=== PATIENT | female | born 1935 | race Caucasian/White ===

== ENCOUNTER 2017-02-25 15:03 | Inpatient (IN) | payer MEDICARE ==
[~2017-02-25] VITALS: Ht 152.4 cm; Wt 93.4 kg
--- NOTE | ~2017-02-25 | PR ---
[place], [place] PROGRESS NOTE NAME: [facility]BER [id number] UNIT #: [id number] ROOM: 404 DOCTOR: BENEDICT JACOBS MD BIRTHDATE: [birth year] DOS: 03/02/2017 SUBJECTIVE: The patient was seen by Dr. Wood yesterday, hemodynamically appears to be stable ____ in sinus rhythm. OBJECTIVE: VITAL SIGNS: Blood pressure is 150/60, heart rate is 75. HEENT: Unremarkable. The patient has 1300 mL in and positive fluid balance today. Yesterday, she was negative of 1330. NECK: Supple, no JVD. LUNGS: Diminished breath sounds. HEART: Sounds are regular. ABDOMEN: Obese, nontender. NEUROLOGIC: Stable. LABORATORY DATA: Hemoglobin 10.9, hematocrit 36.7, BUN and creatinine 35 and 1.25. INR is therapeutic to be 3.0. Cardiac status appears to be stable. IMPRESSION: History of congestive heart failure exacerbation, stable, shortness of breath, gastroesophageal reflux, hypertension, diabetes, and hyperlipidemia. RECOMMENDATIONS: Continue the present medications. Increase activity. Echo has been read by Dr. Wood. Echo revealed ejection fraction well preserved to be 70%, prosthetic aortic valve is functioning normally. Mean gradient is only 2. Left atrium is mildly dilated. Aortic valve cannot be very well visualized. There is bioprosthetic mitral valve. Trace of mitral regurgitation, mild mitral stenosis. Continue the present care. Monitor heart rate and blood pressure and we will follow up. BENEDICT JACOBS MD CM:PNTRANS [id number] BENEDICT JACOBS MD 03/03/17 0220 interface
--- NOTE | ~2017-02-25 | CON ---
[place], [place] REPORT OF CONSULTATION NAME[facility] [id number] UNIT #: [id number] ROOM: 404 DOCTOR: SIVA PALACIOS MD BIRTHDATE: [birth year] DOS: 03/01/2017 HISTORY OF PRESENT ILLNESS: This is an 81-year-old -[place] woman with a history of essential hypertension, hyperlipidemia, type 2 diabetes mellitus and czld-mp-jzfraqyo coronary artery disease. In April of last year, she had 50% stenosis in one of the vessels. LV ejection fraction was normal. At that time, she had a MAGDA performed which demonstrated critical aortic stenosis, LV ejection fraction of 75% and left ventricular hypertrophy. She had aortic valve replacement with a tissue prosthesis. She has never had a heart attack, stroke, cancer or any bleeding. She carries a diagnosis of peripheral vascular disease. She has had pacemaker implanted that I did a few months ago for heart block. She had aortic valve replacement with a tissue valve in March of last year and has had carotid endarterectomy, appendectomy and laparotomy. She does not smoke nor does she drink alcoholic beverages. She lives at home. This patient had noticed increasing shortness of breath over the last few weeks and also tiredness and weakness for a few months as well. She has had no orthopnea, but her swelling of the legs was quite significant, which prompted her to come to the Emergency Department. HOME MEDICATIONS: Include amiodarone 200 mg daily, atorvastatin 10 mg daily, bumetanide 0.5 mg daily, levothyroxine 125 mcg daily, metformin 500 mg b.i.d., potassium chloride 20 mEq daily, warfarin 5 mg alternating with 2.5 mg daily, and Cymbalta 60 mg daily. PHYSICAL EXAMINATION: GENERAL: The patient is moderately obese. She is alert and oriented. She is very pleasant. She is not in any distress. There is no anemia, thyromegaly, or finger clubbing. VITAL SIGNS: Pulse is regular at 64 beats per minute, blood pressure 112/72, previous blood pressure is 148/57. NECK: Normal JVP. AJR was negative. No carotid bruit was present. HEART: There is no cardiomegaly. Auscultation reveals normal aortic component of the second heart sound and a grade 2/6-3/6 early peaking systolic murmur over the aortic area. She has no edema at all in the lower extremities. RESPIRATORY: Auscultation reveals excellent breath sounds with occasional rhonchi and rare crackle. DIAGNOSTIC STUDIES: Chest x-ray on admission did not demonstrate any pulmonary edema. Cardiac size was normal. LABORATORY DATA: An ECG done on admission demonstrated atrial pacing at 63 beats per minute with nonspecific ST segment changes in anterior chest leads. Potassium is 4.2, sodium 141, BUN 29, creatinine 1.24. IMPRESSION: 1. Bioprosthetic aortic valve implanted about 10 months ago for critical aortic [place], [place] REPORT OF CONSULTATION NAME: [facility] GERBER [facility] [id number] UNIT #: [id number] ROOM: 404 DOCTOR: SIVA PALACIOS MD BIRTHDATE: [birth year] stenosis. 2. moderate coronary artery disease, asymptomatic. 3. Possible diastolic heart failure. She had quite a bit of edema of the lower extremities, which has now resolved with use of IV loop diuretic, but radiographic evidence of heart failure was not present on admission; therefore, diastolic heart failure is questionable. She is doing very well now, but has not ambulated at all out of the room since she has been admitted. I recommend ambulation and urinary catheter may be removed. I would like to see her in the office in the next couple of weeks. Thanks for this consult. SIVA PALACIOS MD CM:CONSTR:REPORT OF CONSULTATION 1208 03/02/17 0259 interface
--- NOTE | ~2017-02-25 | PR ---
[place], [place] PROGRESS NOTE NAME: ROMELIA GERBER [facility] #: [id number] UNIT #: [id number] ROOM: 404 DOCTOR: NICOLA RODRÍGUEZ MD BIRTHDATE: [birth year] DOS: 02/28/2017 SUBJECTIVE: The patient who has been admitted to the hospital with congestive heart failure and she is slowly getting better. There is no chest pain, no difficulty breathing, no nausea, no vomiting and she is also having GERD syndrome, hyperlipidemia, diabetes mellitus, hypertension, depression, osteoporosis, hypothyroidism and chronic pain. Her basic metabolic profile shows glucose 130, BUN 36, creatinine 1.33 showing some chronic renal failure and her CBC also showing hypochromic anemia with the hemoglobin 9.9, hematocrit 32.6. The patient is getting iron. OBJECTIVE: VITAL SIGNS: Her blood pressure is 125/71, pulse 74, respirations 20, temperature 97.6. HEART: Regular. CHEST: Having not much crepitations. EXTREMITIES: There is no swelling of legs. The patient is showing some improvement. NICOLA RODRÍGUEZ MD CM:PNTRANS 1246 1 NICOLA RODRÍGUEZ MD 03/01/17111 interface
[~2017-02-25 15:03] MED LIST: AMOXICILLIN500 MG PO; CEFTRIAXONE1 GM IM; CIPRO500 MG PO; CIPROFLOXACIN500 MG PO; CITALOPRAM20 MG PO; CITALOPRAM40 MG PO; COUMADIN0.5 M1 PO; COUMADIN10 M1 PO; COUMADIN2.5 M1 PO; COUMADIN5 M2 PO; CRESTOR5 MG PO; CYMBALTA30 MG PO; CYMBALTA60 MG PO; Coumadin2.5 MG PO; GLUCOPHAGE500 M1 PO; JANUMET 1000 MG1 TA1 PO; KEFLEX500 MG PO; KLORVESS EFFER20 ME1 PO; LASIX40 MG PO; LEVEMIR100 U/ML SC; LEXAPRO20 MG; LIPITOR40 MG PO; METOPROLOL TART50 M1 PO; METOPROLOL25 MG PO; OSCAL,OYSTER S500 MG PO; PREDNISONE10 MG PO; PRILOSEC20 MG PO; PT DOES NOT KNOW MED; SYNTHROID,LEVO25 MCG PO; SYNTHROID0.125 MG PO; SYNTHROID0.15 MG PO; TOVIAZ8 MG; TRAMADOL HCL50 MG PO; TRILEPTAL PO; TRILIPIX45 M1; TRILIPIX45 M1 PO; VICODIN 5/500 505 MG PO; WARFARIN SOD2 MG PO; ZOFRAN ODT4 MG SL
[2017-02-25 16:00] VITALS: BP 126/84
[2017-02-25 18:13] LABS: CKMB 2.5 ng/ml (0.5-3.6); CPK 67 U/L (26-192)
[2017-02-25 18:14] LABS: TROPONIN I < 0.015 ng/ml (<0.045)
[2017-02-25 20:00] VITALS: BP 130/80; BP 154/58
[2017-02-26] VITALS: BP 146/60
[2017-02-26 00:14] LABS: CKMB 2.3 ng/ml (0.5-3.6); CPK 55 U/L (26-192); TROPONIN I < 0.015 ng/ml (<0.045)
[2017-02-26 06:03] LABS: BASO # 0.1 10*3/uL (0.0-0.1); BASO % 0.9 % (0.0-1.0); EOS # 0.4 10*3/uL (0.0-0.4); HEMATOCRIT 31.4 % (37.0-47.0); HEMOGLOBIN 9.3 g/dl (12.0-16.0); LYMPH # 2.5 10*3/uL (1.3-4.4); MEAN CELL VOLUME 85.1 fl (81.0-99.0); MEAN CORPUSCULAR HGB 25.2 pg (27.0-31.0); MEAN CORPUSCULAR HGB CONC 29.6 g/dl (33.0-37.0); MEAN PLATELET VOLUME 11.3 fl (9.6-12.3); MONO # 0.9 10*3/uL (0.1-1.0); MONO % 11.4 % (3.0-9.0); NEUT # 3.6 10*3/uL (2.3-7.9); NEUT % 48.2 % (47.0-73.0); PLATELET COUNT AUTOMATED 189 10*3/uL (130-400); RED BLOOD COUNT 3.69 10*6/uL (4.10-5.10); RED CELL DISTRI WIDTH 16.2 % (0-14.5); WHITE BLOOD COUNT 7.4 10*3/uL (4.8-10.8)
[2017-02-26 06:10] LABS: CKMB 1.5 ng/ml (0.5-3.6); CPK 60 U/L (26-192)
[2017-02-26 06:17] LABS: TROPONIN I < 0.015 ng/ml (<0.045)
[2017-02-26 06:42] LABS: BILIRUBIN, TOTAL 0.4 mg/dl (0.2-1.0); MAGNESIUM 1.5 mg/dL (1.5-2.1); PHOSPHOROUS 3.2 mg/dL (2.5-4.9); POTASSIUM 4.5 mmol/L (3.5-5.1); TOTAL PROTEIN 7.1 gm/dL (6.4-8.2)
[2017-02-26 06:43] LABS: INTERNATIONAL NORM RATIO 2.2 (2.0-3.5); PROTHROMBIN TIME 24.2 SECONDS (9.0-12.4)
[2017-02-26 06:49] LABS: FREE T4 1.23 ng/dl (0.76-1.46); THYROID STIM HORMONE (HS) 3.16 uIU/ml (0.358-4.75)
[2017-02-26 08:00] VITALS: BP 156/82
[2017-02-26 09:24] LABS: FOLIC ACID 15.92 ng/mL (>5.38); VITAMIN D, 25-HYDROXY 31.8 ng/mL (30-100)
[2017-02-26] MEDS ORDERED: BUMETANIDE0.5 MG PO (11:13)
[2017-02-26] MEDS ORDERED: POTASSIUM CHLO20 ME3 PO (11:14)
[2017-02-26] MEDS ORDERED: AMIODARONE HCL200 MG PO (11:15)
[2017-02-26 12:00] VITALS: BP 160/76
[2017-02-26 16:00] VITALS: BP 164/60
[2017-02-26 20:00] VITALS: BP 120/55
[2017-02-27] VITALS: BP 153/61
[2017-02-27 06:58] LABS: BASO # 0.1 10*3/uL (0.0-0.1); BASO % 0.7 % (0.0-1.0); EOS # 0.3 10*3/uL (0.0-0.4); EOS % 4.4 % (1.0-4.0); HEMATOCRIT 32.6 % (37.0-47.0); HEMOGLOBIN 9.9 g/dl (12.0-16.0); IG # 0.1 10*3/uL (0.0-0.1); LYMPH # 2.2 10*3/uL (1.3-4.4); LYMPH % 29.8 % (27.0-41.0); MEAN CELL VOLUME 84.5 fl (81.0-99.0); MEAN CORPUSCULAR HGB 25.6 pg (27.0-31.0); MEAN CORPUSCULAR HGB CONC 30.4 g/dl (33.0-37.0); MEAN PLATELET VOLUME 10.6 fl (9.6-12.3); MONO # 0.8 10*3/uL (0.1-1.0); MONO % 10.9 % (3.0-9.0); NEUT # 3.9 10*3/uL (2.3-7.9); NEUT % 53.5 % (47.0-73.0); PLATELET COUNT AUTOMATED 212 10*3/uL (130-400); RED BLOOD COUNT 3.86 10*6/uL (4.10-5.10); WHITE BLOOD COUNT 7.3 10*3/uL (4.8-10.8)
[2017-02-27 07:19] LABS: ALBUMIN 3.1 gm/dl (3.1-4.5); BILIRUBIN, TOTAL 0.4 mg/dl (0.2-1.0); POTASSIUM 4.2 mmol/L (3.5-5.1); TOTAL PROTEIN 7.4 gm/dL (6.4-8.2)
[2017-02-27 08:00] VITALS: BP 103/62; BP 153/63
[2017-02-27 08:15] VITALS: BP 156/68
[2017-02-27 12:00] VITALS: BP 153/64
[2017-02-27 16:00] VITALS: BP 126/36
[2017-02-27 20:00] VITALS: BP 152/96
[2017-02-28] VITALS: BP 138/64
[2017-02-28 07:36] LABS: POTASSIUM 4.1 mmol/L (3.5-5.1)
[2017-02-28 08:00] VITALS: BP 154/64
[2017-02-28 11:48] VITALS: BP 125/71
[2017-02-28 16:00] VITALS: BP 126/57
[2017-02-28 20:00] VITALS: BP 135/51
[2017-03-01] VITALS: BP 148/57
[2017-03-01 07:24] LABS: INTERNATIONAL NORM RATIO 2.1 (2.0-3.5)
[2017-03-01 08:00] VITALS: BP 112/72
[2017-03-01 12:00] VITALS: BP 151/55
[2017-03-01 13:00] LABS: POTASSIUM 4.3 mmol/L (3.5-5.1)
[2017-03-01 16:00] VITALS: BP 149/60
[2017-03-01 20:00] VITALS: BP 145/50
[2017-03-02] VITALS: BP 153/66
[2017-03-02 06:40] LABS: BASO # 0.1 10*3/uL (0.0-0.1); BASO % 0.8 % (0.0-1.0); EOS # 0.4 10*3/uL (0.0-0.4); EOS % 3.9 % (1.0-4.0); HEMATOCRIT 36.7 % (37.0-47.0); HEMOGLOBIN 10.9 g/dl (12.0-16.0); IG # 0.1 10*3/uL (0.0-0.1); LYMPH # 2.5 10*3/uL (1.3-4.4); LYMPH % 27.1 % (27.0-41.0); MEAN CELL VOLUME 86.2 fl (81.0-99.0); MEAN CORPUSCULAR HGB 25.6 pg (27.0-31.0); MEAN CORPUSCULAR HGB CONC 29.7 g/dl (33.0-37.0); MEAN PLATELET VOLUME 9.9 fl (9.6-12.3); MONO # 1.4 10*3/uL (0.1-1.0); MONO % 14.9 % (3.0-9.0); NEUT # 4.9 10*3/uL (2.3-7.9); NEUT % 52.7 % (47.0-73.0); PLATELET COUNT AUTOMATED 234 10*3/uL (130-400); RED BLOOD COUNT 4.26 10*6/uL (4.10-5.10); RED CELL DISTRI WIDTH 16.4 % (0-14.5); WHITE BLOOD COUNT 9.3 10*3/uL (4.8-10.8)
[2017-03-02 06:59] LABS: PROTHROMBIN TIME 34.3 SECONDS (9.0-12.4)
[2017-03-02 07:07] LABS: ALBUMIN 3.1 gm/dl (3.1-4.5); BILIRUBIN, TOTAL 0.2 mg/dl (0.2-1.0); POTASSIUM 4.9 mmol/L (3.5-5.1); TOTAL PROTEIN 7.8 gm/dL (6.4-8.2)
[2017-03-02 08:00] VITALS: BP 148/63
[2017-03-02] MEDS ORDERED: VITAMIN B121000 MC1 PO (10:44)
== END 2017-03-02 12:48 | disposition home health service (06) | DRG 291 ==
LOC: 4E 15:03
PROVIDERS: Internal Medicine
DX: I13.0 Hypertensive heart and chronic kidney disease with heart failure and stage 1 through stage 4 chronic kidney disease, or unspecified chronic kidney disease (principal); I50.33 Acute on chronic diastolic (congestive) heart failure; N17.0 Acute kidney failure with tubular necrosis; E44.0 Moderate protein-calorie malnutrition; E11.22 Type 2 diabetes mellitus with diabetic chronic kidney disease; I05.2 Rheumatic mitral stenosis with insufficiency; Z68.41 Body mass index [BMI] 40.0-44.9, adult; K21.9 Gastro-esophageal reflux disease without esophagitis; E78.5 Hyperlipidemia, unspecified; F32.9 Major depressive disorder, single episode, unspecified; M81.0 Age-related osteoporosis without current pathological fracture; M19.90 Unspecified osteoarthritis, unspecified site; E03.9 Hypothyroidism, unspecified; E53.8 Deficiency of other specified B group vitamins; R91.1 Solitary pulmonary nodule; N18.3 Chronic kidney disease, stage 3 (moderate); D50.9 Iron deficiency anemia, unspecified; G89.29 Other chronic pain; E11.51 Type 2 diabetes mellitus with diabetic peripheral angiopathy without gangrene; Z53.29 Procedure and treatment not carried out because of patient's decision for other reasons; Z95.0 Presence of cardiac pacemaker; Z86.14 Personal history of Methicillin resistant Staphylococcus aureus infection; Z82.3 Family history of stroke; Z82.49 Family history of ischemic heart disease and other diseases of the circulatory system; Z88.1 Allergy status to other antibiotic agents; Z88.8 Allergy status to other drugs, medicaments and biological substances; Z79.899 Other long term (current) drug therapy; Z79.84 Long term (current) use of oral hypoglycemic drugs; Z79.01 Long term (current) use of anticoagulants; Z95.2 Presence of prosthetic heart valve

== ENCOUNTER → 2017-04-05 | Outpatient (CLI) | payer MEDICARE ==
[~2017-04-05] MED LIST changes: +AMIODARONE HCL200 MG PO; +BUMETANIDE0.5 MG PO; +POTASSIUM CHLO20 ME3 PO; +VITAMIN B121000 MC1 PO
== END | disposition home or self-care (01) ==
LOC: RAD 12:07
DX: I51.7 Cardiomegaly (principal); R05 Cough; R09.89 Other specified symptoms and signs involving the circulatory and respiratory systems; R06.02 Shortness of breath

== ENCOUNTER → 2017-06-03 | Outpatient (CLI) | payer MEDICARE | END | disposition home or self-care (01) | LOC: CT 06-02 10:00 → LAB 02:12 → CT 08:00 | PROVIDERS: Radiology Diagnostic Radiology | DX: R91.1 Solitary pulmonary nodule (principal); N28.1 Cyst of kidney, acquired; E11.9 Type 2 diabetes mellitus without complications; Z95.0 Presence of cardiac pacemaker; Z95.1 Presence of aortocoronary bypass graft ==

== ENCOUNTER 2017-06-25 16:36 | Inpatient (IN) | payer MEDICARE ==
[~2017-06-25] VITALS: Ht 152.4 cm; Wt 93.7 kg
--- NOTE | ~2017-06-25 | CON ---
[place], [place] REPORT OF CONSULTATION NAME: ROMELIA GERBER UNIT #: [id number] ROOM: 501 DOCTOR: VILMA SHAW,FEBRUARY BIRTHDATE: [birth year] DOS: 06/26/2017 HISTORY OF PRESENT ILLNESS: The patient is an 81-year-old female who is admitted from home with rash over her, which originally began under her abdominal pannus. She has issues with recurrent yeast in the area and usually uses Bag Riggins to clear it up. She saw Dr. Mccabe on Wednesday, who gave her Lamisil cream. He also gave her Flexeril for her sciatica. She developed increasing rash, was started on Diflucan yesterday. I reviewed the chart, discussed with the patient and contacted the patient's daughter as the patient is not a great historian for what meds were new and what she has had previously. The daughter states she is almost certain she has had the Diflucan previously and tolerated it without issue. The patient does have a history of cutaneous MRSA infections as well as other MRSA infections in the remote past. She was started on Zosyn and vancomycin for cellulitis of her mons pubis as well as nystatin powder earlier today. She has had no fevers or chills, does continue to have discomfort at the mons pubis area. Temperature of 100 since admission. PAST MEDICAL HISTORY: As above as well as chronic kidney disease, depression, diabetes, esophageal stricture, GERD, hyperlipidemia, hypertension, MRSA infection of her back as well as epidural abscess in 2003, MRSA of the urine in 2009, hypothyroidism, lung nodule, osteoarthritis, osteoporosis, peripheral vascular disease, severe aortic stenosis, bladder incontinence, vitamin B12 deficiency, carotid endarterectomy, CABG, pacemaker, appendectomy, exploratory laparotomy and esophageal dilatation. SOCIAL HISTORY: Nonsmoker, nondrinker, no illicit drug use. FAMILY MEDICAL HISTORY: Includes coronary artery disease in her father who in his 60s. Mother of a CVA at the age of 83. ALLERGIES: INCLUDE TAPE, DIAZEPAM, LEVOFLOXACIN AND NITROFURANTOIN. REVIEW OF SYSTEMS: As above in history of present illness as well as again denies any fevers or chills. No nausea, vomiting or diarrhea. No cough or shortness of breath. She does have rash under her arms, a little on her upper back area, on wrist, lower legs as well as significantly over her inguinal folds, mons pubis and under her breasts. Mild lower extremity edema. Further review of systems is unremarkable. CURRENT MEDICATIONS: Include vancomycin, insulin, K-Dur, nystatin powder, Lopressor, Cymbalta, Cordarone, Synthroid, Coumadin, Lipitor, Zosyn, Zofran, milk of magnesia, [place] and Tylenol. LABORATORY DATA: Show WBC is 10.0, platelets 208. BUN 27, creatinine 1.37, lactic acid of 3. UA noted. LFTs within normal limits. PHYSICAL EXAMINATION: GENERAL: An 81-year-old obese female, in no acute distress, nontoxic in appearance. HEAD, EYES, EARS, NOSE AND THROAT: Normocephalic. No thrush. Does have rash [place], [place] REPORT OF CONSULTATION NAME: ROMELIA GERBER UNIT #: [id number] ROOM: [facility] DOCTOR: VILMA SHAW,FEBRUARY BIRTHDATE: [birth year] up around her neck which is little bit of weeping, fungal verus adverse drug reaction. LUNGS: Clear to auscultation bilaterally. Respirations even and unlabored. HEART: Regular rhythm. No murmur appreciated. ABDOMEN: Soft, obese abdomen that is nontender, but she has under her abdominal pannus rash that extends from under the abdominal pannus, across the mons pubis, down over the entire groin and to the upper thighs. She does have satellite lesions consistent with what appears to be a mixture of fungal as well as cellulitis. She has induration and tenderness of the mons pubis, so no areas of fluctuance, no open wounds, but excoriation of the area along the seam underneath the panties. EXTREMITIES: +1 edema bilateral lower extremities, little petechial rash in bilateral lower anterior legs. She also has rash noted on her left wrist, under her axilla and under her breasts which is extensive as well as some on her upper back and posterior left shoulder. SKIN: Warm and dry. She also has ____ and mild erythematous look to her face as well. ASSESSMENT: Cellulitis of the mons pubis that resulted from extensive tinea corporis, which now appears to be complicated by an adverse drug reaction rash. This may be due to the Lamisil that she was using topically or possibly the Flexeril, which was a new medication for her. PLAN: At this point, we will continue the vancomycin and Zosyn, add fluconazole and check her MRSA screen, so we can possibly narrow down these antibiotics and follow up on the urine screen that has Gram-negative rods. The urine culture should also help guide antibiotics not for UTI, but due to the fact that she is incontinent and apparently contaminate the area with her urine quite frequently. Case was discussed with Dr. Myles Roman. MARIO ESPARZA CNP MYLES ROMAN MD CM:CONSTR:REPORT OF CONSULTATION 1810 06/28/17 0925 interface
--- NOTE | ~2017-06-25 | CON ---
[place], [place] REPORT OF CONSULTATION NAME: ROMELIA GERBER UNIT #: [id number] ROOM: 501 DOCTOR: JESSIE BELTRÁN,MYLES [place] BIRTHDATE: [birth year] DOS: 06/26/2017 ADDENDUM I agree with above plans as described after reviewing her chart and examining her labs and microbiology. We will follow the patient up clinically and make adjustments accordingly and follow along. Thanks for allowing us to the patient and participate in care. MYLES ROMAN MD CM:CONSTR:REPORT OF CONSULTATION 1202 06/28/17 2137 interface
--- NOTE | ~2017-06-25 | EKG ---
[place], [place] ELECTROCARDIOGRAM REPORT NAME: ROMELIA GERBER UNIT #: [id number] ROOM: [facility] DOCTOR: SIVA PALACIOS MD BIRTHDATE: [birth year] DOS: 06/25/2017 TIME: 1713 hour. Atrial pacing at 64 beats per minute. No evidence of ischemia or infraction. No previous tracing is available for comparison. SIVA PALACIOS MD CM:EKGRPT:ELECTROCARDIOGRAM REPORT [id number] SIVA PALACIOS MD
[2017-06-25 16:57] VITALS: BP 158/77
[2017-06-25 17:51] LABS: BASO # 0.1 10*3/uL (0.0-0.1); BASO % 0.7 % (0.0-1.0); EOS # 0.4 10*3/uL (0.0-0.4); EOS % 3.4 % (1.0-4.0); HEMATOCRIT 41.2 % (37.0-47.0); HEMOGLOBIN 12.7 g/dl (12.0-16.0); IG # 0.1 10*3/uL (0.0-0.1); LYMPH # 3.8 10*3/uL (1.3-4.4); LYMPH % 30.1 % (27.0-41.0); MEAN CELL VOLUME 92.2 fl (81.0-99.0); MEAN CORPUSCULAR HGB 28.4 pg (27.0-31.0); MEAN CORPUSCULAR HGB CONC 30.8 g/dl (33.0-37.0); MONO # 1.5 10*3/uL (0.1-1.0); MONO % 11.8 % (3.0-9.0); NEUT # 6.7 10*3/uL (2.3-7.9); NEUT % 53.1 % (47.0-73.0); PLATELET COUNT AUTOMATED 270 10*3/uL (130-400); RED BLOOD COUNT 4.47 10*6/uL (4.10-5.10); RED CELL DISTRI WIDTH 15.7 % (0-14.5); WHITE BLOOD COUNT 12.6 10*3/uL (4.8-10.8)
[2017-06-25 17:56] LABS: ALBUMIN 2.9 gm/dl (3.1-4.5); BILIRUBIN, TOTAL 0.3 mg/dl (0.2-1.0); TOTAL PROTEIN 7.3 gm/dL (6.4-8.2)
[2017-06-25 18:12] LABS: BILIRUBIN NEGATIVE (NEGATIVE); BLOOD NEGATIVE (NEGATIVE); CLARITY CLEAR (CLEAR); COLOR YELLOW (YELLOW); GLUCOSE NEGATIVE (NEGATIVE); KETONE NEGATIVE (NEGATIVE); LEUKO ESTERASE 1+ (NEGATIVE); NITRITE POSITIVE (NEGATIVE); PH 5.5 (5.0-9.0); PROTEIN NEGATIVE (NEGATIVE); SPECIFIC GRAVITY 1.015 (1.005-1.030); UROBILINOGEN 0.2 E.U./dl (0.2-1.0)
[2017-06-25 18:19] LABS: URINE REFLEX COMMENT YES (NO)
[2017-06-25 18:20] LABS: CALCIUM OXALATE CRYSTALS 1+
[2017-06-25 18:21] LABS: BACTERIA TRACE
[2017-06-25 18:22] LABS: RBC 16-20 rbc/hpf (0-2)
[2017-06-25 18:27] VITALS: BP 160/80
[2017-06-25] MEDS ORDERED: LEVOTHYROXIN0.125 MG PO (18:42)
[2017-06-25] MEDS ORDERED: LOPRESSOR50 M1 PO (18:43)
[2017-06-25] MEDS ORDERED: LIPITOR10 MG PO (18:43)
[2017-06-25] MEDS ORDERED: LOPRESSOR25 MG PO (18:44)
[2017-06-25 18:45] VITALS: BP 126/70
[2017-06-25] MEDS ORDERED: CYCLOBENZAPRINE10 MG PO (18:45)
[2017-06-25] MEDS ORDERED: CLARITIN10 MG PO (18:45)
[2017-06-25] MEDS ORDERED: FLUCONAZOLE100 MG PO (18:46)
[2017-06-25] MEDS ORDERED: LOSARTAN POTASS25 M1 PO (18:46)
[2017-06-25 19:36] LABS: LA>2 REFLEX 2 HR DRAW NOW
[2017-06-25 20:00] VITALS: BP 135/56
[2017-06-25 20:03] LABS: LA>2 RFLX FOLLOW UP AT 2 HRS 2.5 mmol/L (0.4-2.0)
[2017-06-25 21:53] LABS: LA>2 REFLEX 4 HR DRAW NOW
[2017-06-26] VITALS: BP 123/59
[2017-06-26 07:25] LABS: BASO % 0.2 % (0.0-1.0); HEMOGLOBIN 10.8 g/dl (12.0-16.0); IG # 0.1 10*3/uL (0.0-0.1); LYMPH # 1.9 10*3/uL (1.3-4.4); LYMPH % 18.8 % (27.0-41.0); MEAN CORPUSCULAR HGB 28.9 pg (27.0-31.0); MEAN CORPUSCULAR HGB CONC 31.4 g/dl (33.0-37.0); MEAN PLATELET VOLUME 11.3 fl (9.6-12.3); MONO # 0.2 10*3/uL (0.1-1.0); MONO % 1.8 % (3.0-9.0); NEUT # 7.9 10*3/uL (2.3-7.9); NEUT % 78.3 % (47.0-73.0); PLATELET COUNT AUTOMATED 208 10*3/uL (130-400); RED BLOOD COUNT 3.74 10*6/uL (4.10-5.10); RED CELL DISTRI WIDTH 15.9 % (0-14.5)
[2017-06-26 07:27] LABS: HEMATOCRIT 34.4 % (37.0-47.0)
[2017-06-26 07:36] LABS: HEMOGLOBIN A1c 7.7 % (4.8-5.6)
[2017-06-26 07:47] LABS: INTERNATIONAL NORM RATIO 2.8 (2.0-3.5); MAGNESIUM 1.4 mg/dL (1.5-2.1); PROTHROMBIN TIME 31.9 SECONDS (9.0-12.4)
[2017-06-26 07:58] LABS: FREE T4 1.46 ng/dl (0.76-1.46); PHOSPHOROUS 2.2 mg/dL (2.5-4.9); THYROID STIM HORMONE (HS) 0.465 uIU/ml (0.358-4.75)
[2017-06-26 08:00] VITALS: BP 100/48
[2017-06-26 08:03] LABS: VITAMIN D, 25-HYDROXY 24.9 ng/mL (30-100)
[2017-06-26 08:04] LABS: FOLIC ACID 21.02 ng/mL (>5.38)
[2017-06-26 12:00] VITALS: BP 124/54
[2017-06-26 16:00] VITALS: BP 88/70
[2017-06-26 20:59] VITALS: BP 147/67
[2017-06-27] VITALS: BP 145/51
[2017-06-27 06:46] LABS: HEMATOCRIT 37.7 % (37.0-47.0); HEMOGLOBIN 11.8 g/dl (12.0-16.0); MEAN CELL VOLUME 93.3 fl (81.0-99.0); MEAN CORPUSCULAR HGB 29.2 pg (27.0-31.0); MEAN CORPUSCULAR HGB CONC 31.3 g/dl (33.0-37.0); MEAN PLATELET VOLUME 10.4 fl (9.6-12.3); NUCLEATED RED BLOOD CELL 0.1 % (0.0-0.0); PLATELET COUNT AUTOMATED 206 10*3/uL (130-400); RED BLOOD COUNT 4.04 10*6/uL (4.10-5.10); RED CELL DISTRI WIDTH 16.1 % (0-14.5); WHITE BLOOD COUNT 15.9 10*3/uL (4.8-10.8)
[2017-06-27 07:12] LABS: LYMPHOCYTE # 2.1 10*3/uL (1.3-4.4); MONOCYTE # 1.7 10*3/uL (0.1-1.0); NEUTROPHIL # 12.1 10*3/uL (2.3-7.9); NEUTROPHILS 76 % (47-73); PLATELET SUFFICIENCY NORMAL (NORMAL); TOTAL CELLS COUNTED 100 #CELLS
[2017-06-27 07:22] LABS: PROTHROMBIN TIME 57.5 SECONDS (9.0-12.4)
[2017-06-27 07:24] LABS: INTERNATIONAL NORM RATIO 4.9 (2.0-3.5)
[2017-06-27 07:27] LABS: POTASSIUM 5.1 mmol/L (3.5-5.1)
[2017-06-27 08:00] VITALS: BP 126/74
[2017-06-27 16:00] VITALS: BP 147/67
[2017-06-28] VITALS: BP 157/78
[2017-06-28 06:00] LABS: HEMATOCRIT 38.3 % (37.0-47.0); HEMOGLOBIN 11.8 g/dl (12.0-16.0); MEAN CELL VOLUME 94.1 fl (81.0-99.0); MEAN CORPUSCULAR HGB CONC 30.8 g/dl (33.0-37.0); MEAN PLATELET VOLUME 10.7 fl (9.6-12.3); NUCLEATED RED BLOOD CELL 0.1 10*3/uL (0.0-0.0); NUCLEATED RED BLOOD CELL 0.4 % (0.0-0.0); PLATELET COUNT AUTOMATED 212 10*3/uL (130-400); RED BLOOD COUNT 4.07 10*6/uL (4.10-5.10); RED CELL DISTRI WIDTH 16.3 % (0-14.5); WHITE BLOOD COUNT 13.8 10*3/uL (4.8-10.8)
[2017-06-28 06:18] LABS: PROTHROMBIN TIME 64.9 SECONDS (9.0-12.4)
[2017-06-28 06:22] LABS: INTERNATIONAL NORM RATIO 5.5 (2.0-3.5)
[2017-06-28 06:53] LABS: BASOPHIL # 0.3 10*3/uL (0-0.1); BASOPHILS 2 % (0-1); EOSINOPHIL # 0.3 10*3/uL (0-0.4); EOSINOPHILS 2 % (1-4); LYMPHOCYTE # 3.6 10*3/uL (1.3-4.4); MONOCYTE # 1.2 10*3/uL (0.1-1.0); MYELOCYTES 3 % (0-0); NEUTROPHILS 58 % (47-73); PLATELET SUFFICIENCY NORMAL (NORMAL); TOTAL CELLS COUNTED 100 #CELLS
[2017-06-28 08:00] VITALS: BP 148/90
[2017-06-28 16:00] VITALS: BP 106/64
[2017-06-29] VITALS: BP 100/50; BP 92/78
[2017-06-29 05:48] LABS: ALBUMIN 2.4 gm/dl (3.1-4.5); ALKALINE PHOSPHATASE 103 U/L (45-117); BILIRUBIN, TOTAL 0.2 mg/dl (0.2-1.0); BUN 20 mg/dl (7-24); CARBON DIOXIDE 27 mmol/L (21-32); CHLORIDE 111 mmol/L (98-107); EST GLOM FILT AFRICAN AMERICAN > 60 ml/min; GLUCOSE 126 mg/dL (65-99); POTASSIUM 4.8 mmol/L (3.5-5.1); SGOT/AST 29 IU/L (3-35); SGPT/ALT 46 U/L (12-78); SODIUM 141 mmol/L (136-145); TOTAL PROTEIN 6.3 gm/dL (6.4-8.2); VANCOMYCIN TROUGH 11.9 ug/mL (10-20)
[2017-06-29 06:02] LABS: HEMATOCRIT 36.1 % (37.0-47.0); HEMOGLOBIN 10.9 g/dl (12.0-16.0); MEAN CELL VOLUME 93.5 fl (81.0-99.0); MEAN CORPUSCULAR HGB 28.2 pg (27.0-31.0); MEAN CORPUSCULAR HGB CONC 30.2 g/dl (33.0-37.0); NUCLEATED RED BLOOD CELL 0.1 10*3/uL (0.0-0.0); NUCLEATED RED BLOOD CELL 1.1 % (0.0-0.0); PLATELET COUNT AUTOMATED 180 10*3/uL (130-400); RED BLOOD COUNT 3.86 10*6/uL (4.10-5.10); RED CELL DISTRI WIDTH 16.2 % (0-14.5); WHITE BLOOD COUNT 10.1 10*3/uL (4.8-10.8)
[2017-06-29 06:26] LABS: PROTHROMBIN TIME 54.3 SECONDS (9.0-12.4)
[2017-06-29 06:30] LABS: INTERNATIONAL NORM RATIO 4.6 (2.0-3.5)
[2017-06-29 06:33] LABS: BASOPHIL # 0.1 10*3/uL (0-0.1); BASOPHILS 1 % (0-1); EOSINOPHIL # 0.3 10*3/uL (0-0.4); EOSINOPHILS 3 % (1-4); LYMPHOCYTE # 2.2 10*3/uL (1.3-4.4); METAMYELOCYTES 1 % (0-0); MONOCYTE # 0.4 10*3/uL (0.1-1.0); NEUTROPHILS 69 % (47-73); PLATELET SUFFICIENCY NORMAL (NORMAL); TOTAL CELLS COUNTED 100 #CELLS
[2017-06-29 08:00] VITALS: BP 159/53
[2017-06-29 16:00] VITALS: BP 142/64
[2017-06-30] VITALS: BP 153/91
[2017-06-30 05:52] LABS: BUN 19 mg/dl (7-24); CARBON DIOXIDE 25 mmol/L (21-32); CHLORIDE 111 mmol/L (98-107); EST GLOM FILT AFRICAN AMERICAN > 60 ml/min; GLUCOSE 122 mg/dL (65-99); POTASSIUM 4.8 mmol/L (3.5-5.1); SODIUM 140 mmol/L (136-145)
[2017-06-30 05:55] LABS: HEMATOCRIT 34.5 % (37.0-47.0); HEMOGLOBIN 10.5 g/dl (12.0-16.0); MEAN CELL VOLUME 92.5 fl (81.0-99.0); MEAN CORPUSCULAR HGB 28.2 pg (27.0-31.0); MEAN CORPUSCULAR HGB CONC 30.4 g/dl (33.0-37.0); MEAN PLATELET VOLUME 10.9 fl (9.6-12.3); NUCLEATED RED BLOOD CELL 0.1 10*3/uL (0.0-0.0); NUCLEATED RED BLOOD CELL 0.7 % (0.0-0.0); PLATELET COUNT AUTOMATED 184 10*3/uL (130-400); RED BLOOD COUNT 3.73 10*6/uL (4.10-5.10); RED CELL DISTRI WIDTH 16.1 % (0-14.5); WHITE BLOOD COUNT 10.4 10*3/uL (4.8-10.8)
[2017-06-30 06:16] LABS: INTERNATIONAL NORM RATIO 3.4 (2.0-3.5); PROTHROMBIN TIME 38.9 SECONDS (9.0-12.4)
[2017-06-30 06:57] LABS: BASOPHIL # 0.2 10*3/uL (0-0.1); BASOPHILS 2 % (0-1); EOSINOPHIL # 0.1 10*3/uL (0-0.4); EOSINOPHILS 1 % (1-4); LYMPHOCYTE # 1.9 10*3/uL (1.3-4.4); METAMYELOCYTES 1 % (0-0); MONOCYTE # 0.8 10*3/uL (0.1-1.0); MYELOCYTES 2 % (0-0); NEUTROPHIL # 7.1 10*3/uL (2.3-7.9); NEUTROPHILS 68 % (47-73); PLATELET SUFFICIENCY NORMAL (NORMAL); TOTAL CELLS COUNTED 100 #CELLS
[2017-06-30 08:00] VITALS: BP 150/66
[2017-06-30] MEDS ORDERED: FLUCONAZOLE100 MG PO ×2 (12:00→12:03)
[2017-06-30] MEDS ORDERED: ZEASORB-AF2% T (12:01)
[2017-06-30] MEDS ORDERED: NYSTOP100000 U/G T (12:01)
[2017-06-30 16:00] VITALS: BP 108/70
[2017-06-30 20:53] VITALS: BP 140/56
[2017-07-01] VITALS: BP 102/80
[2017-07-01 06:36] LABS: INTERNATIONAL NORM RATIO 2.1 (2.0-3.5); PROTHROMBIN TIME 23.7 SECONDS (9.0-12.4)
[2017-07-01] MEDS ORDERED: PRINIVIL10 MG PO (07:45)
[2017-07-01] MEDS ORDERED: ATARAX,VISTARIL50 MG PO (07:45)
[2017-07-01] MEDS ORDERED: COUMADIN2 M1 PO (07:45)
[2017-07-01 08:00] VITALS: BP 121/45
== END 2017-07-01 16:41 | disposition home health service (06) | DRG 871 ==
LOC: ED 16:36 → 5E 17:15 → EDHOLD 17:15 → 5E 17:35
PROVIDERS: Family Medicine; Internal Medicine; Internal Medicine Hospice and Palliative Medicine; Student in an Organized Health Care Education/Training Program
DX: A41.9 Sepsis, unspecified organism (principal); N17.0 Acute kidney failure with tubular necrosis; E87.2 Acidosis; L03.818 Cellulitis of other sites; E44.0 Moderate protein-calorie malnutrition; I13.0 Hypertensive heart and chronic kidney disease with heart failure and stage 1 through stage 4 chronic kidney disease, or unspecified chronic kidney disease; F32.9 Major depressive disorder, single episode, unspecified; E11.22 Type 2 diabetes mellitus with diabetic chronic kidney disease; K21.9 Gastro-esophageal reflux disease without esophagitis; E78.5 Hyperlipidemia, unspecified; E03.9 Hypothyroidism, unspecified; R91.1 Solitary pulmonary nodule; N18.3 Chronic kidney disease, stage 3 (moderate); I50.9 Heart failure, unspecified; D72.829 Elevated white blood cell count, unspecified; E11.65 Type 2 diabetes mellitus with hyperglycemia; M81.0 Age-related osteoporosis without current pathological fracture; I35.0 Nonrheumatic aortic (valve) stenosis; M15.9 Polyosteoarthritis, unspecified; L30.4 Erythema intertrigo; E11.51 Type 2 diabetes mellitus with diabetic peripheral angiopathy without gangrene; Z95.1 Presence of aortocoronary bypass graft; Z95.0 Presence of cardiac pacemaker; Z88.1 Allergy status to other antibiotic agents; Z91.09 Other allergy status, other than to drugs and biological substances; Z90.49 Acquired absence of other specified parts of digestive tract; Z82.49 Family history of ischemic heart disease and other diseases of the circulatory system; Z82.3 Family history of stroke; Z83.3 Family history of diabetes mellitus; Z79.52 Long term (current) use of systemic steroids; Z79.899 Other long term (current) drug therapy; Z68.39 Body mass index [BMI] 39.0-39.9, adult; Z79.84 Long term (current) use of oral hypoglycemic drugs

== ENCOUNTER → 2017-07-07 | Outpatient (CLI) | payer MEDICARE ==
[~2017-07-07] MED LIST changes: +ATARAX,VISTARIL50 MG PO; +CLARITIN10 MG PO; +COUMADIN2 M1 PO; +CYCLOBENZAPRINE10 MG PO; +FLUCONAZOLE100 MG PO; +LEVOTHYROXIN0.125 MG PO; +LIPITOR10 MG PO; +LOPRESSOR25 MG PO; +LOPRESSOR50 M1 PO; +LOSARTAN POTASS25 M1 PO; +NYSTOP100000 U/G T; +PRINIVIL10 MG PO; +ZEASORB-AF2% T
== END | disposition home or self-care (01) ==
LOC: US 07-06 16:00
DX: R60.0 Localized edema (principal); R55 Syncope and collapse; R42 Dizziness and giddiness

== ENCOUNTER → 2017-07-20 | Outpatient (CLI) | payer MEDICARE ==
[2017-07-20 11:52] LABS: ALBUMIN 3.3 gm/dl (3.1-4.5); CREATININE 1.15 mg/dL (0.55-1.02); POTASSIUM 5.5 mmol/L (3.5-5.1); TOTAL PROTEIN 8.2 gm/dL (6.4-8.2)
== END | disposition home or self-care (01) ==
LOC: LAB 11:22
PROVIDERS: Internal Medicine
DX: R06.02 Shortness of breath (principal)

== ENCOUNTER → 2017-08-25 | Outpatient (CLI) | payer MEDICARE | END | disposition home or self-care (01) | LOC: RAD 19:43 | DX: M16.0 Bilateral primary osteoarthritis of hip (principal); M47.896 Other spondylosis, lumbar region; M17.12 Unilateral primary osteoarthritis, left knee ==

== ENCOUNTER → 2018-01-07 | Outpatient (CLI) | payer MEDICARE | END | disposition home or self-care (01) | LOC: RAD 13:49 | DX: I51.7 Cardiomegaly (principal); I10 Essential (primary) hypertension; E11.9 Type 2 diabetes mellitus without complications; Z95.0 Presence of cardiac pacemaker ==

== ENCOUNTER → 2018-04-08 | Outpatient (CLI) | payer MEDICARE | END | disposition home or self-care (01) | LOC: US 02:40 | DX: I70.8 Atherosclerosis of other arteries (principal); E11.51 Type 2 diabetes mellitus with diabetic peripheral angiopathy without gangrene ==

== ENCOUNTER → 2018-06-03 | Outpatient (CLI) | payer MEDICARE | END | disposition home or self-care (01) | LOC: LAB 12:01 | DX: R05 Cough (principal) ==

== ENCOUNTER → 2018-08-30 | Outpatient (CLI) | payer MEDICARE | END | disposition home or self-care (01) | LOC: RAD 08:43 | DX: S33.140A Subluxation of L4/L5 lumbar vertebra, initial encounter (principal); M41.86 Other forms of scoliosis, lumbar region; M48.061 Spinal stenosis, lumbar region without neurogenic claudication; R07.81 Pleurodynia; X58.XXXA Exposure to other specified factors, initial encounter; Y93.89 Activity, other specified; Y92.89 Other specified places as the place of occurrence of the external cause; Y99.8 Other external cause status ==

== ENCOUNTER → 2018-10-17 | Outpatient (CLI) | payer MEDICARE | END | disposition home or self-care (01) | LOC: RAD 17:25 | DX: M19.012 Primary osteoarthritis, left shoulder (principal) ==

== ENCOUNTER → 2019-01-17 | Outpatient (CLI) | payer MEDICARE ==
[~2019-01-17] MED LIST changes: +AMINOPHYLLIN200 MG PO; +AMITRIPTYLINE50 MG PO; +BUMETANIDE2 MG PO; +DURAGESIC1 EACH TD; +Duragesic 25 M25 MCG TD; -LEVOTHYROXIN0.125 MG PO; +LEVOTHYROXINE150 MCG PO
== END | disposition home or self-care (01) ==
LOC: US 01-13 02:04 → LAB 01-16 01:03
PROVIDERS: Internal Medicine
DX: K76.0 Fatty (change of) liver, not elsewhere classified (principal); K80.20 Calculus of gallbladder without cholecystitis without obstruction; I11.9 Hypertensive heart disease without heart failure; I12.9 Hypertensive chronic kidney disease with stage 1 through stage 4 chronic kidney disease, or unspecified chronic kidney disease; N18.3 Chronic kidney disease, stage 3 (moderate); Z90.710 Acquired absence of both cervix and uterus

== ENCOUNTER 2019-02-25 00:03 | Inpatient (IN) | payer MEDICARE ==
[~2019-02-25] VITALS: Ht 165.1 cm; Wt 76.3 kg
[2019-02-25] VITALS (8 sets, daily range): BP systolic 121–168; BP diastolic 55–93
--- NOTE | ~2019-02-25 | EKG ---
[place], [place] ELECTROCARDIOGRAM REPORT NAME: ROMELIA GERBER UNIT #: [id number] ROOM: 425 DOCTOR: EPIPHANY DRAFT REPORT BIRTHDATE: [birth year] [facility] Test Date: 2019-03-01 Test Time: 07:48:48 Pat Name: ROMELIA GERBER Department: Room: 425 1 Gender: F Computer Publisher: Esthela Thomas : 1935 Requested By: CORY HENRY Order Number: [id number] Reading MD: Cory Henry MD Measurements Intervals [place] Rate: 115 P: -74 UT: 70 QRS: 265 QRSD: 156 T: 86 QT: 467 QTc: 646 Interpretive Statements Ventricular-paced rhythm No further analysis attempted due to paced rhythm Electronically Signed On 03-22-2019 7:26:13 PDT by Cory Henry MD CM:EKGRPT:ELECTROCARDIOGRAM REPORT 0748 0726 CORY HENRY MD EPIPHANY DRAFT REPORT CORY HENRY MD
--- NOTE | ~2019-02-25 | EKG ---
[place], [place] ELECTROCARDIOGRAM REPORT NAME: ROMELIA GERBER UNIT #: [id number] ROOM: 425 DOCTOR: NAZANIN DRAFT REPORT BIRTHDATE: [birth year] [facility] Test Date: 2019-02-25 Test Time: 00:34:03 Pat Name: ROMELIA GERBER Department: Room: 425 Gender: F Social Services Designee: Sri Fernandez : 1935 Requested By: LAN SALVADOR Order Number: [id number] Reading MD: Elias Mathis MD Measurements Intervals [place] Rate: 66 P: 38 ID: 104 QRS: 93 QRSD: 114 T: 49 QT: 501 QTc: 525 Interpretive Statements Sinus rhythm Short ID interval Incomplete right bundle branch block Abnormal R-wave progression, late transition Nonspecific T abnormalities, lateral leads Prolonged QT interval Electronically Signed On 02-25-2019 15:06:27 PDT by Elias Mathis MD CM:EKGRPT:ELECTROCARDIOGRAM REPORT 0034 1506 LAN SALVADOR MD EPIPHANY DRAFT REPORT LAN SALVADOR MD
[~2019-02-25 00:03] MED LIST changes: -AMINOPHYLLIN200 MG PO; -AMITRIPTYLINE50 MG PO; -BUMETANIDE2 MG PO; -DURAGESIC1 EACH TD; -Duragesic 25 M25 MCG TD
[2019-02-25] MEDS ORDERED: BUMETANIDE2 MG PO (00:14)
[2019-02-25 00:41] LABS: BASO # 0.1 10*3/uL (0.0-0.1); BASO % 0.8 % (0.0-1.0); EOS # 0.6 10*3/uL (0.0-0.4); EOS % 5.7 % (1.0-4.0); HEMATOCRIT 32.6 % (37.0-47.0); HEMOGLOBIN 9.7 g/dl (12.0-16.0); LYMPH # 2.2 10*3/uL (1.3-4.4); LYMPH % 22.9 % (27.0-41.0); MEAN CELL VOLUME 90.3 fl (81.0-99.0); MEAN CORPUSCULAR HGB 26.9 pg (27.0-31.0); MEAN CORPUSCULAR HGB CONC 29.8 g/dl (33.0-37.0); MEAN PLATELET VOLUME 11.1 fl (9.6-12.3); MONO # 1.1 10*3/uL (0.1-1.0); MONO % 11.5 % (3.0-9.0); NEUT # 5.7 10*3/uL (2.3-7.9); NEUT % 58.8 % (47.0-73.0); PLATELET COUNT AUTOMATED 222 10*3/uL (130-400); RED BLOOD COUNT 3.61 10*6/uL (4.10-5.10); RED CELL DISTRI WIDTH 14.5 % (0-14.5); WHITE BLOOD COUNT 9.7 10*3/uL (4.8-10.8)
[2019-02-25 00:50] LABS: INTERNATIONAL NORM RATIO 1.8 (2.0-3.5)
[2019-02-25 01:07] LABS: ALBUMIN 2.9 gm/dl (3.1-4.5); ALKALINE PHOSPHATASE 161 U/L (45-117); BUN 15 mg/dl (7-24); CHLORIDE 103 mmol/L (98-107); CREATININE 1.13 mg/dL (0.55-1.02); POTASSIUM 3.7 mmol/L (3.5-5.1); SGOT/AST 41 IU/L (3-35); SGPT/ALT 26 U/L (12-78); SODIUM 140 mmol/L (136-145); TOTAL PROTEIN 7.7 gm/dL (6.4-8.2); TROPONIN I < 0.015 ng/ml (<0.045)
--- NOTE | 2019-02-25 01:27 | NUR ---
PT REPORTS PAIN MEDICATION IS EFFECTIVE.
[2019-02-25 02:15] LABS: BILIRUBIN NEGATIVE (NEGATIVE); BLOOD NEGATIVE (NEGATIVE); CLARITY SL CLOUDY (CLEAR); COLOR YELLOW (YELLOW); GLUCOSE NEGATIVE (NEGATIVE); KETONE NEGATIVE (NEGATIVE); LEUKO ESTERASE NEGATIVE (NEGATIVE); NITRITE POSITIVE (NEGATIVE)
--- NOTE | 2019-02-25 02:23 | NUR ---
IT HELP DESK MANAGER CONTACTED FOR MEDICATION OF MAGNESIUM SULFATE.
[2019-02-25 02:40] LABS: BACTERIA 3+
--- NOTE | 2019-02-25 02:40 | NUR ---
PT ORDERED 2GM MAGNESIUM SULFATE.RN SUPERVISORE PROVIDED TWO 1GM BAGS MAGNESIUM SULFATE TO FILL ORDER.1ST BAG OF 1GM MAG SULFATE INITIATED AT THIS TIME.
--- NOTE | 2019-02-25 02:50 | NUR ---
A 83, admitted to 4E, under the services of PHI Bailey MD with a diagnosis of CELLULITIS B/L EXT, HYPOMAGNESEMIA. Chief complaint is INCREASE PAIN AND SWELLING LE. Patient arrived via bed from ER. Monitor applied. Initial assessment completed. Vital signs taken and recorded. PHI BAILEY MD notified of admission to the unit. Orders received. See assessment for past medical history, medications and allergies. Patient and/or family oriented to unit. [address] visitation policy reviewed. Clothing/patient valuable form completed. JACINTO GONZALEZ R
--- NOTE | 2019-02-25 03:51 | NUR ---
CALLED DR. BALES MADE AWARE PT ADMITTED TO FLOOR. ALSO MADE AWARE MEDICATIONS THAT ARE CONFIRMED SHE AGREED SHE IS ON THEM BUT NOT SURE OF DOSE OF OTHER MEDICATIONS. I LET HIM KNOW WE WILL VERIFY MEDICATION TOMORROW.
--- NOTE | 2019-02-25 05:45 | NUR ---
CALLED PLATER HELPER FOR IV ANTIBIOTIC. WAITING FOR MED.
--- NOTE | 2019-02-25 06:30 | NUR ---
TOLERATED ROUTINE MED WITH NO PROBLEM. BSG-110, SEE EMAR. IVF INFUSING WITH NO PROBLEM. TOLERATING IV ANTIBIOTIC. CALL LIGHT IN REACH.
--- NOTE | 2019-02-25 07:20 | NUR ---
REPORT OBTAINED FROM [facility]. PATIENT IS RESTING IN BED, EYES CLOSED. NO DISTRESS NOTED, RESP ARE ERND ON ROOM AIR. BED IS LOCKED IN LOWEST POSITION. CALL LIGHT LEFT WITHIN REACH.
[2019-02-25 07:23] LABS: ALBUMIN 2.8 gm/dl (3.1-4.5); POTASSIUM 3.8 mmol/L (3.5-5.1)
[2019-02-25 07:28] LABS: CREATININE 1.09 mg/dL (0.55-1.02); PHOSPHOROUS 2.8 mg/dL (2.5-4.9); TOTAL PROTEIN 7.7 gm/dL (6.4-8.2)
[2019-02-25] MEDS ORDERED: COUMADIN2.5 M1 PO (09:15)
[2019-02-25] MEDS ORDERED: COUMADIN5 M2 PO (09:16)
--- NOTE | 2019-02-25 09:17 | NUR ---
PATIENT'S PHARMACY CALLED. MEDICATIONS UPDATED TO MOST RECENT LIST.
--- NOTE | 2019-02-25 16:40 | NUR ---
PATIENT MEDICATED WITH NORCO FOR RIGHT KNEE PAIN 07/01. WILL MONITOR
--- NOTE | 2019-02-25 20:55 | NUR ---
ANSWERING SERVICE FOR INFECTIOUS DISEASE AWARE OF CONSULT
--- NOTE | 2019-02-25 21:33 | NUR ---
DR MILLAN AWARE OF CONSULT. STATES WILL SEE PATIENT TOMORROW.
--- NOTE | 2019-02-25 22:06 | NUR ---
NORCO REQUESTED AND GIVEN FOR C/O BLE KNEE PAIN. WILL MONITOR EFFECTIVENESS.
[2019-02-26] VITALS: BP 142/53
[2019-02-26 06:41] LABS: ALBUMIN 2.6 gm/dl (3.1-4.5); CREATININE 1.23 mg/dL (0.55-1.02); POTASSIUM 3.7 mmol/L (3.5-5.1); URIC ACID 4.5 mg/dL (2.6-6.0)
[2019-02-26 06:43] LABS: INTERNATIONAL NORM RATIO 1.3 (2.0-3.5); TOTAL PROTEIN 7.1 gm/dL (6.4-8.2)
[2019-02-26 07:52] LABS: FERRITIN 37.1 ng/mL (10.0-291.0); VITAMIN D, 25-HYDROXY 23.1 ng/mL (30-100)
[2019-02-26 08:00] VITALS: BP 138/72
[2019-02-26 12:00] VITALS: BP 115/68
[2019-02-26 16:00] VITALS: BP 137/58
--- NOTE | 2019-02-26 18:26 | NUR ---
PHARMACIST STATED TO DISREGARD 2.5MG OF COUMADIN AND TO ONLY GIVE 4MG. 2.5MG WILL BE D/C
--- NOTE | 2019-02-26 18:30 | NUR ---
PATIENT MEDICATED WITH IV DILAUDID, PUSHED SLOWLY. PATIENT TOLERATED WELL. WILL MONITOR
[2019-02-26 20:00] VITALS: BP 101/59
[2019-02-27] VITALS: BP 119/61
--- NOTE | 2019-02-27 03:11 | NUR ---
DILAUDID GIVEN FOR RT LEG PAIN. WILL MONITOR EFFECTIVENESS.
[2019-02-27 06:55] LABS: INTERNATIONAL NORM RATIO 1.4 (2.0-3.5)
[2019-02-27 07:12] LABS: CREATININE 1.36 mg/dL (0.55-1.02)
[2019-02-27 08:00] VITALS: BP 144/60
--- NOTE | 2019-02-27 08:01 | NUR ---
24 HR chart check completed.
[2019-02-27 12:00] VITALS: BP 145/47
[2019-02-27 16:00] VITALS: BP 157/54
[2019-02-27 20:00] VITALS: BP 129/86; BP 136/49
--- NOTE | 2019-02-27 20:02 | NUR ---
PT. GIVEN NORCO ORDERED FOR COMPLAINTS OF RIGHT LEG PAIN.
--- NOTE | 2019-02-27 20:38 | NUR ---
PT. STATED NORCO WAS EFFECTIVE. SANDRA DURANT RN
[2019-02-28] VITALS: BP 154/51
[2019-02-28 07:20] LABS: INTERNATIONAL NORM RATIO 1.5 (2.0-3.5)
--- NOTE | 2019-02-28 09:24 | NUR ---
PT GIVEN NORCO AT THIS TIME FOR C/O BLE PAIN. WILL MONITOR FOR EFFECTIVENESS.
--- NOTE | 2019-02-28 10:28 | NUR ---
NORCO EFFECTIVE AT THIS TIME.
--- NOTE | 2019-02-28 11:00 | NUR ---
Vice Chancellor in to see patient. No new needs or request at this time. She lives at home with her son and pdkyemfk-hy-ssa. She is independent in her ADLs and ambulates with a walker. Discussed home health care services and she denies any home needs at this time. When medically stable she will be discharged to home.
[2019-02-28 12:00] VITALS: BP 141/53
--- NOTE | 2019-02-28 13:00 | NUR ---
PT GIVEN 2 UNITS INSULIN FOR BLOOD SUGAR OF 179. PT ASSISTED BACK TO CHAIR FROM BATHROOM, GAIT UNSTEADY. ALL SAFETY MEASURES IN PLACE FOR PT AT THIS TIME. WILL CONTINUE TO MONITOR. CALL LIGHT IN REACH.
[2019-02-28 16:00] VITALS: BP 138/52
--- NOTE | 2019-02-28 16:50 | NUR ---
SITTING UP IN CHAIR. TOLERATED ROUTINE MED WITH NO PROBLEM. NO C/O AT THIS TIME. RESP-EASY AND REGULAR. CALL LIGHT IN REACH. SEE SHIFT ASSESSMENT.
[2019-02-28 20:00] VITALS: BP 138/52
--- NOTE | 2019-02-28 20:30 | NUR ---
24 HR chart check completed.
--- NOTE | 2019-02-28 21:00 | NUR ---
PATIENT VISITING WITH FAMILY. QUESTIONS ANSWERED.
--- NOTE | 2019-02-28 22:00 | NUR ---
RESTING IN BED WITH NO DISTRESS NOTED. RESPIRATIONS EASY. LUNGS DIMINISHED, CLEAR. PULSE OX 96% RA. TRACE BLE EDEMA. CALL LIGHT WITHIN REACH. NO VOICED COMPLAINTS
[2019-03-01] VITALS: BP 129/52
--- NOTE | 2019-03-01 | NUR ---
SLEEPING. NO DISTRESS NOTED. RESPIRATIONS EASY. VSS. CALL LIGHT WITHIN REACH
--- NOTE | 2019-03-01 06:00 | NUR ---
SLEPT THROUGHOUT NIGHT WITH NO DISTRESS NOTED. RESPIRATIONS EASY. CALL LIGHT WITHIN REACH. NO VOICED COMPLAINTS THIS SHIFT
[2019-03-01 06:31] LABS: INTERNATIONAL NORM RATIO 2.2 (2.0-3.5)
[2019-03-01 06:48] LABS: CREATININE 1.21 mg/dL (0.55-1.02); POTASSIUM 3.7 mmol/L (3.5-5.1)
[2019-03-01 10:00] VITALS: BP 140/82
--- NOTE | 2019-03-01 11:00 | NUR ---
Activity Manager in to see patient. No new needs or request at this time. She is sitting up in her bedside chair without distress notes. She denies any home needs and states she is able to get around by herself. When medically stable she will be discharged to home.
[2019-03-01 12:00] VITALS: BP 116/48
[2019-03-01 16:00] VITALS: BP 145/66
[2019-03-01 20:00] VITALS: BP 106/56
[2019-03-02] VITALS: BP 142/64
[2019-03-02 07:24] LABS: INTERNATIONAL NORM RATIO 2.7 (2.0-3.5)
[2019-03-02 07:41] LABS: POTASSIUM 3.8 mmol/L (3.5-5.1)
[2019-03-02 07:42] LABS: CREATININE 1.41 mg/dL (0.55-1.02)
[2019-03-02 07:58] VITALS: BP 134/82
[2019-03-02 08:00] VITALS: BP 154/88
--- NOTE | 2019-03-02 11:00 | NUR ---
Head Teller in to see patient. No new needs or request at this time. Discussed home health care services and she denies any home needs at this time. When medically stable she will be discharged to home.
[2019-03-02 12:00] VITALS: BP 126/54
[2019-03-02] MEDS ORDERED: AMITRIPTYLINE50 MG PO (13:12)
[2019-03-02] MEDS ORDERED: AMINOPHYLLIN200 MG PO (13:14)
--- NOTE | 2019-03-02 14:45 | NUR ---
Discharge in process. No Occupational Therapy evaluation completed at this time. Petty Taylor OTR/l
[2019-03-02 16:00] VITALS: BP 119/46
--- NOTE | 2019-03-02 16:58 | NUR ---
Discharge instructions reviewed with patient/family. Patient receptive and verbalizes understanding. Follow-up care arranged. Written instructions given to patient/family. JOSEPHINE HAMMER
== END 2019-03-02 16:58 | disposition home or self-care (01) | DRG 603 ==
LOC: ED 00:03 → 4E 01:50 → EDHOLD 01:50 → 4E 02:08
PROVIDERS: Emergency Medicine Emergency Medical Services; Internal Medicine Nephrology; Student in an Organized Health Care Education/Training Program; ADMIT Internal Medicine
DX: L03.116 Cellulitis of left lower limb (principal); N39.0 Urinary tract infection, site not specified; L03.115 Cellulitis of right lower limb; E83.51 Hypocalcemia; E83.42 Hypomagnesemia; F32.9 Major depressive disorder, single episode, unspecified; E11.22 Type 2 diabetes mellitus with diabetic chronic kidney disease; K21.9 Gastro-esophageal reflux disease without esophagitis; E78.5 Hyperlipidemia, unspecified; I12.9 Hypertensive chronic kidney disease with stage 1 through stage 4 chronic kidney disease, or unspecified chronic kidney disease; N18.9 Chronic kidney disease, unspecified; M81.0 Age-related osteoporosis without current pathological fracture; R29.6 Repeated falls; E11.51 Type 2 diabetes mellitus with diabetic peripheral angiopathy without gangrene; I35.0 Nonrheumatic aortic (valve) stenosis; D50.9 Iron deficiency anemia, unspecified; Z66 Do not resuscitate; Z51.5 Encounter for palliative care; R80.9 Proteinuria, unspecified; M16.11 Unilateral primary osteoarthritis, right hip; M17.10 Unilateral primary osteoarthritis, unspecified knee; B96.20 Unspecified Escherichia coli [E. coli] as the cause of diseases classified elsewhere; E03.9 Hypothyroidism, unspecified; E11.40 Type 2 diabetes mellitus with diabetic neuropathy, unspecified; R79.1 Abnormal coagulation profile; Z86.14 Personal history of Methicillin resistant Staphylococcus aureus infection; Z88.8 Allergy status to other drugs, medicaments and biological substances; Z88.1 Allergy status to other antibiotic agents; Z91.048 Other nonmedicinal substance allergy status; Z95.0 Presence of cardiac pacemaker; Z90.49 Acquired absence of other specified parts of digestive tract; Z90.710 Acquired absence of both cervix and uterus; Z82.49 Family history of ischemic heart disease and other diseases of the circulatory system; Z83.3 Family history of diabetes mellitus; Z82.3 Family history of stroke; Z86.718 Personal history of other venous thrombosis and embolism; Z79.899 Other long term (current) drug therapy; Z68.30 Body mass index [BMI] 30.0-30.9, adult

== ENCOUNTER 2019-04-06 13:59 | Inpatient (IN) | payer MEDICARE ==
[~2019-04-06] VITALS: Ht 152.4 cm; Wt 76.2 kg
--- NOTE | ~2019-04-06 | EKG ---
[place], [place] ELECTROCARDIOGRAM REPORT NAME: ROMELIA GERBER UNIT #: [id number] ROOM: [facility] DOCTOR: NAZANIN DRAFT REPORT BIRTHDATE: [birth year] [facility] Test Date: 2019-04-06 Test Time: 15:33:45 Pat Name: ROMELIA GERBER Department: Room: [facility] Gender: F Physical Therapy Asst: HILTON : 1935 Requested By: LESLY WILLS Order Number: [id number] Reading MD: Elias Mathis MD Measurements Intervals [place] Rate: 67 P: 0 MA: 54 QRS: 93 QRSD: 126 T: -63 QT: 584 QTc: 617 Interpretive Statements Atrial-paced complexes Right bundle branch block Repol abnrm suggests ischemia, lateral leads Compared to ECG 03/01/2019 07:48:48 Right bundle-branch block now present Early repolarization now present Possible ischemia now present Ventricular-paced complex(es) or rhythm no longer present Electronically Signed On 04-06-2019 15:52:27 PDT by Elias Mathis MD CM:EKGRPT:ELECTROCARDIOGRAM REPORT [id number] 1552 LESLY WILLS EPIPHANY DRAFT REPORT LESLY WILLS
[~2019-04-06 13:59] MED LIST changes: +AMINOPHYLLIN200 MG PO; +AMITRIPTYLINE50 MG PO; +BUMETANIDE2 MG PO
[2019-04-06 14:03] VITALS: BP 149/43
[2019-04-06 15:07] LABS: BASO # 0.1 10*3/uL (0.0-0.1); BASO % 0.6 % (0.0-1.0); EOS # 0.2 10*3/uL (0.0-0.4); EOS % 1.9 % (1.0-4.0); HEMATOCRIT 31.6 % (37.0-47.0); HEMOGLOBIN 9.4 g/dl (12.0-16.0); LYMPH # 2.6 10*3/uL (1.3-4.4); LYMPH % 26.7 % (27.0-41.0); MEAN CORPUSCULAR HGB 26.5 pg (27.0-31.0); MEAN CORPUSCULAR HGB CONC 29.7 g/dl (33.0-37.0); MEAN PLATELET VOLUME 10.9 fl (9.6-12.3); MONO # 0.8 10*3/uL (0.1-1.0); MONO % 8.6 % (3.0-9.0); NEUT # 5.9 10*3/uL (2.3-7.9); NEUT % 61.8 % (47.0-73.0); PLATELET COUNT AUTOMATED 331 10*3/uL (130-400); RED BLOOD COUNT 3.55 10*6/uL (4.10-5.10); RED CELL DISTRI WIDTH 14.8 % (0-14.5); WHITE BLOOD COUNT 9.6 10*3/uL (4.8-10.8)
[2019-04-06 15:21] LABS: ALKALINE PHOSPHATASE 144 U/L (45-117); BUN 43 mg/dl (7-24); CHLORIDE 102 mmol/L (98-107); CREATININE 2.29 mg/dL (0.55-1.02); LIPASE 90 U/L (73-393); POTASSIUM 4.8 mmol/L (3.5-5.1); SGOT/AST 56 IU/L (3-35); SGPT/ALT 36 U/L (12-78); SODIUM 136 mmol/L (136-145); TOTAL PROTEIN 8.3 gm/dL (6.4-8.2)
[2019-04-06 15:24] LABS: TROPONIN I < 0.015 ng/ml (<0.045)
[2019-04-06 15:34] LABS: BILIRUBIN NEGATIVE (NEGATIVE); BLOOD 1+ (NEGATIVE); CLARITY SL CLOUDY (CLEAR); COLOR YELLOW (YELLOW); GLUCOSE NEGATIVE (NEGATIVE); KETONE NEGATIVE (NEGATIVE); LEUKO ESTERASE 2+ (NEGATIVE); NITRITE POSITIVE (NEGATIVE); PH 5.5 (5.0-9.0); SPECIFIC GRAVITY 1.015 (1.005-1.030); UROBILINOGEN 0.2 E.U./dl (0.2-1.0)
[2019-04-06 15:41] LABS: BACTERIA 3+; WBC 31-40 wbc/hpf (0-5)
[2019-04-06 16:42] LABS: ACT PARTIAL THROMBO TIME 77.4 SECONDS (20.0-32.1)
[2019-04-06 16:43] LABS: INTERNATIONAL NORM RATIO 9.3 (2.0-3.5)
[2019-04-06 17:02] VITALS: BP 105/57
[2019-04-06 17:41] VITALS: BP 121/41
--- NOTE | 2019-04-06 17:47 | NUR ---
LA 3.3 BATON TWIRLER JAMES NOTIFIED
[2019-04-06 18:23] VITALS: BP 122/40
[2019-04-06 19:52] VITALS: BP 122/70
--- NOTE | 2019-04-06 19:52 | NUR ---
A 83, admitted to 4E, under the services of PHI Bailey MD with a diagnosis of SUPRATHERAPEUTIC INR, NON HEALING RIGHT FOOT WOUND, SUPERFICIAL THROMBOPHLEBITIS, HYPOMAGNESEMIA, UTI, CKD. Chief complaint is UTI. Patient arrived via bed from ER. Monitor applied. Initial assessment completed. Vital signs taken and recorded. PHI BAILEY MD notified of admission to the unit. Orders received. See assessment for past medical history, medications and allergies. Patient and/or family oriented to unit. [facility] visitation policy reviewed. Clothing/patient valuable form completed. MOISÉS MATTHEWS
--- NOTE | 2019-04-06 20:50 | NUR ---
DR CONN NOTIFIED OF ELEVATED LACTIC ACID OF 3.5
[2019-04-07] VITALS: BP 111/48
[2019-04-07] MEDS ORDERED: DURAGESIC1 EACH TD (02:38)
[2019-04-07] MEDS ORDERED: Duragesic 25 M25 MCG TD (02:39)
[2019-04-07 06:05] LABS: CREATININE 2.26 mg/dL (0.55-1.02); PHOSPHOROUS 3.2 mg/dL (2.5-4.9); POTASSIUM 4.2 mmol/L (3.5-5.1)
[2019-04-07 06:13] LABS: BASO % 0.6 % (0.0-1.0); EOS # 0.3 10*3/uL (0.0-0.4); EOS % 3.8 % (1.0-4.0); HEMATOCRIT 26.3 % (37.0-47.0); HEMOGLOBIN 7.8 g/dl (12.0-16.0); LYMPH # 1.9 10*3/uL (1.3-4.4); LYMPH % 29.4 % (27.0-41.0); MEAN CELL VOLUME 89.5 fl (81.0-99.0); MEAN CORPUSCULAR HGB 26.5 pg (27.0-31.0); MEAN CORPUSCULAR HGB CONC 29.7 g/dl (33.0-37.0); MEAN PLATELET VOLUME 11.3 fl (9.6-12.3); MONO # 0.7 10*3/uL (0.1-1.0); MONO % 10.6 % (3.0-9.0); NEUT # 3.6 10*3/uL (2.3-7.9); PLATELET COUNT AUTOMATED 239 10*3/uL (130-400); RED BLOOD COUNT 2.94 10*6/uL (4.10-5.10); RED CELL DISTRI WIDTH 15.1 % (0-14.5); WHITE BLOOD COUNT 6.5 10*3/uL (4.8-10.8)
[2019-04-07 07:45] LABS: INTERNATIONAL NORM RATIO 8.1 (2.0-3.5)
--- NOTE | 2019-04-07 07:48 | NUR ---
NOTIFIED OF CRITICAL INR
[2019-04-07 08:00] VITALS: BP 100/50
--- NOTE | 2019-04-07 08:02 | NUR ---
ROMELIA GERBER [id number] Please refer to the physician's history and physical for past medical history, comorbid conditions, and allergies. Diagnosis: UTI,CHRONIC KIDNEY DISEASE,SUPERFICIAL Karthik Score: 17,AT RISK WOUND DESCRIPTIONS: Wound Number: 1 Location of the wound: right heel Type of wound: unstageable Thickness: Full Size: 2.0cm x 1.8cm x <0.1cm Tunneling: none Undermining: none Sinus Tract: none Presence of Exudate: none Amount: None Color: Brown, red Odor: None Periwound Skin Appearance: Normal Wound edges: approximated Pain (associated with wound): none at time of assessment How does patient state this happened? pt stated she had for a while Wound Number: 2 Location of the wound: left buttocks proximal Type of wound: DTI Size: 0.6cm x 0.9cm x <0.1 Tunneling: none Undermining: none Sinus Tract: none Presence of Exudate: none Amount: None Color: Purple, dark red Odor: None Periwound Skin Appearance: Normal Wound edges: closed Pain (associated with wound): tender to touch How does patient state this happened? pt stated she had this for awhile Wound Number: 3 Location of the wound: left buttocks distal Type of wound: stage 3 Thickness: Full Size: 0.1cm x 0.3cm x <0.1cm Tunneling: none Undermining: none Sinus Tract: none Presence of Exudate: none Amount: None Color: Yellow, brown Odor: None Periwound Skin Appearance: Erythema Wound edges: approximated Pain (associated with wound): tender to touch How does patient state this happened? pt stated she had for awhile Intact scab noted to left knee. No drainage noted. No redness surrounding the area. Surface the patient is resting on: Position Pro SKIN PREVENTION RECOMMENDATION: 1. Pressure redistribution support surface as appropriate 2. Elevate heels 3. Remove boots/TEDS every shift and reapply 4. Head of bed 30 degrees as tolerated 5. Assess nutrition and hydration 6. Manage moisture 7. Avoid the use of containment devices while in bed 8. Use absorptive products on surfaces limit layers of linens on bed 9. Turn and reposition every 1-2 hours in bed and every 1 hour in chair as tolerated 10. Weight shifts every 15 minutes while up in chair 11. Offloading with pillows or device to keep heels elevated off bed 12. Monitor skin at least every shift 13. Inspect under medical devices twice a day WOUND TREATMENT RECOMMENDATIONS: Heel raiser pro boots to bilateral feet while in bed. Wheelchair cushion when oob. Venous and arterial studies. Consult podiatry for possible debridement if studies allow and PT/INR is within range. Full thickness guidelines: Cleanse right heel with nss and apply sureprep around the wound therahoney to wound bed and cover with optifoam gentle. DTI guidelines: Cleanse left proximal buttocks with nss apply sureprep and cover with optifoam sacral gentle Stage 3 guidelines: Cleanse left buttocks distal with nss and apply sureprep around the wound therahoney to wound bed and cover with optifoam sacral gentle.
--- NOTE | 2019-04-07 09:00 | NUR ---
Knuckle Bender in to talk to patient. Patient states lives at home with her daughter and son. There are 6 steps in the home. Physician: Dr. Cory Mccabe [facility]acy: [facility] Home health services: she is unsure of whether she needs assistance at home Patient's level of ADLs: MINIMAL ASSIST Patient has working utilities: yes DME: walker Follow-up physician's appointment after d/c: she prefers to make her own follow up appt after discharge Does patient want to access PORTAL?: no Discharge plan discussed with patient. She ir currently living with her daughter. When she lives in her own home her son lives with her. She is independent in her ADLs and ambulates with a walker. Discussed home health care services and she is unsure of any home needs at this time. Discussed short term SNF and she refuses. When medically stable she will be discharged to home. NURYS FLORES
--- NOTE | 2019-04-07 09:38 | NUR ---
Dr. Tyler notified of wound care recommendations.
--- NOTE | 2019-04-07 10:20 | NUR ---
PHYSICAL THERAPY Patient evaluated on 4, full evaluation to follow. Continue with PT as per plan of care with fall, thrombophlebitis and acute debility precautions. Recommend SNF but patient refuses. Home with family assist prn and home health RN, PT and aides recommended as second choice. PAtient is moderate complexity via chart review, tests and evaluation: 08846. Thank you for this referral. Rena Fox,PT
[2019-04-07 12:00] VITALS: BP 117/82
--- NOTE | 2019-04-07 13:45 | NUR ---
Notified Dr. Mccabe patient would like a BSC for home.
[2019-04-07 16:00] VITALS: BP 141/51
--- NOTE | 2019-04-07 19:02 | NUR ---
PATIENT RESTING IN BED WATCHING TV AT THIS TIME. YAW RN IN TO DRESS BUTTOCK WOUND PER ORDERS. PATIENT ENCOURAGED TO TURN WHILE IN BED AND NOT LAY ON BACK AT ALL TIMES. VERBALIZES UNDERSTANDING. STATED SHE WOULD LAY ON HER LEFT SIDE FOR A WHILE. IV FLUIDS INFUSING INTO LEFT ARM. BED IN LOWEST POSITION WITH WHEELS LOCKED. BED ALARM ACTIVE. SIDE RAILS UP X2. CALL LIGHT IS WITHIN REACH. WILL CONTINUE TO MONITOR. ENCOURAGED TO USE CALL LIGHT FOR NEEDS.
[2019-04-07 20:00] VITALS: BP 120/94
--- NOTE | 2019-04-07 22:06 | NUR ---
DR FIERRO NOTIFIED PATIENTS DAUGHTER WAS IN TONIGHT AND WANTED TO VERIFY HOME MEDICATIONS. MILKA INFROMED RN THAT THE PATIENT DOES NOT TAKE AMITRIPTYLINE AT HOME BECAUSE IT CAUSES TREMORS. DR FIERRO STATED THAT SHE WOULD DISCONTINUE THIS MEDICATION.
[2019-04-08] VITALS: BP 118/51
[2019-04-08 06:44] LABS: BASO # 0.1 10*3/uL (0.0-0.1); BASO % 0.9 % (0.0-1.0); EOS # 0.3 10*3/uL (0.0-0.4); EOS % 3.7 % (1.0-4.0); HEMOGLOBIN 8.2 g/dl (12.0-16.0); LYMPH # 1.5 10*3/uL (1.3-4.4); MEAN CELL VOLUME 90.3 fl (81.0-99.0); MEAN CORPUSCULAR HGB 26.5 pg (27.0-31.0); MEAN CORPUSCULAR HGB CONC 29.3 g/dl (33.0-37.0); MONO # 0.8 10*3/uL (0.1-1.0); MONO % 11.7 % (3.0-9.0); NEUT # 4.2 10*3/uL (2.3-7.9); NEUT % 61.3 % (47.0-73.0); PLATELET COUNT AUTOMATED 235 10*3/uL (130-400); WHITE BLOOD COUNT 6.8 10*3/uL (4.8-10.8)
[2019-04-08 07:11] LABS: CREATININE 1.87 mg/dL (0.55-1.02); POTASSIUM 4.4 mmol/L (3.5-5.1)
[2019-04-08 07:39] LABS: INTERNATIONAL NORM RATIO 3.5 (2.0-3.5)
[2019-04-08 08:00] VITALS: BP 142/44
[2019-04-08 12:00] VITALS: BP 128/50
[2019-04-08 16:00] VITALS: BP 101/84
--- NOTE | 2019-04-08 19:27 | NUR ---
PATIENT IS AWAKE IN BED. ORIENTED TO SELF ONLY. WHEN ASKED WHERE SHE IS, PATIENT REPLIES, "JAZMINS LIZBETH." WHEN ASKED WHAT THE DATE IS, PATIENT REPLIES, "THE OF APRIL OR MAY." WHEN ASKED WHO THE PRESIDENT IS, PATIENT REPLIES, "I DON'T KNOW HIS NAME." SPEECH IS CLEAR. PATIENT ABLE TO FOLLOW COMMANDS. PATIENT DENIES ANY PAIN/SOB/GENERALIZED DISCOMFORT. NO S/S OF DISTRESS NOTED. WILL MONITOR. CALL LIGHT IN REACH. BED ALARM INTACT.
[2019-04-08 20:00] VITALS: BP 100/61
--- NOTE | 2019-04-08 21:10 | NUR ---
PATIENT CONTINUES TO SET OFF BED ALARM, GETTING UP. PATIENT ACCUSES RN OF BEING "SNEAKY" AND NOT TELLING HER ALL INFORMATION. RN OFFERED TO ANSWER ANY QUESTIONS PATIENT MAY HAVE. PATIENT REQUESTING TO TALK TO HER DAUGHTER, JUAQUIN. JUAQUIN CALLED BY THIS RN. EXPLAINED SITUATION TO HER AND TRANSFERRED DAUGHTER INTO PATIENT'S ROOM. PATIENT CURRENTLY ON PHONE SPEAKING WITH DAUGHTER.
--- NOTE | 2019-04-08 21:13 | NUR ---
NOTIFIED OF PATIENT'S INCREASED CONFUSION FOLLOWING INCREASED FENTANYL PATCH APPLIED TODAY. INSTRUCTED TO REMOVE/DISCONTINUE PATCH AND RESTART PO NORCO 5/325 Q4H PRN.
--- NOTE | 2019-04-08 21:23 | NUR ---
FENTANYL PATCH REMOVED AND DISPOSED OF PER POLICY. WITNESSED BY TWO RNs.
--- NOTE | 2019-04-08 21:55 | NUR ---
PATIENT'S DAUGHTER JUAQUIN HERE IN PATIENT'S ROOM. STATES SHE WORKS FOR AND CALLED HIS PERSONAL CELL PHONE REGARDING PATIENT'S CARE. DISCUSSED CHANGES TO D/C 50 MCG FENTANYL PATCH AND RESTART PO NORCO. PATIENT'S DAUGHTER ALREADY AWARE OF THIS. IN ROOM AT THIS TIME TO CALM PATIENT.
--- NOTE | 2019-04-08 21:59 | NUR ---
JUAQUIN HERE AND ON HER WAY OUT OF HOSPITAL. STATES SHE HAS CALMED PATIENT AND SHE IS SLEEPING AT THIS TIME. STATES SHE DOES NOT THINK PATIENT NEEDS TO BE MOVED AT THIS TIME. STATES RN CAN MOVE PT IF SHE STARTS TO BECOME CONFUSED AGAIN. RN STATES SHE WILL CALL JUAQUIN IN AM TO UPDATE HER ON STATUS.
--- NOTE | 2019-04-08 23:18 | NUR ---
PATIENT MOVED FROM ROOM 401 TO ROOM 422 AT THIS TIME TO BE CLOSER TO NURSING STATION. PATIENT KEEPS GETTING OUT OF BED & SETTING OFF BED ALARM. PATIENT STILL CONFUSED, STATING SHE WANTS TO "GO OUT IN THE LIVING ROOM WHERE SHE WAS." ATTEMPTED TO REORIENT PATIENT. PATIENT AGREES TO LAY BACK DOWN IN BED AND TO BE MOVED TO ANOTHER ROOM. ALL PERSONAL BELONGINGS GATHERED AND SENT WITH PATIENT. WILL MONITOR. BED LEFT LOCKED IN LOW POSITION, BED ALARM INTACT. CALL LIGHT WORKING & IN REACH.
[2019-04-09] VITALS: BP 129/48
--- NOTE | 2019-04-09 03:49 | NUR ---
PATIENT ASLEEP IN BED. RESPIRATIONS EASY. NO S/S OF DISTRESS NOTED.L WILL MONITOR. CALL LIGHT IN REACH. BED ALARM INTACT.
--- NOTE | 2019-04-09 06:38 | NUR ---
PATIENT'S DAUGHTER, JUAQUIN, CALLED AND UPDATED ON STATUS. AWARE OF MOVE TO ROOM 422.
[2019-04-09 08:00] VITALS: BP 142/68
[2019-04-09 08:21] LABS: INTERNATIONAL NORM RATIO 2.1 (2.0-3.5)
--- NOTE | 2019-04-09 11:58 | NUR ---
Discharge instructions reviewed with patient/family. Patient receptive and verbalizes understanding. Follow-up care arranged. Written instructions given to patient/family. COTY DAY
== END 2019-04-09 11:15 | disposition home or self-care (01) | DRG 689 ==
LOC: ED 13:59 → 4E 17:49 → EDHOLD 17:49 → 4E 19:39
PROVIDERS: Internal Medicine; Nurse Practitioner Family; Student in an Organized Health Care Education/Training Program; ADMIT Internal Medicine
DX: N39.0 Urinary tract infection, site not specified (principal); N17.0 Acute kidney failure with tubular necrosis; E87.2 Acidosis; E44.0 Moderate protein-calorie malnutrition; I13.0 Hypertensive heart and chronic kidney disease with heart failure and stage 1 through stage 4 chronic kidney disease, or unspecified chronic kidney disease; N18.4 Chronic kidney disease, stage 4 (severe); T45.515A Adverse effect of anticoagulants, initial encounter; I80.01 Phlebitis and thrombophlebitis of superficial vessels of right lower extremity; D64.9 Anemia, unspecified; R79.1 Abnormal coagulation profile; E83.42 Hypomagnesemia; R74.0 Nonspecific elevation of levels of transaminase and lactic acid dehydrogenase [LDH]; K21.9 Gastro-esophageal reflux disease without esophagitis; E78.5 Hyperlipidemia, unspecified; F32.9 Major depressive disorder, single episode, unspecified; M81.0 Age-related osteoporosis without current pathological fracture; E11.22 Type 2 diabetes mellitus with diabetic chronic kidney disease; E03.9 Hypothyroidism, unspecified; E11.51 Type 2 diabetes mellitus with diabetic peripheral angiopathy without gangrene; I50.9 Heart failure, unspecified; S91.302A Unspecified open wound, left foot, initial encounter; M19.90 Unspecified osteoarthritis, unspecified site; I35.0 Nonrheumatic aortic (valve) stenosis; E11.40 Type 2 diabetes mellitus with diabetic neuropathy, unspecified; B96.20 Unspecified Escherichia coli [E. coli] as the cause of diseases classified elsewhere; S90.31XA Contusion of right foot, initial encounter; X58.XXXA Exposure to other specified factors, initial encounter; Y93.89 Activity, other specified; Y99.8 Other external cause status; Z88.1 Allergy status to other antibiotic agents; Z88.8 Allergy status to other drugs, medicaments and biological substances; Z91.09 Other allergy status, other than to drugs and biological substances; Z87.440 Personal history of urinary (tract) infections; Z86.14 Personal history of Methicillin resistant Staphylococcus aureus infection; Z90.49 Acquired absence of other specified parts of digestive tract; Z95.0 Presence of cardiac pacemaker; Z82.49 Family history of ischemic heart disease and other diseases of the circulatory system; Z82.3 Family history of stroke; Z83.3 Family history of diabetes mellitus; Z79.899 Other long term (current) drug therapy; Y92.89 Other specified places as the place of occurrence of the external cause; Z95.2 Presence of prosthetic heart valve; Z68.32 Body mass index [BMI] 32.0-32.9, adult

== ENCOUNTER → 2019-05-09 | Outpatient (CLI) | payer MEDICARE ==
[~2019-05-09] MED LIST changes: +DURAGESIC1 EACH TD; +Duragesic 25 M25 MCG TD
== END | disposition home or self-care (01) ==
LOC: WOUNDCARE 00:16
DX: E11.621 Type 2 diabetes mellitus with foot ulcer (principal); L89.610 Pressure ulcer of right heel, unstageable; L97.412 Non-pressure chronic ulcer of right heel and midfoot with fat layer exposed; L84 Corns and callosities; E11.622 Type 2 diabetes mellitus with other skin ulcer; L89.150 Pressure ulcer of sacral region, unstageable; L98.492 Non-pressure chronic ulcer of skin of other sites with fat layer exposed; E11.40 Type 2 diabetes mellitus with diabetic neuropathy, unspecified; E11.51 Type 2 diabetes mellitus with diabetic peripheral angiopathy without gangrene; I10 Essential (primary) hypertension; N28.9 Disorder of kidney and ureter, unspecified; E78.5 Hyperlipidemia, unspecified; K21.9 Gastro-esophageal reflux disease without esophagitis; E03.9 Hypothyroidism, unspecified; M19.90 Unspecified osteoarthritis, unspecified site; M81.0 Age-related osteoporosis without current pathological fracture; F32.9 Major depressive disorder, single episode, unspecified; Z95.810 Presence of automatic (implantable) cardiac defibrillator; Z79.01 Long term (current) use of anticoagulants

== ENCOUNTER → 2019-05-16 | Outpatient (CLI) | payer MEDICARE | END | disposition home or self-care (01) | LOC: WOUNDCARE 00:12 | DX: E11.622 Type 2 diabetes mellitus with other skin ulcer (principal); L89.153 Pressure ulcer of sacral region, stage 3; L98.492 Non-pressure chronic ulcer of skin of other sites with fat layer exposed; E11.621 Type 2 diabetes mellitus with foot ulcer; L89.613 Pressure ulcer of right heel, stage 3; L97.411 Non-pressure chronic ulcer of right heel and midfoot limited to breakdown of skin; E11.40 Type 2 diabetes mellitus with diabetic neuropathy, unspecified; K21.9 Gastro-esophageal reflux disease without esophagitis; E78.5 Hyperlipidemia, unspecified; I10 Essential (primary) hypertension; E03.9 Hypothyroidism, unspecified; E46 Unspecified protein-calorie malnutrition; M19.90 Unspecified osteoarthritis, unspecified site; M81.0 Age-related osteoporosis without current pathological fracture; E11.51 Type 2 diabetes mellitus with diabetic peripheral angiopathy without gangrene; E53.8 Deficiency of other specified B group vitamins; F32.9 Major depressive disorder, single episode, unspecified; Z79.01 Long term (current) use of anticoagulants ==

== ENCOUNTER 2020-01-21 16:14 | Inpatient (IN) | payer MEDICARE ==
[~2020-01-21] VITALS: Ht 152.4 cm; Wt 74.0 kg
[~2020-01-21 16:14] MED LIST changes: +COUMADIN2 MG PO; +LEVOTHYROXINE175 MCG PO; +MAGNESIUM400 M1 PO
[2020-01-21 16:32] VITALS: BP 151/37
[2020-01-21 17:01] LABS: BASO # 0.1 10*3/uL (0.0-0.1); BASO % 0.9 % (0.0-1.0); EOS # 0.4 10*3/uL (0.0-0.4); HEMOGLOBIN 8.2 g/dl (12.0-16.0); LYMPH # 2.9 10*3/uL (1.3-4.4); LYMPH % 28.1 % (27.0-41.0); MEAN CELL VOLUME 87.2 fl (81.0-99.0); MEAN CORPUSCULAR HGB 25.5 pg (27.0-31.0); MEAN CORPUSCULAR HGB CONC 29.3 g/dl (33.0-37.0); MEAN PLATELET VOLUME 11.5 fl (9.6-12.3); MONO # 1.2 10*3/uL (0.1-1.0); MONO % 11.8 % (3.0-9.0); NEUT # 5.6 10*3/uL (2.3-7.9); NEUT % 54.7 % (47.0-73.0); PLATELET COUNT AUTOMATED 256 10*3/uL (130-400); RED BLOOD COUNT 3.21 10*6/uL (4.10-5.10); RED CELL DISTRI WIDTH 18.3 % (0-14.5); WHITE BLOOD COUNT 10.3 10*3/uL (4.8-10.8)
[2020-01-21 17:12] LABS: ACT PARTIAL THROMBO TIME 35.1 SECONDS (20.0-32.1); INTERNATIONAL NORM RATIO 1.6 (2.0-3.5)
[2020-01-21 17:19] LABS: ALBUMIN 2.5 gm/dl (3.1-4.5); ALKALINE PHOSPHATASE 154 U/L (45-117); BUN 27 mg/dl (7-24); CHLORIDE 104 mmol/L (98-107); CPK 30 U/L (26-192); CREATININE 2.25 mg/dL (0.55-1.02); POTASSIUM 4.6 mmol/L (3.5-5.1); SGOT/AST 64 IU/L (3-35); SGPT/ALT 24 U/L (12-78); SODIUM 140 mmol/L (136-145); TOTAL PROTEIN 8.4 gm/dL (6.4-8.2)
[2020-01-21 17:21] LABS: TROPONIN I < 0.015 ng/ml (<0.045)
[2020-01-21 17:26] LABS: BILIRUBIN NEGATIVE (NEGATIVE); BLOOD NEGATIVE (NEGATIVE); CLARITY CLEAR (CLEAR); COLOR YELLOW (YELLOW); GLUCOSE NEGATIVE (NEGATIVE); KETONE NEGATIVE (NEGATIVE); LEUKO ESTERASE NEGATIVE (NEGATIVE); NITRITE NEGATIVE (NEGATIVE); UROBILINOGEN 0.2 E.U./dl (0.2-1.0)
[2020-01-21 17:28] LABS: EPITHELIAL CELLS 0-2
[2020-01-21 18:34] VITALS: BP 150/45
[2020-01-21 20:45] VITALS: BP 136/74
[2020-01-21] MEDS ORDERED: METOPROLOL25 MG PO (20:55)
[2020-01-21] MEDS ORDERED: LEVOTHYROXINE150 MCG PO (20:56)
[2020-01-21] MEDS ORDERED: ARICEPT5 M1 PO (20:57)
[2020-01-21] MEDS ORDERED: ZOFRAN4 MG PO (20:59)
[2020-01-22] VITALS: BP 144/50
[2020-01-22 06:25] LABS: BASO # 0.1 10*3/uL (0.0-0.1); BASO % 1.1 % (0.0-1.0); EOS # 0.5 10*3/uL (0.0-0.4); EOS % 5.3 % (1.0-4.0); HEMATOCRIT 26.2 % (37.0-47.0); HEMOGLOBIN 7.8 g/dl (12.0-16.0); LYMPH # 2.8 10*3/uL (1.3-4.4); LYMPH % 32.1 % (27.0-41.0); MEAN CELL VOLUME 86.8 fl (81.0-99.0); MEAN CORPUSCULAR HGB 25.8 pg (27.0-31.0); MEAN CORPUSCULAR HGB CONC 29.8 g/dl (33.0-37.0); MONO # 1.2 10*3/uL (0.1-1.0); MONO % 13.7 % (3.0-9.0); NEUT # 4.2 10*3/uL (2.3-7.9); NEUT % 47.5 % (47.0-73.0); PLATELET COUNT AUTOMATED 232 10*3/uL (130-400); RED BLOOD COUNT 3.02 10*6/uL (4.10-5.10); RED CELL DISTRI WIDTH 18.7 % (0-14.5); WHITE BLOOD COUNT 8.8 10*3/uL (4.8-10.8)
[2020-01-22 06:40] LABS: ALBUMIN 2.3 gm/dl (3.1-4.5); CREATININE 2.16 mg/dL (0.55-1.02); POTASSIUM 4.5 mmol/L (3.5-5.1); TOTAL PROTEIN 7.8 gm/dL (6.4-8.2)
[2020-01-22 07:00] LABS: INTERNATIONAL NORM RATIO 1.6 (2.0-3.5)
[2020-01-22 08:00] VITALS: BP 117/49
[2020-01-22 12:00] VITALS: BP 121/49
[2020-01-22 16:00] VITALS: BP 142/53
[2020-01-22 19:17] LABS: BILIRUBIN NEGATIVE (NEGATIVE); BLOOD 3+ (NEGATIVE); CLARITY CLEAR (CLEAR); COLOR YELLOW (YELLOW); GLUCOSE NEGATIVE (NEGATIVE); KETONE NEGATIVE (NEGATIVE); LEUKO ESTERASE NEGATIVE (NEGATIVE); NITRITE NEGATIVE (NEGATIVE); PH 7.5 (5.0-9.0); UROBILINOGEN 0.2 E.U./dl (0.2-1.0)
[2020-01-22 19:19] LABS: RBC 41-50 rbc/hpf (0-2); WBC 0-2 wbc/hpf (0-5)
[2020-01-22 20:00] VITALS: BP 147/45
[2020-01-23] VITALS (10 sets, daily range): BP systolic 110–155; BP diastolic 43–71
[2020-01-23 06:52] LABS: BASO # 0.1 10*3/uL (0.0-0.1); BASO % 1.3 % (0.0-1.0); EOS # 0.5 10*3/uL (0.0-0.4); EOS % 5.8 % (1.0-4.0); HEMATOCRIT 27.7 % (37.0-47.0); LYMPH # 1.8 10*3/uL (1.3-4.4); LYMPH % 22.8 % (27.0-41.0); MEAN CELL VOLUME 87.4 fl (81.0-99.0); MEAN CORPUSCULAR HGB 25.2 pg (27.0-31.0); MEAN CORPUSCULAR HGB CONC 28.9 g/dl (33.0-37.0); MEAN PLATELET VOLUME 12.1 fl (9.6-12.3); MONO # 1.1 10*3/uL (0.1-1.0); MONO % 13.6 % (3.0-9.0); NEUT # 4.5 10*3/uL (2.3-7.9); NEUT % 56.4 % (47.0-73.0); PLATELET COUNT AUTOMATED 225 10*3/uL (130-400); RED BLOOD COUNT 3.17 10*6/uL (4.10-5.10); RED CELL DISTRI WIDTH 18.6 % (0-14.5)
[2020-01-23 07:07] LABS: CREATININE 2.17 mg/dL (0.55-1.02); POTASSIUM 4.1 mmol/L (3.5-5.1)
[2020-01-23 07:12] LABS: INTERNATIONAL NORM RATIO 2.2 (2.0-3.5)
[2020-01-24] VITALS: BP 135/50
[2020-01-24 03:44] LABS: BILIRUBIN NEGATIVE (NEGATIVE); BLOOD 1+ (NEGATIVE); CLARITY SL CLOUDY (CLEAR); COLOR YELLOW (YELLOW); GLUCOSE NEGATIVE (NEGATIVE); KETONE NEGATIVE (NEGATIVE); LEUKO ESTERASE 2+ (NEGATIVE); NITRITE NEGATIVE (NEGATIVE); UROBILINOGEN 0.2 E.U./dl (0.2-1.0)
[2020-01-24 03:57] LABS: EPITHELIAL CELLS 30-35; WBC 31-40 wbc/hpf (0-5)
[2020-01-24 03:58] LABS: BACTERIA 1+
[2020-01-24 05:53] LABS: BASO # 0.1 10*3/uL (0.0-0.1); BASO % 1.2 % (0.0-1.0); EOS # 0.5 10*3/uL (0.0-0.4); EOS % 5.8 % (1.0-4.0); HEMATOCRIT 31.4 % (37.0-47.0); HEMOGLOBIN 9.3 g/dl (12.0-16.0); LYMPH # 2.2 10*3/uL (1.3-4.4); LYMPH % 25.5 % (27.0-41.0); MEAN CELL VOLUME 85.8 fl (81.0-99.0); MEAN CORPUSCULAR HGB 25.4 pg (27.0-31.0); MEAN CORPUSCULAR HGB CONC 29.6 g/dl (33.0-37.0); MONO # 1.2 10*3/uL (0.1-1.0); MONO % 13.6 % (3.0-9.0); NEUT # 4.6 10*3/uL (2.3-7.9); NEUT % 53.6 % (47.0-73.0); PLATELET COUNT AUTOMATED 202 10*3/uL (130-400); RED BLOOD COUNT 3.66 10*6/uL (4.10-5.10); RED CELL DISTRI WIDTH 18.7 % (0-14.5); WHITE BLOOD COUNT 8.6 10*3/uL (4.8-10.8)
[2020-01-24 06:05] LABS: ALBUMIN 2.2 gm/dl (3.1-4.5); CREATININE 1.98 mg/dL (0.55-1.02); POTASSIUM 4.6 mmol/L (3.5-5.1)
[2020-01-24 06:14] LABS: INTERNATIONAL NORM RATIO 2.9 (2.0-3.5)
[2020-01-24 08:00] VITALS: BP 124/75
[2020-01-24 12:00] VITALS: BP 127/62
[2020-01-24 16:00] VITALS: BP 113/83
[2020-01-24 20:00] VITALS: BP 120/58
[2020-01-25] VITALS: BP 118/66
[2020-01-25 06:21] LABS: BASO # 0.1 10*3/uL (0.0-0.1); BASO % 1.1 % (0.0-1.0); EOS # 0.5 10*3/uL (0.0-0.4); EOS % 5.2 % (1.0-4.0); HEMATOCRIT 31.7 % (37.0-47.0); HEMOGLOBIN 9.5 g/dl (12.0-16.0); LYMPH # 2.7 10*3/uL (1.3-4.4); LYMPH % 27.4 % (27.0-41.0); MEAN CELL VOLUME 86.8 fl (81.0-99.0); MEAN PLATELET VOLUME 11.7 fl (9.6-12.3); MONO # 1.1 10*3/uL (0.1-1.0); MONO % 11.3 % (3.0-9.0); NEUT # 5.4 10*3/uL (2.3-7.9); NEUT % 54.7 % (47.0-73.0); PLATELET COUNT AUTOMATED 192 10*3/uL (130-400); RED BLOOD COUNT 3.65 10*6/uL (4.10-5.10); RED CELL DISTRI WIDTH 18.8 % (0-14.5); WHITE BLOOD COUNT 9.9 10*3/uL (4.8-10.8)
[2020-01-25 06:30] LABS: INTERNATIONAL NORM RATIO 3.3 (2.0-3.5)
[2020-01-25 06:42] LABS: CREATININE 1.79 mg/dL (0.55-1.02)
[2020-01-25 06:43] LABS: ALBUMIN 2.3 gm/dl (3.1-4.5); POTASSIUM 4.5 mmol/L (3.5-5.1)
[2020-01-25 08:00] VITALS: BP 137/66
[2020-01-25 12:00] VITALS: BP 115/55
[2020-01-25 16:00] VITALS: BP 112/59
[2020-01-25 20:00] VITALS: BP 113/57
[2020-01-26] VITALS: BP 118/77
[2020-01-26 06:22] LABS: BASO # 0.1 10*3/uL (0.0-0.1); BASO % 0.9 % (0.0-1.0); EOS # 0.6 10*3/uL (0.0-0.4); EOS % 5.8 % (1.0-4.0); HEMATOCRIT 31.6 % (37.0-47.0); HEMOGLOBIN 9.4 g/dl (12.0-16.0); LYMPH # 2.9 10*3/uL (1.3-4.4); MEAN CELL VOLUME 89.8 fl (81.0-99.0); MEAN CORPUSCULAR HGB 26.7 pg (27.0-31.0); MEAN CORPUSCULAR HGB CONC 29.7 g/dl (33.0-37.0); MEAN PLATELET VOLUME 11.7 fl (9.6-12.3); MONO # 1.2 10*3/uL (0.1-1.0); MONO % 12.1 % (3.0-9.0); NEUT # 5.4 10*3/uL (2.3-7.9); NEUT % 52.8 % (47.0-73.0); PLATELET COUNT AUTOMATED 204 10*3/uL (130-400); RED BLOOD COUNT 3.52 10*6/uL (4.10-5.10); RED CELL DISTRI WIDTH 19.4 % (0-14.5); WHITE BLOOD COUNT 10.2 10*3/uL (4.8-10.8)
[2020-01-26 06:34] LABS: CREATININE 1.98 mg/dL (0.55-1.02)
[2020-01-26 06:35] LABS: POTASSIUM 5.6 mmol/L (3.5-5.1)
[2020-01-26 08:00] VITALS: BP 132/65
[2020-01-26 12:00] VITALS: BP 96/79
[2020-01-26 16:00] VITALS: BP 106/57
[2020-01-26 20:00] VITALS: BP 99/61
[2020-01-27] VITALS: BP 113/60
[2020-01-27 07:07] LABS: BASO # 0.1 10*3/uL (0.0-0.1); EOS # 0.5 10*3/uL (0.0-0.4); HEMOGLOBIN 8.5 g/dl (12.0-16.0); LYMPH # 2.1 10*3/uL (1.3-4.4); LYMPH % 23.4 % (27.0-41.0); MEAN CELL VOLUME 88.1 fl (81.0-99.0); MEAN CORPUSCULAR HGB 25.8 pg (27.0-31.0); MEAN CORPUSCULAR HGB CONC 29.3 g/dl (33.0-37.0); MONO # 1.1 10*3/uL (0.1-1.0); MONO % 12.7 % (3.0-9.0); NEUT % 56.6 % (47.0-73.0); PLATELET COUNT AUTOMATED 188 10*3/uL (130-400); RED BLOOD COUNT 3.29 10*6/uL (4.10-5.10); RED CELL DISTRI WIDTH 19.4 % (0-14.5); WHITE BLOOD COUNT 8.8 10*3/uL (4.8-10.8)
[2020-01-27 07:29] LABS: CREATININE 2.26 mg/dL (0.55-1.02); POTASSIUM 5.1 mmol/L (3.5-5.1)
[2020-01-27 08:00] VITALS: BP 110/50
[2020-01-27 12:00] VITALS: BP 118/52
[2020-01-27 16:00] VITALS: BP 105/50
[2020-01-27 20:00] VITALS: BP 105/39
[2020-01-28] VITALS: BP 99/46
[2020-01-28 06:26] LABS: BASO # 0.1 10*3/uL (0.0-0.1); BASO % 1.1 % (0.0-1.0); EOS # 0.5 10*3/uL (0.0-0.4); EOS % 6.3 % (1.0-4.0); HEMATOCRIT 28.4 % (37.0-47.0); HEMOGLOBIN 8.4 g/dl (12.0-16.0); LYMPH # 2.2 10*3/uL (1.3-4.4); LYMPH % 26.1 % (27.0-41.0); MEAN CELL VOLUME 89.3 fl (81.0-99.0); MEAN CORPUSCULAR HGB 26.4 pg (27.0-31.0); MEAN CORPUSCULAR HGB CONC 29.6 g/dl (33.0-37.0); MEAN PLATELET VOLUME 12.1 fl (9.6-12.3); MONO # 1.1 10*3/uL (0.1-1.0); MONO % 13.3 % (3.0-9.0); NEUT # 4.5 10*3/uL (2.3-7.9); NEUT % 52.7 % (47.0-73.0); PLATELET COUNT AUTOMATED 190 10*3/uL (130-400); RED BLOOD COUNT 3.18 10*6/uL (4.10-5.10); RED CELL DISTRI WIDTH 19.6 % (0-14.5); WHITE BLOOD COUNT 8.6 10*3/uL (4.8-10.8)
[2020-01-28 06:35] LABS: INTERNATIONAL NORM RATIO 2.8 (2.0-3.5)
[2020-01-28 06:54] LABS: ALBUMIN 2.5 gm/dl (3.1-4.5); CREATININE 2.36 mg/dL (0.55-1.02); POTASSIUM 5.3 mmol/L (3.5-5.1); TOTAL PROTEIN 7.6 gm/dL (6.4-8.2)
[2020-01-28 08:00] VITALS: BP 117/52
[2020-01-28 12:00] VITALS: BP 120/63
[2020-01-28 16:00] VITALS: BP 111/96
[2020-01-28 20:00] VITALS: BP 116/48
[2020-01-29] VITALS: BP 113/56
[2020-01-29 07:03] LABS: INTERNATIONAL NORM RATIO 3.5 (2.0-3.5)
[2020-01-29 07:08] LABS: CREATININE 2.38 mg/dL (0.55-1.02); POTASSIUM 5.4 mmol/L (3.5-5.1)
[2020-01-29 08:00] VITALS: BP 118/62
[2020-01-29 12:00] VITALS: BP 102/60
[2020-01-29 16:00] VITALS: BP 126/67
[2020-01-29 20:00] VITALS: BP 112/58
[2020-01-30] VITALS: BP 122/49
[2020-01-30 06:39] LABS: CREATININE 2.49 mg/dL (0.55-1.02)
[2020-01-30 08:00] VITALS: BP 118/79
[2020-01-30 12:00] VITALS: BP 99/65
[2020-01-30 16:00] VITALS: BP 99/78
[2020-01-30 20:00] VITALS: BP 118/59
[2020-01-31] VITALS: BP 101/42
[2020-01-31 07:01] LABS: BASO # 0.1 10*3/uL (0.0-0.1); BASO % 1.3 % (0.0-1.0); EOS # 0.6 10*3/uL (0.0-0.4); EOS % 5.7 % (1.0-4.0); HEMATOCRIT 31.4 % (37.0-47.0); HEMOGLOBIN 9.2 g/dl (12.0-16.0); LYMPH # 2.4 10*3/uL (1.3-4.4); LYMPH % 22.8 % (27.0-41.0); MEAN CELL VOLUME 89.5 fl (81.0-99.0); MEAN CORPUSCULAR HGB 26.2 pg (27.0-31.0); MEAN CORPUSCULAR HGB CONC 29.3 g/dl (33.0-37.0); MEAN PLATELET VOLUME 12.1 fl (9.6-12.3); MONO # 1.3 10*3/uL (0.1-1.0); MONO % 12.3 % (3.0-9.0); NEUT # 6.1 10*3/uL (2.3-7.9); NEUT % 57.6 % (47.0-73.0); PLATELET COUNT AUTOMATED 238 10*3/uL (130-400); RED BLOOD COUNT 3.51 10*6/uL (4.10-5.10); RED CELL DISTRI WIDTH 20.9 % (0-14.5); WHITE BLOOD COUNT 10.7 10*3/uL (4.8-10.8)
[2020-01-31 07:40] LABS: ALBUMIN 2.5 gm/dl (3.1-4.5); POTASSIUM 5.1 mmol/L (3.5-5.1)
[2020-01-31 07:45] LABS: CREATININE 2.65 mg/dL (0.55-1.02); TOTAL PROTEIN 7.5 gm/dL (6.4-8.2)
[2020-01-31 08:00] VITALS: BP 133/66
[2020-01-31 08:16] LABS: INTERNATIONAL NORM RATIO 3.6 (2.0-3.5)
[2020-01-31 12:00] VITALS: BP 108/88
[2020-01-31 14:30] LABS: BACTERIA 2+; EPITHELIAL CELLS 15-20; URINE CHLORIDE, RANDOM < 10 mmol/L
[2020-01-31 16:00] VITALS: BP 114/53
[2020-01-31 20:00] VITALS: BP 110/52
[2020-02-01] VITALS: BP 99/49
[2020-02-01 06:25] LABS: INTERNATIONAL NORM RATIO 3.3 (2.0-3.5)
[2020-02-01 06:49] LABS: ALBUMIN 2.3 gm/dl (3.1-4.5); CREATININE 2.86 mg/dL (0.55-1.02); PHOSPHOROUS 4.2 mg/dL (2.5-4.9); POTASSIUM 4.9 mmol/L (3.5-5.1); TOTAL PROTEIN 7.1 gm/dL (6.4-8.2)
[2020-02-01 12:00] VITALS: BP 112/50
[2020-02-01 16:00] VITALS: BP 126/54
[2020-02-01 20:00] VITALS: BP 92/40
[2020-02-01 22:45] VITALS: BP 108/52
[2020-02-02 07:35] LABS: INTERNATIONAL NORM RATIO 2.6 (2.0-3.5)
[2020-02-02 08:00] VITALS: BP 116/48
[2020-02-02 12:00] VITALS: BP 112/56
[2020-02-02] MEDS ORDERED: ZYVOX600 MG PO (12:58)
[2020-02-02] MEDS ORDERED: REMEDY CALAZIME4 GM T (12:59)
[2020-02-02] MEDS ORDERED: LACTULOSE10 GM/153 PO (13:10)
[2020-02-02 13:19] LABS: BILIRUBIN NEGATIVE (NEGATIVE); BLOOD 3+ (NEGATIVE); CLARITY CLOUDY (CLEAR); COLOR YELLOW (YELLOW); GLUCOSE NEGATIVE (NEGATIVE); KETONE NEGATIVE (NEGATIVE)
[2020-02-02 13:20] LABS: BACTERIA 3+; LEUKO ESTERASE 1+ (NEGATIVE); NITRITE NEGATIVE (NEGATIVE); RBC TNTC rbc/hpf (0-2); UROBILINOGEN 0.2 E.U./dl (0.2-1.0)
[2020-02-02 14:03] LABS: BASO # 0.1 10*3/uL (0.0-0.1); EOS # 0.4 10*3/uL (0.0-0.4); EOS % 4.1 % (1.0-4.0); HEMATOCRIT 30.8 % (37.0-47.0); HEMOGLOBIN 9.5 g/dl (12.0-16.0); LYMPH # 1.9 10*3/uL (1.3-4.4); LYMPH % 20.5 % (27.0-41.0); MEAN CELL VOLUME 89.3 fl (81.0-99.0); MEAN CORPUSCULAR HGB 27.5 pg (27.0-31.0); MEAN CORPUSCULAR HGB CONC 30.8 g/dl (33.0-37.0); MEAN PLATELET VOLUME 10.6 fl (9.6-12.3); MONO % 11.3 % (3.0-9.0); NEUT # 5.7 10*3/uL (2.3-7.9); NEUT % 62.7 % (47.0-73.0); PLATELET COUNT AUTOMATED 200 10*3/uL (130-400); RED BLOOD COUNT 3.45 10*6/uL (4.10-5.10); RED CELL DISTRI WIDTH 21.2 % (0-14.5); WHITE BLOOD COUNT 9.1 10*3/uL (4.8-10.8)
[2020-02-02 14:21] LABS: CREATININE 2.71 mg/dL (0.55-1.02); POTASSIUM 5.4 mmol/L (3.5-5.1)
[2020-02-02 16:00] VITALS: BP 125/46
[2020-02-02 20:00] VITALS: BP 128/49
[2020-02-03] VITALS: BP 123/52
[2020-02-03 06:36] LABS: INTERNATIONAL NORM RATIO 2.4 (2.0-3.5)
[2020-02-03 06:47] LABS: POTASSIUM 5.1 mmol/L (3.5-5.1)
[2020-02-03 06:49] LABS: CREATININE 2.58 mg/dL (0.55-1.02)
[2020-02-03 08:00] VITALS: BP 112/40
[2020-02-03 09:45] VITALS: BP 118/54
[2020-02-03 12:00] VITALS: BP 122/50
[2020-02-03 16:00] VITALS: BP 100/48
[2020-02-03 20:00] VITALS: BP 112/47
[2020-02-04] VITALS: BP 125/52
[2020-02-04 06:25] LABS: INTERNATIONAL NORM RATIO 2.2 (2.0-3.5)
[2020-02-04 06:29] LABS: CREATININE 2.65 mg/dL (0.55-1.02)
[2020-02-04 08:00] VITALS: BP 120/57
[2020-02-04 12:00] VITALS: BP 120/57
[2020-02-04 16:00] VITALS: BP 108/66
[2020-02-04 20:00] VITALS: BP 114/49
[2020-02-05] VITALS: BP 118/43
[2020-02-05 08:00] VITALS: BP 111/46
[2020-02-05 10:36] LABS: BASO # 0.1 10*3/uL (0.0-0.1); BASO % 1.2 % (0.0-1.0); EOS # 0.3 10*3/uL (0.0-0.4); EOS % 3.3 % (1.0-4.0); HEMATOCRIT 30.1 % (37.0-47.0); LYMPH # 1.9 10*3/uL (1.3-4.4); LYMPH % 22.7 % (27.0-41.0); MEAN CELL VOLUME 90.1 fl (81.0-99.0); MEAN CORPUSCULAR HGB 26.9 pg (27.0-31.0); MEAN CORPUSCULAR HGB CONC 29.9 g/dl (33.0-37.0); MEAN PLATELET VOLUME 11.3 fl (9.6-12.3); MONO # 0.8 10*3/uL (0.1-1.0); NEUT # 5.4 10*3/uL (2.3-7.9); NEUT % 63.4 % (47.0-73.0); PLATELET COUNT AUTOMATED 168 10*3/uL (130-400); RED BLOOD COUNT 3.34 10*6/uL (4.10-5.10); RED CELL DISTRI WIDTH 21.7 % (0-14.5); WHITE BLOOD COUNT 8.5 10*3/uL (4.8-10.8)
[2020-02-05 10:45] LABS: INTERNATIONAL NORM RATIO 2.3 (2.0-3.5)
[2020-02-05 11:05] LABS: CREATININE 2.6 mg/dL (0.55-1.02); POTASSIUM 4.7 mmol/L (3.5-5.1)
[2020-02-05 12:00] VITALS: BP 121/50
[2020-02-05 16:00] VITALS: BP 118/51
[2020-02-05 20:00] VITALS: BP 136/65
[2020-02-06] VITALS: BP 140/52
[2020-02-06 07:38] LABS: CREATININE 2.42 mg/dL (0.55-1.02); POTASSIUM 4.6 mmol/L (3.5-5.1)
[2020-02-06 07:39] LABS: INTERNATIONAL NORM RATIO 2.2 (2.0-3.5)
[2020-02-06 08:00] VITALS: BP 116/50
[2020-02-06 12:00] VITALS: BP 101/50
[2020-02-06 16:00] VITALS: BP 115/56
[2020-02-06 20:00] VITALS: BP 146/57
[2020-02-07] VITALS: BP 124/58
[2020-02-07 06:41] LABS: INTERNATIONAL NORM RATIO 1.8 (2.0-3.5)
[2020-02-07 06:45] LABS: CREATININE 2.58 mg/dL (0.55-1.02); POTASSIUM 5.3 mmol/L (3.5-5.1)
[2020-02-07 08:00] VITALS: BP 135/50
[2020-02-07 12:00] VITALS: BP 129/60
[2020-02-07 16:00] VITALS: BP 98/58
[2020-02-07] MEDS ORDERED: VISTARIL25 MG PO (17:53)
[2020-02-07] MEDS ORDERED: ZYPREXA5 M1 PO (17:54)
== END 2020-02-07 17:34 | disposition home health service (06) | DRG 441 ==
LOC: ED 16:14 → EDHOLD 18:35 → 5E 18:35 → 4E 02-04 19:22
PROVIDERS: Emergency Medicine; Hospitalist; Internal Medicine; Internal Medicine Nephrology; ADMIT Internal Medicine
DX: K72.90 Hepatic failure, unspecified without coma (principal); G93.41 Metabolic encephalopathy; N17.0 Acute kidney failure with tubular necrosis; I13.2 Hypertensive heart and chronic kidney disease with heart failure and with stage 5 chronic kidney disease, or end stage renal disease; Z16.21 Resistance to vancomycin; N04.9 Nephrotic syndrome with unspecified morphologic changes; R18.8 Other ascites; E44.0 Moderate protein-calorie malnutrition; J90 Pleural effusion, not elsewhere classified; E72.20 Disorder of urea cycle metabolism, unspecified; N39.0 Urinary tract infection, site not specified; N18.5 Chronic kidney disease, stage 5; F33.2 Major depressive disorder, recurrent severe without psychotic features; L03.116 Cellulitis of left lower limb; I50.811 Acute right heart failure; K74.60 Unspecified cirrhosis of liver; K21.9 Gastro-esophageal reflux disease without esophagitis; N39.3 Stress incontinence (female) (male); E11.22 Type 2 diabetes mellitus with diabetic chronic kidney disease; E03.9 Hypothyroidism, unspecified; M19.91 Primary osteoarthritis, unspecified site; A49.1 Streptococcal infection, unspecified site; E11.51 Type 2 diabetes mellitus with diabetic peripheral angiopathy without gangrene; E87.5 Hyperkalemia; K22.2 Esophageal obstruction; E53.8 Deficiency of other specified B group vitamins; E11.40 Type 2 diabetes mellitus with diabetic neuropathy, unspecified; Z66 Do not resuscitate; L30.4 Erythema intertrigo; R35.0 Frequency of micturition; F41.9 Anxiety disorder, unspecified; D64.9 Anemia, unspecified; E88.09 Other disorders of plasma-protein metabolism, not elsewhere classified; Z51.5 Encounter for palliative care; I25.10 Atherosclerotic heart disease of native coronary artery without angina pectoris; Z79.899 Other long term (current) drug therapy; Z95.0 Presence of cardiac pacemaker; Z88.1 Allergy status to other antibiotic agents; Z88.8 Allergy status to other drugs, medicaments and biological substances; Z91.048 Other nonmedicinal substance allergy status; Z82.49 Family history of ischemic heart disease and other diseases of the circulatory system; Z83.3 Family history of diabetes mellitus; Z82.3 Family history of stroke; Z68.31 Body mass index [BMI] 31.0-31.9, adult

== ENCOUNTER 2020-02-07 12:57 | Inpatient (IN) | payer MEDICARE ==
[~2020-02-07] VITALS: Wt 85.0 kg
[~2020-02-07 12:57] MED LIST changes: +ARICEPT5 M1 PO; +LACTULOSE10 GM/153 PO; +REMEDY CALAZIME4 GM T; +ZOFRAN4 MG PO; +ZYVOX600 MG PO
[2020-02-07 17:41] VITALS: BP 124/44
--- NOTE | 2020-02-07 17:41 | NUR ---
DR SCHAFER RESIDENT FOR DR HENRY AWARE OF PT ADMISSION TO UNIT, HOME MEDICATIONS CONTINUED.
[2020-02-07] MEDS ORDERED: VISTARIL25 MG PO (17:53)
[2020-02-07] MEDS ORDERED: ZYPREXA5 M1 PO (17:54)
[2020-02-07 18:07] VITALS: BP 124/44
--- NOTE | 2020-02-07 19:01 | NUR ---
ROMELIA GERBER a 84 year old F admitted via wheel chair from the 4TH FLOOR as a voluntary admission. Arrived on unit at 173O ALLERGIES: TAPE, FLEXERIL, DIAZAPAM, LYRICA, MACROBID, LEVAQUIN . Vital signs are: [id number] 124/44. The client signed the following forms with stated understanding: Authorization For The Release of Medical Information, Clothing List, Consent to Voluntary Admission and Hospitalization, Consent and Release Forms/Receipt of Rights, Acknowledgement of Advance Directive Information, Behavioral Health Consent Form, and Informed Consent of Medications. Admitted under the services of Dr. DUDLEY BELTRÁN,[facility]. A search was conducted and hazardous articles were removed. Client was oriented to the unit. FANY LEE PT ALERT TO PERSON, PLACE AND TIME. NO HALLUCIANTIONS OR DELUSIONS NOTED. WHEN ASKED IF SHE WAS SUICIDAL PT STATED "WELL WITH THE WAY THINGS ARE GOING ITS HARD TO TELL", PT VERBALLY CONTRACTS FOR SAFETY WITH STAFF. WOUND PHOTOTS TAKEN THIS TIME. PT PLEASANT WITH STAFF.
--- NOTE | 2020-02-07 19:12 | NUR ---
SPOKE WITH PHARMACY AND ADVISED THAT PT DOES NOT CURRENTLY HAVE A FENTYL PATCH ON. PER MELISA IN PHARMACY HE WILL TAKE CARE OF IT.
--- NOTE | 2020-02-07 19:15 | NUR ---
SKIN ASSESSMENT UPON ADMISSION REVEALS SKIN TEARS TO LEFT ARM PROXIMAL, RIGHT DISTAL FOREARM, RIGHT UPPER ARM, AND LEFT UPPER BUTTOCK/HIP AREA. DISCOLORATIONS NOTED TO BILATERAL FEET ON THE TOPS OF FEET AND DORSAL AREAS OF THE FEET. THESE AREAS ARE BLANCHABLE. LEFT HEEL HAS AN AREA OF REDNESS MEASURING 4.0CM X 5.0CM X <0.1CM, THE MIDDLE OF THIS AREA IS UNBLANCHABLE, UNABLE TO MEASURE EXACT AREA THAT DOES NOT RAIMUNDO. COCCYX/BUTTOCKS HAS AN AREA OF REDNESS MEASURING 9.5CM X 10CM X <0.1CM TOTAL, WITHIN THIS IDENTIFIED AREA ARE VARIOUS UNMEASUREABLE AREAS WHICH DO NOT MARIA VICTORIA. PT WITH VARIOUS AREAS OF DARK PURPLE BRUISED AREAS NOTED TO BILATERAL ARMS.
--- NOTE | 2020-02-07 19:16 | NUR ---
THIS NURSE SPOKE WITH DR HENRY REGARDING PT BILATERAL LOWER EXTREMITY EDEMA WITH THE LEFT BEING MORE EDEMATOUS THAN THE RIGHT WITH THE LEFT ALSO BEING WARM TO TOUCH, VERBAL ORDERS RECEVIED TO ORDER BLE ULTRSOUND. ALSO UPDATED DR HENRY THAT THE NURSE ON 4E PULLED PT MIDLINE D/T PT HAVING SCRIPTS FOR PO ATB. PER DR HENRY PT MUST HAVE IV ATB FOR ESBL OF URINE. HE STATED "YOU DO NOT HAVE A CHOICE SHE NEEDS IV ACCES THERE IS NOT ANOTHER ATB SHE CAN HAVE." ADVISED THAT WE WILL HAVE A NURSE ON MIDNIGHT SHIFT ATTEMPT. SANDRA NURSING CYBER INSTRUCTOR UPDATED ON IV ISSUE, PER SANDRA IF WE CANNOT GET IT, CALL NURSING CYBER INSTRUCTOR AND THEY WILL SEND SOMEONE.
[2020-02-07 20:00] VITALS: BP 145/48
--- NOTE | 2020-02-07 20:15 | NUR ---
SPOKE WITH DR HENRY TWICE. INFORMED HIM MERREM CANNOT BE GIVEN IM. HE ORDERED A PICC LINE INSERTION KATHY. INFORMED THAT SHE WOULD MISS 2 DOSES OF MERREM.
--- NOTE | 2020-02-07 21:33 | NUR ---
CONSENT FOR PICC LINE INSERTION SIGNED. NPO PER POLICY. COUMADIN HELD PER POLICY
--- NOTE | 2020-02-07 22:38 | NUR ---
PM CARE INCLUDING ORAL CARE COMPLETED. CLIENT ABLE TO STAND AND TRANSFER WITH ONE ASSIST. KELSEY JOEL DIRECTOR CALLED TO GET AUTHORIZATION TO ALLOW CLIENT TO HAVE HER PINK FLUFFY BLANKET TO SLEEP. WE ARE TO PLACE BACK IN SECURE AREA DURING DAY. O2 ON AT 2 L NC
--- NOTE | 2020-02-08 00:31 | NUR ---
ABX REORDERED AFTER BEING DC'D TO GIVE AN ANTIBOTIC IM. CLIENT GOING TO GET PICC LINE SO ABX REORDERED
--- NOTE | 2020-02-08 02:47 | NUR ---
24 HR chart check completed.
--- NOTE | 2020-02-08 05:53 | NUR ---
SLEPT [id number]. MOVED SELF IN BED. REFUSING ASSISTANCE TO TURN
--- NOTE | 2020-02-08 06:31 | NUR ---
PER SURGERY. SHE HAD A MIDLINE LAST TIME AND THAT IS PREFERED FOR IV ANTIBIOTICS. NO NEED FOR NPO STATUS. THEY WILL COME OVER THIS MORNING TO DO. NEW ORDER PLACED
--- NOTE | 2020-02-08 06:46 | NUR ---
ZABRINAROMELIA Chavez [id number] Please refer to the physician's history and physical for past medical history, comorbid conditions, and allergies. Diagnosis: MAJOR DEPRESSION RECURRENT SEVERE Karthik Score: 18,LOW OR NO RISK WOUND DESCRIPTIONS: Wound Number: 1 Location of the wound: left arm proximal Type of wound: skin tear Thickness: Partial Size: 1.8cm x 1.5cm x 0.1cm Tunneling: none Undermining: none Sinus Tract: none Presence of Exudate: Serosanguineous Amount: Light Color: Red Odor: None Periwound Skin Appearance: Normal Wound edges: approximated Pain (associated with wound): none at time of assessment How does patient state this happened? pt is unsure how this happened Wound Number: 2 Location of the wound: right forearm distal Type of wound: skin tear Thickness: Partial Size: 0.5cm x 0.6cm x 0.1cm Tunneling: none Undermining: none Sinus Tract: none Presence of Exudate: Serosanguineous Amount: Light Color: Red Odor: None Periwound Skin Appearance: Normal Wound edges: approximated Pain (associated with wound): none at time of assessment How does patient state this happened? pt is unsure how this happened Wound Number:3 Bilateral feet have several areas that are discolored at time of assessment all areas at time of assessment are blanchable. No open areas noted at time of assessment no drainage noted at time of assessment to bilateral feet. Wound Number: 4 Location of the wound: Right upper arm Type of wound: skin tear Thickness: Partial Size: 1.5cm x 0.5cm x 0.1cm Tunneling: none Undermining: none Sinus Tract: none Presence of Exudate: Serosanguineous Amount: Light Color: Red Odor: None Periwound Skin Appearance: Normal Wound edges: approximated Pain (associated with wound): none at time of assessment How does patient state this happened? pt is unsure how this happened Wound Number: 5 Location of the wound: left buttocks (coccyx/buttocks) Type of wound: stage 2 Thickness: Partial Size: 1.5cm x 1.0cm x 0.1cm Tunneling: none Undermining: none Sinus Tract: none Presence of Exudate: Serous sanguineous Amount: Light Color: Red Odor: None Periwound Skin Appearance: Normal Wound edges: approximated Pain (associated with wound): none at time of assessment How does patient state this happened? pt is unsure how this happened Wound Number: 6 Location of the wound: left upper buttocks/hip Thickness: Partial Size: 0.3cm x 0.4cm x 0.1cm Tunneling: none Undermining: none Sinus Tract: none Presence of Exudate: Serosanguineous Amount: Light Color: Red Odor: None Periwound Skin Appearance: Normal Wound edges: approximated Pain (associated with wound): none at time of assessment How does patient state this happened? pt is unsure how this happened Wound Number: 7 Location of the wound: left heel red and blanchable at time of assessment. Patient did have tenderness upon palpation. No open areas noted at time of assessment no drainage at time of assessment. Wound Number: 8 Location of the wound: right upper buttocks/hip Thickness: Partial Size: 0.5cm x 0.2cm x 0.1cm Tunneling: none Undermining: none Sinus Tract: none Presence of Exudate: Serous sanguineous Amount: Light Color: Red Odor: None Periwound Skin Appearance: Normal Wound edges: approximated Pain (associated with wound): none at time of assessment How does patient state this happened? pt is unsure how this happened Wound Number: 9 Location of the wound: left forearm distal Type of wound: skin tear Thickness: Scab Size: 0.5cm x 0.2cm x <0.1cm Tunneling: none Undermining: none Sinus Tract: none Presence of Exudate: none Amount: None Color: Red, brown Odor: None Periwound Skin Appearance: Normal Wound edges: approximated Pain (associated with wound): none at time of assessment How does patient state this happened? pt is unsure how this happened Surface the patient is resting on: Proform SKIN PREVENTION RECOMMENDATION: 1. Pressure redistribution support surface as appropriate 2. Elevate heels 3. Remove boots/TEDS every shift and reapply 4. Head of bed 30 degrees as tolerated 5. Assess nutrition and hydration 6. Manage moisture 7. Avoid the use of containment devices while in bed 8. Use absorptive products on surfaces limit layers of linens on bed 9. Turn and reposition every 1-2 hours in bed and every 1 hour in chair as tolerated 10. Weight shifts every 15 minutes while up in chair 11. Offloading with pillows or device to keep heels elevated off bed 12. Monitor skin at least every shift 13. Inspect under medical devices twice a day WOUND TREATMENT RECOMMENDATIONS: Wheelchair cushion when oob. Heel raiser pro boots to bilateral feet. Stage 2 guidelines: Cleanse Left buttocks (coccyx/buttocks) with nss and apply sureprep around the wound hydrogel to wound bed and cover with optifoam gentle every 2 days and prn for soiling. Partial thickness guidelines: Cleanse left arm proximal, left arm distal, right forearm distal, right upper arm, left upper buttocks/hip, right upper buttocks/hip with nss and apply sureprep around the wound hydrogel to wound bed and cover with dsd (bandaid or optifoam gentle) every 2 days and prn for soiling.
--- NOTE | 2020-02-08 07:07 | NUR ---
REFUSED AM LABS TILL AFTER SHE GETS MIDLINE
[2020-02-08 07:43] VITALS: BP 119/48
--- NOTE | 2020-02-08 08:30 | NUR ---
TREATMENT PLAN MEETING WAS HELD WITH DR. BUCKNER, RN, AT, COIL WINDER-S AND GUEST EXPERIENCE CAPTAIN. PLAN FOR DISCHARGE NEXT WEEK. PT. CAME FROM HOME TO [facility].
--- NOTE | 2020-02-08 08:45 | NUR ---
Dr. Hernandez notified of wound care orders needed.
--- NOTE | 2020-02-08 11:00 | NUR ---
MIDLINE PLACED BY SURGICAL NURSE, 12CM IN RIGHT UPPER ARM. PATIENT TOLERATED THE PROCEDURE WELL.
--- NOTE | 2020-02-08 11:58 | NUR ---
AM GROUP PT WAS UNABLE TO ATTEND MORNING GROUP THERAPY FOR MORE THAN A FEW MINUTES. PT HAD TO HAVE A PROCEDURE DONE IN PT ROOM.
--- NOTE | 2020-02-08 12:18 | NUR ---
Nutritional Support Services Note: Pt is ordered a renal diet. Appetite is fair for meals. Recommend Ensure po BID. Numerous skin tears, wounds noted. Will follow as needed. Staff to encourage intake. [place] food preferences. [employer]ola [employer] Rdn Ld
--- NOTE | 2020-02-08 12:25 | NUR ---
BLOOD DRAWN FROM MIDLINE, MIDLINE FLUSHED WITHOUT DIFFICULTY, NO SIGN AND SYMPTOMS OF INFECTION. AFTER BLOOD DRAWN. IV MEROPENEM INFUSING PER ORDER.
--- NOTE | 2020-02-08 12:45 | NUR ---
DR. HENRY AND DR. SCHAFER ON UNIT TO ASSESS PATIENT.
--- NOTE | 2020-02-08 13:03 | NUR ---
CRITICAL LAB OF [facility] L[facility], DR. BUCKNER NOTIFIED WITH VERBAL ORDERS LACTULOSE 20GM PO BID.
[2020-02-08 13:08] LABS: BASO # 0.1 10*3/uL (0.0-0.1); BASO % 0.9 % (0.0-1.0); EOS # 0.5 10*3/uL (0.0-0.4); EOS % 5.1 % (1.0-4.0); HEMATOCRIT 28.7 % (37.0-47.0); HEMOGLOBIN 8.6 g/dl (12.0-16.0); LYMPH # 2.3 10*3/uL (1.3-4.4); LYMPH % 25.6 % (27.0-41.0); MEAN CELL VOLUME 90.3 fl (81.0-99.0); MEAN PLATELET VOLUME 12.3 fl (9.6-12.3); MONO % 11.1 % (3.0-9.0); NEUT # 5.1 10*3/uL (2.3-7.9); PLATELET COUNT AUTOMATED 123 10*3/uL (130-400); RED BLOOD COUNT 3.18 10*6/uL (4.10-5.10); RED CELL DISTRI WIDTH 21.3 % (0-14.5)
[2020-02-08 13:10] LABS: ALBUMIN 2.8 gm/dl (3.1-4.5); CREATININE 2.52 mg/dL (0.55-1.02); POTASSIUM 4.7 mmol/L (3.5-5.1); TOTAL PROTEIN 7.4 gm/dL (6.4-8.2)
[2020-02-08 13:17] LABS: THYROID STIM HORMONE (HS) 3.34 uIU/ml (0.358-4.75)
[2020-02-08 13:36] LABS: VITAMIN D, 25-HYDROXY 24.8 ng/mL (30-100)
--- NOTE | 2020-02-08 13:37 | NUR ---
NOTIFIED OF ABNORMAL LABS.
--- NOTE | 2020-02-08 14:44 | NUR ---
Spoke with pt's daughter Evelyn Lazcano and discussed pt's current status and previous status. Discussed discharge plan. Confirmed to Evelyn that by previous notes from [facility], pt is to discharge to [facility]. Evelyn stated that she wants pt to return home if at all possible. Evelyn was tearful as she discussed this further. Tentative discharge plan is for pt to discharge home with [facility]. Informed Evelyn that a PT/OT eval has been ordered. When eval is available, this sheet writer will discuss the recommendations with Evelyn.
--- NOTE | 2020-02-08 15:08 | NUR ---
Occupational therapy orders and nursing screen received. Will follow up with patient for completion of an OT evaluation. Thank you. Sharonda Echeverria, OTR/L
--- NOTE | 2020-02-08 15:21 | NUR ---
PHYSICAL THERAPY Screen and PT eval received will follow thank you Edith Lilly PT
--- NOTE | 2020-02-08 15:35 | NUR ---
PM GROUP PT ATTENDED AFTERNOON GROUP THERAPY AND PARTICIPATED BY DOING A CROSSWORD AND LISTENING TO MUSIC. PT WAS SOCIALABLE AND PLEASANT. PT EXHIBITED NO ADVERSE BEHAVIORS WHILE IN GROUP.
[2020-02-08 19:35] VITALS: BP 112/44
--- NOTE | 2020-02-08 21:16 | NUR ---
INCOONTINENT OF BROWN MUSH/FORMED STOOL. WHEN CLIENT STOOD UP SHE HAD LARGE AMOUNT OF BRIGHT RED BLEEDING WITH CLOTS. GOT HER INTO BED CLEANED UP AND BLEEDING STOPPED. CLIENT HAS LARGE EXTERNAL HEMERRHOIDS. CLIENTS STATES THIS HAS HAPPENED BEFORE. NOTIFIED DR BALES. ADDING CBC TO AM LAB WORK. WILL MONITOR FOR ADDITIONAL BLEEDING
--- NOTE | 2020-02-09 02:55 | NUR ---
24 HR chart check completed.
--- NOTE | 2020-02-09 05:32 | NUR ---
SLEPT WELL PAST 2215PM. MOVES SELF IN BED. REFUSES ASSISTANCE. NO BLEEDING NOTED THROUGHOUT THE NIGHT
[2020-02-09 06:14] LABS: BASO # 0.1 10*3/uL (0.0-0.1); EOS # 0.5 10*3/uL (0.0-0.4); EOS % 5.6 % (1.0-4.0); HEMATOCRIT 27.2 % (37.0-47.0); HEMOGLOBIN 8.2 g/dl (12.0-16.0); LYMPH # 2.2 10*3/uL (1.3-4.4); LYMPH % 26.4 % (27.0-41.0); MEAN CELL VOLUME 91.3 fl (81.0-99.0); MEAN CORPUSCULAR HGB 27.5 pg (27.0-31.0); MEAN CORPUSCULAR HGB CONC 30.1 g/dl (33.0-37.0); MEAN PLATELET VOLUME 12.6 fl (9.6-12.3); MONO # 1.1 10*3/uL (0.1-1.0); MONO % 13.7 % (3.0-9.0); NEUT # 4.4 10*3/uL (2.3-7.9); NEUT % 52.8 % (47.0-73.0); PLATELET COUNT AUTOMATED 119 10*3/uL (130-400); RED BLOOD COUNT 2.98 10*6/uL (4.10-5.10); RED CELL DISTRI WIDTH 21.3 % (0-14.5); WHITE BLOOD COUNT 8.2 10*3/uL (4.8-10.8)
[2020-02-09 06:39] LABS: ALBUMIN 2.6 gm/dl (3.1-4.5); CREATININE 2.2 mg/dL (0.55-1.02); POTASSIUM 4.9 mmol/L (3.5-5.1)
--- NOTE | 2020-02-09 06:48 | NUR ---
LABS DRAWN VIA POLICY FROM MIDLINE. BLOOD FLOWED WITHOUT RESISTANCE. AM MEDICATIONS GIVEN. REFUSES TO GET UP AT THIS TIME
[2020-02-09 07:32] VITALS: BP 118/54
--- NOTE | 2020-02-09 08:30 | NUR ---
TREATMENT PLAN MEETING WAS HELD WITH DR. BUCKNER, LUIS THAKKAR, RN, AT, CHECK WRITER-S AND SHEARER OPERATOR. PLAN FOR DISCHARGE WEDNESDAY. PT. WILL RETURN HOME WITH FAMILY AT DISCHARGE.
--- NOTE | 2020-02-09 08:30 | NUR ---
TREATMENT PLAN MEETING WAS HELD WITH DR. BUCKNER, LUIS THAKKAR RN, AT AND ADMINISTRATIVE PROCESSOR. PLAN FOR DISCHARGE WEDNESDAY. PT. WILL RETURN HOME WITH FAMILY.
--- NOTE | 2020-02-09 09:30 | NUR ---
Occupational therapy orders received and OT evaluation completed in full on floor three. Patient precautions include fall risk, ww, IV port, weakness, O2, 2 person assist, and h/o pacemaker. Per OT eval, OT recommends SNF. If refused, home with SN, OT, and PT with 24/7 supervision assist. Patient would benefit from continued OT treatment to maximize safety and independence with ADLs, mobility, and transfers. [place], [id number]. Thank you for the referral. Sharonda Echeverria, OTR/L
--- NOTE | 2020-02-09 10:32 | NUR ---
Physical Therapy evaluation completed on U with full evaluation to follow. Recommend physical therapy per plan of care, pt would benefit from SNF at this time, if to go home would recommend HH PT/OT and will require 24 hr care/assist. Pt also currently using 2L oxygen which she was not at home. Thank you for this referral. Edith Lilly PT
--- NOTE | 2020-02-09 11:46 | NUR ---
AM GROUP PT ATTENDED MORNING GROUP THERAPY AND PARTICIPATED BY READING THE NEWSPAPER. PT IS SET TO BE DISCHARGED FROM THE UNIT THIS AFTERNOON.
--- NOTE | 2020-02-09 11:47 | NUR ---
AM GROUP PT ATTENDED MORNING GROUP THERAPY AND PARTICIPATED BY READING THE NEWSPAPER AND SOCIALIZING WITH THIS CARDIAC EXERCISE SPECIALIST. PT EXHIBITED NO ADVERSE BEHAVIORS WHILE IN GROUP. PT IS PLEASANT AND COOPERATIVE.
--- NOTE | 2020-02-09 13:09 | NUR ---
DR. HENRY ON UNIT TO ASSESS PATIENT.
--- NOTE | 2020-02-09 13:26 | NUR ---
Spoke with Pt. daughter Theresa via telephone. Daughter advised that Pt. does not use Oxygen at home. Daughter also advised that she would like Pt. to return home at Discharge with Home Health.
[2020-02-09 14:00] VITALS: BP 170/86
--- NOTE | 2020-02-09 15:23 | NUR ---
PM GROUP PT ATTENDED AFTERNOON GROUP THERAPY AND PARTICIPATED BY HAVING HER NAILS DONE AND SOCIALIZING WITH THIS [employer] FACTORY WORKER. PT EXHIBITED NO ADVERSE BEHAVIORS WHILE IN GROUP
--- NOTE | 2020-02-09 18:41 | NUR ---
P: LIGHTLY DEPRESSED MOOD WITH FLAT AFFECT; PATIENT SITTING QUIETLY IN DINING ROOM WITHDRAWN. NO VERBAL COMPLAINTS VOICED. I: ONE ON ONE FOR EMOTIONAL SUPPORT. ENCOURAGED GROUP PARTICIPATION. R: EFFECTIVE. PATIENT IS ALERT TO PERSON, PLACE, TIME; ABLE TO VOICE NEEDS. MOOD IS SLIGHTLY DEPRESSED. DENIES ANY HALLUCINATIONS, DELUSIONS, HI/SI OR PAIN. MEDICATION COMPLAINT WITH EDUCATION PROVIDED. Q 15 MINUTE SAFETY CHECKS MAINTAINED. 1 PERSON ASSIST WITH ACTIVITIES OF DAILY LIVING, CONTINENT OF BOWEL AND BLADDER. SET UP FOR MEALS, INTAKES IMPROVIING. INTERACTIVE WITH STAFF AND PARTICIPATED IN GROUP SESSIONS. NO TEARFUL EPISODES NOTED. MIDLINE IN RIGHT UPPER ARM; SITE FREE FROM INFECTION. DRESSING CHANGED THIS MORNING DUE TO DRESSING RUBBING OFF. ANTIBOTICS GIVEN THIS MORNING AND FLUSHED WITHOUT DIFFICULTY. PATIENT RECEIVED SHOWER, MIDLINE SITE COVERED WITH PLASTIC WRAP. P: CONTINUE TO MONITOR MOOD. PROVIDE ONE ON ONE FOR EMOTIONAL SUPPORT NEEDED.
[2020-02-09 20:00] VITALS: BP 102/54
--- NOTE | 2020-02-09 22:37 | NUR ---
NO ADVERSE BEHAVIORS NOTED. PT ALERT TO PERSON AND PLACE, APPROX TO TIME. PT CALM, COOPERATIVE, AND INTERACTIVE. PT MEDICATION COMPLIANT WITHOUT DIFFICULTY AFTER REVIEW. PT DENIES SI/HI OR HALLUCINATIONS, NO NOTED RESPONDING TO INTERNAL STIMULI. NO PARANOIA/DELUSIONS NOTED. PT COMPLIANT WITH HOC, ABLE TO MAKE NEEDS KNOWN, ASSIST X1. CONTINENT OF BOWEL AND BLADDER. NO PHYSICAL COMPLAINTS VOICED. RIGHT UPPER EXTREMITY MIDLINE PATENT AND INTACT, FLUSHES EASILY WITH GOOD BLOOD RETURN, SITE UNREMARKABLE. PATIENT CURRENTLY LAYING DOWN WITH EYES CLOSED, RESPIRATIONS EASY AND REGULAR ON ROOM AIR, SPO2 100. NO SIGNS OR SYMPTOMS OF DISTRESS NOTED. PLAN IS TO CONTINUE TO MONITOR MOOD AND BEHAVIORS. PROVIDE 1:1 WITH SUPPORT NEEDED. ENCOURAGE MEDICATION COMPLIANCE AND EDUCATE. MAINTAIN Q 15 MIN CHECKS AND PRN FOR SAFETY.
--- NOTE | 2020-02-09 23:42 | NUR ---
24 HOUR CHART CHECK COMPLETED.
--- NOTE | 2020-02-10 05:47 | NUR ---
PATIENT OBSERVED ON Q 15 MIN CHECKS TO HAVE SLEPT APPROX 4 HOURS INTERRUPTED. NO SIGNS OR SYMPTOMS OF DISTRESS NOTED.
[2020-02-10 07:29] VITALS: BP 142/63
--- NOTE | 2020-02-10 18:52 | NUR ---
NO ADVERSE MOODS OR BEHAVIORS NOTED THIS SHIFT. PT IS PLEASANT, COOPERATIVE WITH ASSESSMENT. ALERT AND ORIENTED TO PERSON, PLACE, AND TIME. PT HAS BEEN ASSISTED X 1 T/O SHIFT WITH HOC. CONTINENT OF BOWEL AND BLADDER WITH INCONTINENT EPISODES. Q 15 MIN MONITORING PER POLICY FOR SAFETY.
--- NOTE | 2020-02-10 19:20 | NUR ---
PT PRESSED CALL LIGHT FOR ASSISTANCE TO BATHROOM. PT'S LEFT LOWER EXTREMITY FROM KNEE TO ANKLE RED, WARM TO TOUCH, +2 PITTING EDEMA NOTED. PT C/O DISCOMFORT UPON ASSESSMENT. ATTEMPTED TO NOTIFY DR. HENRY AT THIS TIME. NO ANSWER. WILL ATTEMPT TO NOTIFY AGAIN.
--- NOTE | 2020-02-10 19:26 | NUR ---
ATTEMPTED TO NOTIFY DR. HENRY OF PT'S LEFT LOWER EXTREMITY CONDITION AND CXR RESULTS AT THIS TIME. NO ANSWER. MESSAGE LEFT FOR HIM TO RETURN CALL.
[2020-02-10 20:07] VITALS: BP 112/73
--- NOTE | 2020-02-10 21:20 | NUR ---
ATTEMPTED TO CALL ELAINE TO PROVIDE UPDATE. NO ANSWER. MESSAGE LEFT TO RETURN CALL.
--- NOTE | 2020-02-10 21:55 | NUR ---
RETURNED CALL AT THIS TIME. UPDATED ON PT'S LEFT LOWER EXTREMITY FROM KNEE TO ANKLE RED, WARM TO TOUCH, +2 PITTING EDEMA, ALSO THAT PT HAS C/O DISCOMFORT WITH ASSESSMENT. ALSO REVIEWED RESULTS OF PT'S VENOUS US ON 02/08/20 AND PATIENTS RECENT CHEST X-RAY ON 02/10/20. STATED TO DO A PT/INR FOR IN THE AM AND HAVE PHARMACY ADJUST THE COUMADIN AND THAT PATIENTS CHEST X-RAY WAS OKAY. NO OTHER ORDERS RECEIVED.
--- NOTE | 2020-02-11 01:32 | NUR ---
P-INTERMITTENT CONFUSION. PARANOID. TEARFUL, BELIEVES THE DOCTOR IS GOING TO AMPUTATE HER LEG AND THAT STAFF IS HOLDING HER FAMILY FROM HER. AUDITORY AND VISUAL HALLUCINATIONS. I-PROVIDE REORIENTATION WITH REALITY PRESENTATION, REDIRECT NEEDED. PROVIDE 1:1 WITH THERAPEUTIC INTERVENTIONS. PROVIDE REASSURANCE OF SAFETY. PROVIDE DIVERSION TECHNIQUES TO HELP CALM. ENCOURAGE MEDICATION COMPLIANCE AND EDUCATE. MONITOR SLEEP. R- INTERVENTIONS MINIMALLY EFFECTIVE IN CALMING PATIENT, PT REMAINED SUSPICIOUS OF STAFF AND PREOCCUPIED THAT THE DOCTOR WAS GOING TO REMOVE HER LEG, TEARFUL. PT THEN ENCOURAGED TO RETURN CALL TO HER BROTHER TO ASSIST IN LESSENING HER ANXIETY TOWARDS NOT SEEING HER FAMILY, INTERVENTION EFFECTIVE. PT ALSO SPOKE WITH DAUGHTER THIS HS WITH CALMING EFFECTS. PT MEDICATION COMPLIANT WITH MUCH ENCOURAGEMENT AND EDUCATION. PT DENIES HALLUCINATIONS BUT IS OBSERVED BY STAFF TALKING TO UNSEEN OTHERS, STATING TO STAFF "YOU DON'T SEE THAT BLACK DOG OVER THERE AND THAT PRETTY WHITE ONE?, ARE THERE GOING TO BE PUPPIES?" AND "IM TALKING TO THAT BOY DOWN THERE, WELL HE WAS THERE, HE MUST OF WENT WITH HIS MOTHER", UNABLE TO REDIRECT. PT COMPLIANT WITH HOC, ABLE TO MAKE NEEDS KNOWN, ASSIST X1. CONTINENT OF BOWEL AND BLADDER. RIGHT UPPER EXTREMITY MIDLINE PATENT AND INTACT, FLUSHES EASILY WITH GOOD BLOOD RETURN, SITE UNREMARKABLE. NO PHYSICAL COMPLAINTS VOICED. PT LAYING IN ROOM AND BED, AWAKE, RESPIRATIONS EASY AND REGULAR ON ROOM AIR, SPO2 100. NO SIGNS OR SYMPTOMS OF DISTRESS NOTED. P-CONTINUE TO MONITOR MOOD AND BEHAVIORS. MAINTAIN Q 15 MIN CHECKS AND PRN FOR SAFETY.
--- NOTE | 2020-02-11 05:53 | NUR ---
24 hour chart check completed.
--- NOTE | 2020-02-11 05:55 | NUR ---
PATIENT OBSERVED ON Q 15 MIN CHECKS TO HAVE SLEPT APPROX 1.5 HOURS INTERRUPTED. NO SIGNS OR SYMPTOMS OF DISTRESS NOTED.
[2020-02-11 06:26] LABS: INTERNATIONAL NORM RATIO 1.9 (2.0-3.5)
[2020-02-11 06:31] LABS: BASO % 0.3 % (0.0-1.0); EOS # 0.3 10*3/uL (0.0-0.4); EOS % 3.2 % (1.0-4.0); HEMATOCRIT 27.4 % (37.0-47.0); HEMOGLOBIN 8.3 g/dl (12.0-16.0); LYMPH # 2.2 10*3/uL (1.3-4.4); LYMPH % 24.8 % (27.0-41.0); MEAN CELL VOLUME 88.7 fl (81.0-99.0); MEAN CORPUSCULAR HGB 26.9 pg (27.0-31.0); MEAN CORPUSCULAR HGB CONC 30.3 g/dl (33.0-37.0); MEAN PLATELET VOLUME 12.5 fl (9.6-12.3); MONO # 1.2 10*3/uL (0.1-1.0); MONO % 13.5 % (3.0-9.0); NEUT # 5.2 10*3/uL (2.3-7.9); NEUT % 57.8 % (47.0-73.0); RED BLOOD COUNT 3.09 10*6/uL (4.10-5.10); RED CELL DISTRI WIDTH 21.5 % (0-14.5); WHITE BLOOD COUNT 9.1 10*3/uL (4.8-10.8)
[2020-02-11 06:35] LABS: PLATELET COUNT AUTOMATED 183 10*3/uL (130-400)
[2020-02-11 06:48] LABS: CREATININE 1.96 mg/dL (0.55-1.02)
[2020-02-11 07:30] VITALS: BP 136/59
--- NOTE | 2020-02-11 12:39 | NUR ---
P: VISUAL HALLUCINATIONS, STATING "I SEE THERAPY, WANT TO GET UP TO DO THERAPY", NURSE IN ROOM. PATIENT TALKING TO WINDOW IN ROOM. I: ONE ON ONE AND REDIRECTION PROVIDED. PATIENT ASSISTED TO BATHROOM FOR TOILETING NEEDS. R: EFFECTIVE. PATIENT IS ALERT TO PERSON, PLACE, TIME WITH INTERMITTANT CONFUSION. MEMORY DEFICITS NOTED. MOOD IS STABLE, CALM DEMEANOR. DENIES ANY HALLUCINATIONS, DELUSIONS, HI/SI OR PAIN. RESPONDING TO INTERNAL STIMULI. MEDICATION COMPLAINT. Q 15 MINUTE SAFETY CHECKS MAINTAINED. ONE PERSON ASSIST WITH ACTIVITIES OF DAILY LIVING, CONTINENT OF BOWEL AND BLADDER. SET UP FOR MEALS, INTAKES ARE GOOD WITH ADEQUATE FLUIDS. INTERACTIVE WITH STAFF AND ACTIVITIES PROVIDED. PATEINT IS PAINTING A BIRD HOUSE AND WATCH MOVIE WITH OTHER PATIENTS IN DINING ROOM. P: CONTINUE TO MONITOR FOR HALLUCINATIONS, MOOD AND MEAL INTAKES. PROVIDE ONE ON ONE, AND REDIRECTION NEEDED.
--- NOTE | 2020-02-11 16:37 | NUR ---
Shift chart check completed.
[2020-02-11 19:39] VITALS: BP 138/85
--- NOTE | 2020-02-11 21:13 | NUR ---
PT HAS BEEN PLEASANT THIS EVENING. SHE IS ALERT & ORIENTED TO PERSON, PLACE & TIMES. MEMORY DEFICITS PRESENT. HAS SAT IN THE DINING ROOM & ATE SNACK INDEPENDENTLY. SELF PROPELS TO HER ROOM. STAND BY ASSISTANCE WHILE PT TRANSFERRED SELF TO TOILET & PUT HER OWN DIAPER ON. SHE STATED, "I WANT TO DO EVERYTHING FOR MYSELF THAT I CAN." NO BIZARRE BEHAVIOR THUS FAR. NO DELUSIONAL STATEMENTS VOICED. DENIES SENSORY DISTURBANCE & NONE IS EVIDENT. COMPLIANT TAKING MEDICATIONS WHOLE & MIXED IN APPLESAUCE. STATED THAT SHE DID NOT SLEEP WELL LAST HS. MEDICATED WITH PRN ROZEREM 8 MG @ 2051 FOR ASSISTANCE WITH SLEEP.
--- NOTE | 2020-02-11 22:25 | NUR ---
24 HR chart check completed.
--- NOTE | 2020-02-12 05:12 | NUR ---
PT HAS SLEPT PAST 2114 WITH A BRIEF AWAKEING TO GO TO THE BATHROOM WITH 1 STAFF ASSIST. CONTINENT OF URINE.
[2020-02-12 06:15] LABS: BASO % 0.2 % (0.0-1.0); EOS # 0.2 10*3/uL (0.0-0.4); HEMATOCRIT 27.2 % (37.0-47.0); HEMOGLOBIN 8.1 g/dl (12.0-16.0); LYMPH # 2.2 10*3/uL (1.3-4.4); LYMPH % 22.4 % (27.0-41.0); MEAN CELL VOLUME 91.6 fl (81.0-99.0); MEAN CORPUSCULAR HGB 27.3 pg (27.0-31.0); MEAN CORPUSCULAR HGB CONC 29.8 g/dl (33.0-37.0); MEAN PLATELET VOLUME 12.3 fl (9.6-12.3); MONO # 1.2 10*3/uL (0.1-1.0); MONO % 12.7 % (3.0-9.0); NEUT # 6.1 10*3/uL (2.3-7.9); NEUT % 62.3 % (47.0-73.0); PLATELET COUNT AUTOMATED 198 10*3/uL (130-400); RED BLOOD COUNT 2.97 10*6/uL (4.10-5.10); RED CELL DISTRI WIDTH 21.6 % (0-14.5); WHITE BLOOD COUNT 9.8 10*3/uL (4.8-10.8)
[2020-02-12 06:17] LABS: INTERNATIONAL NORM RATIO 1.9 (2.0-3.5)
[2020-02-12 06:24] LABS: ALBUMIN 2.5 gm/dl (3.1-4.5); CREATININE 1.83 mg/dL (0.55-1.02); POTASSIUM 5.1 mmol/L (3.5-5.1)
--- NOTE | 2020-02-12 06:45 | NUR ---
PT HAS HAD A MOIST NON PRODUCTIVE COUGH THROUGHOUT THE SHIFT. WAS PLACED ON 02 @ 2L/MIN. PULSE OX MAINTAINED AT 98%. COUGHING DECREASED GREATLY. TAKEN TO DINING ROOM & PULSE OX DROPPED TO 77% ON ROOM AIR. WHEN O2 APPLIED @ 2L/MIN PULSED OX READ 100%. NOTED TO HAVE AUDIBLE EXPIRATORY WHEEZING.
--- NOTE | 2020-02-12 07:10 | NUR ---
PHYSICAL THERAPY Patient seen this am for therapy visit and was sitting up in activity room w/c upon therapist arrival. Patient identified by name / and was very pleasant this morning, voicing no c/o's pain. OT district administrative assistant was present for observation only this session as patient instructed on B LE therex. Patient performed seated B LE therex, all planes, x 10 reps each to increase LE strength, followed by sit to stand transfer MIN A. Patient also presented with continuos O2-2L via NC, however unable to obtain SpO2 due to patient having cold hands. Patient ambulated with use of wh walker, 8'x 1 to bathroom, then additional 20'x 1, CGA, demonstrating decreased stride, needing v/c to improve head up posture. Patient returned to her w/c with mild fatigue in activity room and remained at table awaiting breakfast under [facility] staff Supervision. Will continue per POC as tolerated, total treatment time 18 minutes. Michael Peterson, TRIBAL JUDGE
--- NOTE | 2020-02-12 07:24 | NUR ---
OT NOTE Prior to coming to the floor spoke with charge nurse Ruma and reported that therapy was coming to treat this pt. Pt was seen this A.M. 1:1 for 24 minute OT session with PHYSICS AND ASTRONOMY PROFESSOR and nursing staff present for observation only. Upon arrival pt was sitting upright in the w/c in the dining becker. Pt identified by name and and had no complaints at this time. Pt presented to therapy with continuous 2L-O2 via NC which she remained on throughout the entire session and midline to [facility]. Pt was taken to her bedroom where she completed sit to stand from chair level with Wilbur and use of w/w for UE support. Functional mobility was then completed to the commode with Wilbur for assist with safety with the walker, safety with turning, and safety with the O2 line. Pt transferred on to standard commode with CGA and off with Wilbur and use of grab bar. Pt then stood sink side while washing her hands with CGA for safety. Pt initally required verbal prompts for stepping closer to the sink due to reaching outside unsafe distance increasing risk of falls. Pt was then taken out to the hallway. There pt's static standing tolerance was challenged for increased I in self care tasks and functional transfers. Pt was able to tolerate aprox 3 minutes at a time before sitting due to fatigue. Pt was left sitting upright in the w/c in the dining becker under [facility] staff supervision. Continue with rec D/C plan to SNF. HENRI Harden
[2020-02-12 07:40] VITALS: BP 106/58
--- NOTE | 2020-02-12 07:52 | NUR ---
Patient sitting quietly in dining room, eating with no c/o discomfort. Respirations easy and regular. Vital signs stable. No overt distress. JIM MARTINEZ
--- NOTE | 2020-02-12 12:47 | NUR ---
Plan for discharge is for pt. to return home with family Wednesday or with Home Health.
--- NOTE | 2020-02-12 13:50 | NUR ---
DR. SCHAFER NOTIFIED OF PATIENT'S ABDOMINAL FOLDS AND GROIN AREAS RED. NEW ORDER IN PLACE
[2020-02-12 14:31] LABS: CLARITY SL CLOUDY (CLEAR); COLOR YELLOW (YELLOW)
[2020-02-12 14:32] LABS: BACTERIA TRACE; BILIRUBIN NEGATIVE (NEGATIVE); BLOOD NEGATIVE (NEGATIVE); GLUCOSE NEGATIVE (NEGATIVE); KETONE NEGATIVE (NEGATIVE); LEUKO ESTERASE NEGATIVE (NEGATIVE); NITRITE NEGATIVE (NEGATIVE); SPECIFIC GRAVITY 1.025 (1.005-1.030); UROBILINOGEN 0.2 E.U./dl (0.2-1.0)
[2020-02-12 14:33] LABS: HYALINE CAST 0-2
--- NOTE | 2020-02-12 18:22 | NUR ---
P: DEPRESSED MOOD. PATIENT RATED 8/10 ON DEPRESSION SCALE. I: ONE ON ONE FOR EMOTIONAL SUPPORT, ENCOURAGED INTERACTION [facility] AND HOME STAFF. R: EFFECTIVE. PATIENT IS ALERT TO PERSON, PLACE, TIME AND SITUATION WITH INTERMITTANT CONFUSION. MOOD IS SLIGHTLY DEPRESSED, IMPROVEMENT NOTED. INTERACTIVE WITH STAFF AND PARTICIPATED IN ONE ON ONE INTERACTIONS. DENIES ANY HALLUCINATIONS, DELUSIONS, HI/SI OR PAIN. MEDICATION COMPLAINT WITH EDUCATION PROVIDED. Q 15 MINUTE SAFETY CHECKS. 1-2 PERSON ASSIST WITH ACTIVITIES OF DAILY LIVING, MIXED INCONTINENCE OF BOWEL AND BLADDER. SET UP FOR MEALS, INTAKES VARY WITH ENCOURAGEMENT. P: CONTINUE TO MONITOR MOOD AND HALLUCINATIONS. PROVIDE ONE ON ONE, REDIRECTION AND ORIENTATION NEEDED.
--- NOTE | 2020-02-12 19:22 | NUR ---
24 HR chart check completed.
[2020-02-12 19:30] VITALS: BP 122/69
--- NOTE | 2020-02-12 20:41 | NUR ---
P-DEPRESSED, TEARFUL I-PROVIDE 1:1 FOR VERBAL INTERVENTION & EMOTIONAL SUPPORT. ENCOURAGE PO INTAKE, ADMINISTER MEDS, MONITOR SLEEP R-PT HAS BEEN SITTING IN THE DINING ROOM NODDING OFF. REQUIRED ENCOURAGEMENT TO EAT SNACK. DID DRINK 240CC CRANBERRY JUICE. STATED SHE WASNT THAT HUNGRY & HER STOMACH WAS A LITTLE UPSET. SPOKE WITH HER DAUGHTER ON THE PHONE & BECAME TEARFUL. DEPRESSED MOOD. MILD ANXIETY. COMPLIANT TAKING MEDICATIONS WHOLE WITH APPLESAUCE. NOTED TO HAVE MOIST NON-PRODUCTIVE COUGH. 1 ASSIST TO BATHROOM. WAS CONTINENT OF URINE & MIXED INCONTINENCE OF BOWEL MOVEMENT. 2 LITER O2 APPLIED FOR SOB ON EXERTION. RECEIVED RESPIRATORY TREATMENT. PULSE OX 98% ON 2 LITERS AFTER TREATMENT. MEDICATED WITH ROZEREM 8 MG PRN @ 2008. P-CONTINUE TO MONITOR & PROVIDE PHYSICAL ASSISTANCE & EMOTIONAL SUPPORT NEEDED.
--- NOTE | 2020-02-13 00:19 | NUR ---
PT HAS SLEPT FROM [id number]. SHE HAS REMAINED AWAKE RESTING QUIETLY STATING THAT SHE CANNOT SLEEP. INCONTINENT OF A VERY LARGE SOFT LIGHT BROWN BM AT THIS TIME.
--- NOTE | 2020-02-13 01:30 | NUR ---
SLEEPING A COUPLE MINUTES AT A TIME. CONFUSED TO TIME AND PLACE. DIFFICULT TO REDIRECT. EMOTIONAL SUPPORT PROVIDED
--- NOTE | 2020-02-13 04:53 | NUR ---
PT HAS RESTED INTERMITTENTLY THROUGHOUT THE SHIFT SOMETIMES TALKING IN HER SLEEP. HAS SLEPT APPROX 4-5 HOURS. HAS REFUSED TO WEAR HEEL PROTECTERS. HAS BEEN ON O2 THROUGHOUT THE NIGHT WITH 02 @ 2L/MIN. PT HAS NOT BEEN NOTED TO COUGH WHILE USING OXYGEN.
[2020-02-13 06:12] LABS: ALBUMIN 2.5 gm/dl (3.1-4.5); CREATININE 2.05 mg/dL (0.55-1.02); POTASSIUM 5.3 mmol/L (3.5-5.1)
[2020-02-13 06:18] LABS: INTERNATIONAL NORM RATIO 2.7 (2.0-3.5)
[2020-02-13 06:23] LABS: BASO % 0.2 % (0.0-1.0); EOS # 0.3 10*3/uL (0.0-0.4); EOS % 2.7 % (1.0-4.0); HEMATOCRIT 24.9 % (37.0-47.0); HEMOGLOBIN 7.6 g/dl (12.0-16.0); LYMPH # 2.3 10*3/uL (1.3-4.4); LYMPH % 20.8 % (27.0-41.0); MEAN CELL VOLUME 89.9 fl (81.0-99.0); MEAN CORPUSCULAR HGB 27.4 pg (27.0-31.0); MEAN CORPUSCULAR HGB CONC 30.5 g/dl (33.0-37.0); MONO # 1.3 10*3/uL (0.1-1.0); MONO % 12.1 % (3.0-9.0); NEUT # 7.1 10*3/uL (2.3-7.9); NEUT % 63.8 % (47.0-73.0); PLATELET COUNT AUTOMATED 209 10*3/uL (130-400); RED BLOOD COUNT 2.77 10*6/uL (4.10-5.10); RED CELL DISTRI WIDTH 21.3 % (0-14.5); WHITE BLOOD COUNT 11.1 10*3/uL (4.8-10.8)
[2020-02-13 07:14] VITALS: BP 108/72
--- NOTE | 2020-02-13 07:25 | NUR ---
PHYSICAL THERAPY Patient seen this am for therapy visit and was just awakening supine in bed upon therapist arrival. Patient identified by name / and presented with continuous O2-2.5L via NC. Patient also observed with L LE anterior Tibia area redness / skin warm to touch which was communicated to Nursing. OT data entry assistant was present this morning for observation only this session as patient transfers supine to sit EOB, then sit to stand MOD A. Patient needed v/c for proper hand placement to improve transfer technique and ambulated 50'x 1, use of wh walker, CGA, while demonstrating slow, cautious gait pattern. Patient needed v/c to increase stride and improve "slouched" upright posture while returning to her w/c in activity room at table awaiting breakfast. Patient remained under [facility] staff Supervision and will continue per POC as tolerated, total treatment time 14 minutes. Michael Peterson, ENTRY LEVEL LAB TECHNICIAN
--- NOTE | 2020-02-13 07:40 | NUR ---
OT NOTE Prior to coming to the floor spoke with charge nurse Ruma and reported that therapy was coming to treat this pt. Pt was seen this A.M. 1:1 for 24 minute OT session with GARMENT CUTTER and nursing staff present for observation only. Upon arrival pt was supine in bed. Pt identified by name and and had no complaints at this time. Pt presented to therapy with continuous 2.5L-O2 via NC which she remained on throughout the entire session. Pt transferred supine to sit EOB with modA for assist with UB. While sitting EOB pt doffed gown with Wilbur, donned new shirt with Wilbur, and donned pants with modA. While completing task sitting EOB pt was able to maintain F-/F sitting balance throughout due to retrograde LOB while sitting without UE support. Sit to stand completed from bed level with modA and use of w/w for UE support. Upon inital rise pt had minor LOB backwards that required Wilbur to correct. Challenged pt's static standing tolernace needed for increased I in self care tasks and functional transfers. Pt was able to tolerate aprox 2-3 minutes at a time before sitting due to fatigue. Functional mobility was then completed back to the dining becker with CGA and use of w/w. There she was left sitting upright in the w/c in the dining becker under [facility] staff supervision. Continue with rec D/C plan to SNF. HENRI Harden
--- NOTE | 2020-02-13 08:27 | NUR ---
RECIEVED CALL FROM , REVIEWED URINALYSIS RESULT FROM YESTERDAY WELL THIS AM'S LABS INCLUDING WBC 11.1, HGB 7.6, BUN/CR 50/2.05 AND EVELATED POTASSIUM AT 5.3. STATES TO D/C MERREM, GIVE ONE BAG IV FLUIDS 1000ML NORMAL SALINE AT 100ML/HR X 1 BAG FOR NOW UNTIL FURTHER DISCUSSED WITH .
--- NOTE | 2020-02-13 08:51 | NUR ---
Treatment team meeting with Maday Lerma FRUIT OR NUT CROPS FARM MANAGER, RN, and ALICE Discussed pt's current status. Tentative discharge plan is for end of this week or beginning of next week with pt returning to her daughter's home resuming home health services.
[2020-02-13 09:02] VITALS: BP 124/54
--- NOTE | 2020-02-13 10:06 | NUR ---
Lengthy conversation with pt's daughter Evelyn Lazcano. Discussed pt's current status and considerations for discharge to home. Presented to Evelyn that a wheelchair would be of benefit to pt at home. Evelyn stated that the house is too small to accomodate a wheelchair. Discussed pt's continued need for O2 N/C. Evelyn confirmed that there would be approximately 4 hours in the AM that pt would be alone. This newspaper writer expressed concern about this and asked if private duty home care would be feasible. Evelyn state that pt would not be able to afford this. Continued to discuss concerns about pt discharge. It was decided that Evelyn will consider SNF for pt. This newspaper writer will plan on contacting Evelyn tomorrow AM, at which time pt's status will be reviewed and firm decision for discharge will be made. Evelyn expressed again at the end of the conversation that she and pt really want pt to return home if safe for pt.
--- NOTE | 2020-02-13 11:30 | NUR ---
P:DELUSIONAL THOUGHTS VOICED. "LOOKING FOR THOSE KIDS. 14 AND 18 YEAR OLD." THEN TOLD NURSE "I DON'T WON'T YOU TO GET INTO TROUBLE FOR PLANNING A ARRANGEMENT" DEPRESSED MOOD. I: ONE ON ONE, REDIRECTION AND REORIENTATION PROVIDED. R: EFFFECTIVE. PATIENT IS ALERT TO PERSON, PLACE AND SITUATION; ABLE TO VOICE NEEDS. INTERMITTANT CONFUSION; HAS MEMORY DEFICITS. MOOD IS SLIGHTLY ANXIOUS AND DEPRESSED. DENIES ANY HALLUCINATIONS, DELUSIONS, HI/SI OR PAIN. MEDICATION COMPLAINT. Q 15 MINUTE SAFETY CHECKS MAINTAINED. 1 PERSON ASSIST WITH ACTIVITIES OF DAILY LIVING, INCONTINENT OF BOWEL AND BLADDER. SET UP FOR MEALS WITH MUCH ENCOURAGEMENT TO EAT AND DRINK. INTERACTIVE WITH NURSE, OFFERING ACTIVITIES. PATIENT PLAYING COLOR BY NUMBERS WITH NURSE. VERY SOCIAL WITH STAFF. OXYGEN CHECKED FREQUENTLY. 97 % ON 2 LITERS. SEVERAL REMINDERS TO KEEP O2 ON. PATIENT'S O2 SATURATION DROPS WITH TAKING OFF. P: CONTINUE TO MONITOR MOOD, HALLUCINATION; PROVIDE ONE ON ONE FOR EMOTIONAL SUPPORT, REDIRECTION AND REORIENTATION NEEDED.
--- NOTE | 2020-02-13 13:30 | NUR ---
DR. HENRY ON UNIT TO ASSESS PATIENT.
--- NOTE | 2020-02-13 14:12 | NUR ---
OCCUPATIONAL THERAPY CO-SIGN I approve of the Occupational Therapy notes written above. LISA TAYLOR, OTR/L
--- NOTE | 2020-02-13 15:32 | NUR ---
DR. BULL AND DR. YANG ON UNIT TO ASSESS PATIENT. VERBAL ORDER FOR BUMEX MG IV NOW.
--- NOTE | 2020-02-13 16:40 | NUR ---
BP 127/58 WITH PULSE OF 61 PRIOR TO BUMEX 1MG IV PUSH OVER 2 MINUTES, RECHECK PB PRIOR TO DINNER 133/46 WITH PULSE OF 61.
--- NOTE | 2020-02-13 18:31 | NUR ---
PATIENT SHOWERED AND ASSISTED TO BED, ZEASORB POWER APPLIED TO ABDOMEN AND GROIN. PATIENT REFUSED HEEL PROTECTOR TO FEET. EDUCATION AND MUCH ENCOURAGEMENT PROVIDED TO GET PATIENT TO WEAR HEEL PROTECTOR. PATIENT CONTINUED TO REFUSE. PILLOW WEDGES APPLIED UNDER EACH LOWER LEG WITH FEET FLOATING. EDUCATION PROVIDED TO KEEP FEET FROM MATTRESS TO PREVENT SKIN BREAKDOWN. PATAIENT ECKNOWLEDGED. ONE ON ONE EFFECTIVE.
[2020-02-13 19:41] VITALS: BP 133/90
--- NOTE | 2020-02-13 19:57 | NUR ---
24 HR chart check completed.
--- NOTE | 2020-02-13 20:19 | NUR ---
PT UP TO BATHROOM WITH 1 ASSIST. CONTINENT OF URINE. SOB ON EXERTION. AUDIBLE EXPIRATORY WHEEZING. OCCASIONAL NON PRODUCTIVE COUGH. PT STATED, "I'M SO WORN OUT. GETTING IN & OUT OF BED TO USE THE BATHROOM. MY BOTTOM IS SO SORE." PT HAS WOUNDS ON HER BUTTOX & PERENIAL AREAS. ASK HER IF SHE WOULD LIKE A CATHETER PUT IN & SHE WAS AGREEABLE. DR BALES NOTIFIED & UPDATED & SAID NO. RECEIVED RESPIRATORY TREATMENT AT THIS TIME. PT IS ALERT & PLEASANT. HOB ELEVATED 30 DEGREES. HAS BEEN USING O2 @ 2L/MIN VIA NC.
--- NOTE | 2020-02-13 21:06 | NUR ---
PT ALERT TO PERSON, PLACE & TIME. TOOK HS MEDICATIONS WHOLE & MIXED IN VANILLA PUDDING. DID EAT WHOLE PUDDING CUP & DRANK 120 CC CRANBERRY JUICE. SPOKE WITH HER DAUGHTER ON THE PHONE & WAS PLEASANT. REQUESTED & MEDICATED WITH ROZEREM 8 MG PO @ 2051 FOR ASSISTANCE WITH SLEEP.
--- NOTE | 2020-02-14 05:33 | NUR ---
ROZEREM HAS BEEN EFFECTIVE & PT HAS SLEPT QUIETLY THROUGHOUT THE NIGHT PAST 2129.
[2020-02-14 06:23] LABS: BASO % 0.1 % (0.0-1.0); EOS # 0.5 10*3/uL (0.0-0.4); EOS % 4.7 % (1.0-4.0); HEMATOCRIT 26.4 % (37.0-47.0); LYMPH # 2.3 10*3/uL (1.3-4.4); LYMPH % 21.5 % (27.0-41.0); MEAN CORPUSCULAR HGB 27.6 pg (27.0-31.0); MEAN CORPUSCULAR HGB CONC 30.3 g/dl (33.0-37.0); MEAN PLATELET VOLUME 11.9 fl (9.6-12.3); MONO # 1.3 10*3/uL (0.1-1.0); MONO % 11.9 % (3.0-9.0); NEUT # 6.7 10*3/uL (2.3-7.9); NEUT % 61.3 % (47.0-73.0); PLATELET COUNT AUTOMATED 230 10*3/uL (130-400); RED CELL DISTRI WIDTH 21.5 % (0-14.5); WHITE BLOOD COUNT 10.9 10*3/uL (4.8-10.8)
[2020-02-14 06:28] LABS: INTERNATIONAL NORM RATIO 3.8 (2.0-3.5)
[2020-02-14 06:32] LABS: ALBUMIN 2.6 gm/dl (3.1-4.5); CREATININE 2.3 mg/dL (0.55-1.02); POTASSIUM 5.2 mmol/L (3.5-5.1); TOTAL PROTEIN 7.3 gm/dL (6.4-8.2)
--- NOTE | 2020-02-14 07:30 | NUR ---
PHYSICAL THERAPY Patient seen this am for therapy visit and was resting supine in bed upon therapist arrival. Patient identified by name / and presented with continuos O2-2L via NC. OT assistant manager quality management was also present this morning for observation only this session as patient transfers supine to sit EOB with MOD A x 2. Patient needed a minute to fully awaken before performing sit to stand from low bed surface, MIN A, then ambulating with use of walker, CGA, to bathroom, 10'x 1. Patient ambulated additional 30'x 1, wh walker, CGA, while demonstrating very slow amber, R side lean, "head down" posture and decreased stride. Patient able to correct "head up" posture following v/c, however still demonstrated mild R side lean with increased fatigue. Patient returned to activity room w/c voicing no new c/o's and remained at table under [facility] staff Supervision. Will continue per POC as tolerated, total treatment time 16 minutes. Michael Peterson, LINOLEUM FLOOR INSTALLER
[2020-02-14 07:33] VITALS: BP 109/64
--- NOTE | 2020-02-14 07:50 | NUR ---
OT NOTE Prior to coming to the floor spoke with charge nurse Ruma and reported that therapy was coming to the floor to treat this pt. Pt was seen this A.M. 1:1 for 25 minute OT session with SINGLE CORNER CUTTER and nursing staff present for observation only. Upon arrival pt was supine in bed. Pt identified by name and and had no complaints at this time. Pt presented to therapy with continuous 2L-O2 via NC which she remained on throughout the entire session. Pt transferred supine to sit EOB with modA X 2. While sitting EOB pt donned pants with modA, bra with Wilbur for snapping the back which pt was educated on compensatory technique, and shirt with SBA. Sit to stand completed from bed level with Wilbur and use of w/w for UE support. Functional mobility was then completed to the bathroom with CGA and use of w/w for UE support. There she transferred on/off standard commode with CGA and use of grab bar for UE support. Clothing management completed with Wilbur and toilet hygiene completed with CGA while standing. Pt then stood while washing her hands with CGA for safety. Pt was left sitting upright in the w/c in the dining becker under [facility] staff supervision. Continue with rec D/C plan to SNF. TATI Harden/Evelio
--- NOTE | 2020-02-14 09:51 | NUR ---
ZABRINAROMELIA [id number] Please refer to the physician's history and physical for past medical history, comorbid conditions, and allergies. Diagnosis: MAJOR DEPRESSION RECURRENT SEVERE Karthik Score: 18,LOW OR NO RISK WOUND DESCRIPTIONS: Wound #1 left proximal arm and wound #2 right forearm skin intact. Bruising noted to these areas. No drainage noted at time of assessment. Wound # 3 bilateral feet wound #7 left heel patient denied pain at time of assessment. Wound Number: 4 Location of the wound: right upper arm Type of wound: skin tear Thickness: Partial Size: 0.8cm x 0.7cm x 0.1cm Tunneling: none Undermining: none Sinus Tract: none Presence of Exudate: Serous Amount: Light Color: Red Odor: None Periwound Skin Appearance: Erythema Wound edges: approximated Pain (associated with wound): denied at time of assessment Wound #5 left buttocks, wound #6 left upper buttocks/hip skin intact at time of assessment. No drainage or open area noted. Wound Number: 8 Location of the wound: right upper buttocks/hip Type of wound: Thickness: Partial Size: 0.5cm x 0.5cm x 0.1cm Tunneling: none Undermining: none Sinus Tract: none Presence of Exudate: Serous Amount: Light Color: Red Odor: None Periwound Skin Appearance: Erythema Wound edges: approximated Pain (associated with wound): denied at time of assessment Wound Number: 9 Location of the wound: left forearm distal Type of wound: skin tear Thickness: Partial Size: 1.5cm x 1.5cm x 0.1cm Tunneling: none Undermining: none Sinus Tract: none Presence of Exudate: Serous Amount: Light Color: Red Odor: None Periwound Skin Appearance: Erythema Wound edges: approximated Pain (associated with wound): denied at time of assessment. Surface the patient is resting on: Proform SKIN PREVENTION RECOMMENDATION: 1. Pressure redistribution support surface as appropriate 2. Elevate heels 3. Remove boots/TEDS every shift and reapply 4. Head of bed 30 degrees as tolerated 5. Assess nutrition and hydration 6. Manage moisture 7. Avoid the use of containment devices while in bed 8. Use absorptive products on surfaces limit layers of linens on bed 9. Turn and reposition every 1-2 hours in bed and every 1 hour in chair as tolerated 10. Weight shifts every 15 minutes while up in chair 11. Offloading with pillows or device to keep heels elevated off bed 12. Monitor skin at least every shift 13. Inspect under medical devices twice a day WOUND TREATMENT RECOMMENDATIONS: D/C stage 2 guidelines x 3. Cleanse coccyx area with soap and water. Apply calazime every shift and prn soiling. Partial thickness guidelines to right upper arm, and left forearm distal: Cleanse with nss apply sureprep around the wound allow to dry apply hydrogel to wound bed and cover with optifoam gentle change every 2 days and prn soiling.
--- NOTE | 2020-02-14 10:10 | NUR ---
Dr. Hernandez notified of wound care recommendations.
--- NOTE | 2020-02-14 11:19 | NUR ---
Spoke with Kimberlyn from [facility] in regards to pt's PASRR request. Provided Kimberlyn with pt information as Kimberlyn in not permitted in the hospital to complete a face to face assessment with pt at this time.
--- NOTE | 2020-02-14 12:04 | NUR ---
Spoke with pt's daughter Evelyn about discharge plan for pt. Evelyn remains undecided but is leaning toward bringing pt home. Explained to Evelyn that we are unable to wait till day of discharge to make referrals to [facility], should that be what Evelyn decides. Received permission from Evelyn to make referrals to local NFs. Evelyn stated that she does not have a preference other than it be in [facility]. Should Evelyn decide for pt to return to Evelyn's home, she would prefer [facility] for home O2 and [facility].
--- NOTE | 2020-02-14 15:12 | NUR ---
Shift chart check completed.
--- NOTE | 2020-02-14 15:57 | NUR ---
ROMELIA GERBER [id number] Please refer to the physician's history and physical for past medical history, comorbid conditions, and allergies. Diagnosis: MAJOR DEPRESSION RECURRENT SEVERE Karthik Score: 18,LOW OR NO RISK WOUND DESCRIPTIONS: Wound Number: 1 Location of the wound: left forearm proximal Type of wound: skin tear Thickness: Partial Size: 1.5cm x 1.5cm x 0.1cm Tunneling: none Undermining: none Sinus Tract: none Presence of Exudate: Serous sanguineous Amount: Light Color: Red Odor: None Periwound Skin Appearance: Erythema Wound edges: approximated Pain (associated with wound): denied at time of assessment How does patient state this happened? Wound #2 right forearm distal resolved. No open area or drainage noted at time of assessment. Wound #3 bilateral feet discoloration. Wound Number: 4 Location of the wound: Right upper arm Type of wound: skin tear Thickness: Partial Size: 1cm x 0.6cm x 0.1cm Tunneling: none Undermining: none Sinus Tract: none Presence of Exudate: Serous sanguineous Amount: Light Color: Red Odor: None Periwound Skin Appearance: Erythema Wound edges: approximated Pain (associated with wound): denied at time of assessment Wound Number: 5 Location of the wound: left coccyx buttock Type of wound: Thickness: Partial Size: 0.5cm x 0.5cm x 0.1cm Tunneling: none Undermining: none Sinus Tract: none Presence of Exudate: Serous Amount: Light Color: Red Odor: None Periwound Skin Appearance: Erythema Wound edges: approximated Pain (associated with wound): denied at time of assessment Wound #6 left upper buttock/hip resolved. No open area or drainage at time of assessment. Wound #7 left heel red and blanchable at time of assessment. Wound #8 right buttock/hip and wound #9 left forearm distal resolved. No open area or drainage noted at time of assessment. Surface the patient is resting on: Proform SKIN PREVENTION RECOMMENDATION: 1. Pressure redistribution support surface as appropriate 2. Elevate heels 3. Remove boots/TEDS every shift and reapply 4. Head of bed 30 degrees as tolerated 5. Assess nutrition and hydration 6. Manage moisture 7. Avoid the use of containment devices while in bed 8. Use absorptive products on surfaces limit layers of linens on bed 9. Turn and reposition every 1-2 hours in bed and every 1 hour in chair as tolerated 10. Weight shifts every 15 minutes while up in chair 11. Offloading with pillows or device to keep heels elevated off bed 12. Monitor skin at least every shift 13. Inspect under medical devices twice a day WOUND TREATMENT RECOMMENDATIONS: Continue current orders.
--- NOTE | 2020-02-14 16:00 | NUR ---
MEDIPORT DRESSING CHANGED AT THIS TIME, PATIENT TOLERATED WELL. CATHETER REAMINS AT 12 CM WITH SECUREMENT DEVICE STILL INTACT. FLUSHED WITH 12CC OF STERILE NORMAL SALINE, BLOOD RETURN NOTED. SITE ASYMPTOMATIC.
--- NOTE | 2020-02-14 16:20 | NUR ---
DR. TAMEZ ON FLOOR TO ASSESS PATIENT.
--- NOTE | 2020-02-14 16:29 | NUR ---
NO ADVERSE MOODS OR BEHAVIORS NOTED THIS SHIFT. ALERT AND ORIENTED X3. DENIES SI/HI, HALLUCINATIONS, OR PAIN. NO S/S OF DISTRESS NOTED. NO S/S OF DELUSIONAL THOUGHT PROCESS NOTED. PATIENT STATES MOOD IS "VERY GOOD TODAY". VERY PLEASANT WITH INTERACTION. PATIENT UTILIZING WHEELCHAIR DUE TO UNSTEADY GAIT. GERICHAIR UTILIZED TO HELP ELEVATE EXTREMITIES. INTERACTING AND PARTICIPATING. EATING AND DRINKING ADEQUATELY. PT REFUSED LUNCH, SLEPT. PT STATED THAT SHE DID NOT SLEEP WELL LAST NIGHT BECAUSE SHE COULD NOT GET COMFORTABLE. ONE TO TWO ASSIST WITH TRANSFERING, ADLS, CARE, AND TOILETING DUE TO UNSTEADY GAIT. PATIENT COOPERATIVE WITH WOUND DRESSING CHANGES AND MIDLINE DRESSING CHANGE. PT CONTINUES TO HAVE A NONPRODUCTIVE MOIST COUGH. EXPIRATORY WHEEZE, CLEARS SLIGHTLY WITH COUGH. 2L NC O2 CONTINUOUS. MED COMPLIANT WITH EDUCATION PROVIDED ON EACH. LARGE BM. FALLING STAR PROGRAM IN PLACE. Q15 MINUTE CHECKS MAINTAINED FOR SAFETY.
--- NOTE | 2020-02-14 18:52 | NUR ---
PT ALERT AND ORIENTED TO PERSON. QUIET T/O DAY. LIMITED INTERACTION WITH PEERS AND STAFF. PT WILL INTERACT APPROPRIATELY WHEN VERBALLY CUED AND ENCOURAGED TO EXPRESS THOUGHT. PT DENIES DEPRESSED MOOD OR SADNESS. PT DOES EXPRESS SOME FRUSTRATION WITH THE POSSIBILITY OF MOVING TO [place]. PT IS CALM AND COOPERATIVE WITH ASSESSMENTS. CONTINENT OF BOWEL AND BLADDER. MEDICATION COMPLIANT WITHOUT DIFFICULTY. Q 15 MIN MONITORING FOR SAFETY.
[2020-02-14 20:00] VITALS: BP 134/64
--- NOTE | 2020-02-14 21:45 | NUR ---
Pt Alert Person Place and general time, medication compliant this evening with not si/hi or delusions noted. Pt ate snack and interacted with this nurse appropriately, falling asleep in chair when not interacting. Pt legs elevated in Ambar chair with no complaint of pain unless leg is touched, no seeping noted, left leg remains red and warm to touch. Pt ambulated with 2 assist to toilet from bathroom doorway, left leg had difficulty tolerating weight due to tender to touch. Pt requested breathing treatment and had compliant of upset stomach. Respiratory notified and maalox given per prn orders. Continue to monitor 15 min checks. Pt aware of call light, reports will call if needed. Requested no shower this evening due wanting to lay in bed. Will reapproach in the morning.
--- NOTE | 2020-02-15 03:52 | NUR ---
Upon discharge recommend patient to follow up for wound care in outpatient setting continue current wound care orders at discharging facility.
--- NOTE | 2020-02-15 05:47 | NUR ---
Patient slept approx. 8 hours throughout shift. Q 15 minute safety checks continued and maintained.
[2020-02-15 06:00] LABS: BASO % 0.2 % (0.0-1.0); EOS # 0.8 10*3/uL (0.0-0.4); EOS % 7.6 % (1.0-4.0); HEMATOCRIT 26.9 % (37.0-47.0); HEMOGLOBIN 8.3 g/dl (12.0-16.0); LYMPH # 2.5 10*3/uL (1.3-4.4); LYMPH % 23.7 % (27.0-41.0); MEAN CORPUSCULAR HGB 27.8 pg (27.0-31.0); MEAN CORPUSCULAR HGB CONC 30.9 g/dl (33.0-37.0); MEAN PLATELET VOLUME 11.4 fl (9.6-12.3); MONO # 1.3 10*3/uL (0.1-1.0); MONO % 12.5 % (3.0-9.0); NEUT # 5.7 10*3/uL (2.3-7.9); NEUT % 55.6 % (47.0-73.0); PLATELET COUNT AUTOMATED 241 10*3/uL (130-400); RED BLOOD COUNT 2.99 10*6/uL (4.10-5.10); RED CELL DISTRI WIDTH 21.4 % (0-14.5); WHITE BLOOD COUNT 10.3 10*3/uL (4.8-10.8)
[2020-02-15 06:23] LABS: ALBUMIN 2.5 gm/dl (3.1-4.5); CREATININE 2.49 mg/dL (0.55-1.02); POTASSIUM 5.4 mmol/L (3.5-5.1); TOTAL PROTEIN 7.4 gm/dL (6.4-8.2)
[2020-02-15 06:31] LABS: INTERNATIONAL NORM RATIO 4.9 (2.0-3.5)
--- NOTE | 2020-02-15 06:36 | NUR ---
DR. BALES NOTIFIED OF INR OF CRITICAL LAB VALUE OF 4.9
--- NOTE | 2020-02-15 07:20 | NUR ---
PHYSICAL THERAPY Patient seen this am for therapy visit and was sitting semi reclined in activity room Ambar chair upon therapist arrival. Patient identified by name / and was very pleasant this morning, voicing no c/o's pain. Patient however presented with increased B LE edema and had her feet elevated on a pillow for comfort. OT legal support assistant was present for observation only this session as patient performed several sit to stand transfers at rail, tolerting static standing to improve her posture / standing tolerance. First trial tolerated 100 seconds, second trial 2 minutes and third trial 3 minutes with B UE handrail support, CGA. Patient was also on continuos O2-2L via NC and demonstrated mild fatigue before returning to activity room Ambar chair. Patient remained in chair with LE's elevated on pillow, under [facility] staff Supervision awaiting breakfast. Will continue per POC as tolerated, total treatment time 16 minutes. Michael Peterson, PICK UP AND DELIVERY DRIVER
--- NOTE | 2020-02-15 07:25 | NUR ---
OT NOTE Prior to coming to the floor spoke with charge nurse Leona and reported that therapy would be coming to the floor to treat this pt. Pt was seen this A.M. 1:1 for 15 minute OT session with AIRCRAFT TOOL MAKER and nursing staff present for observation only. Upon arrival pt was sitting upright in the diane chair in the dining becker. Pt identified by name and and had no complaints at this time. Pt presented to therapy with continuous 2L-O2 via NC which she remained on throughout the entire session. Pt was taken out into the hallway where she completed multiple sit to stand transfers from chair level with CGA and use of hand rail for UE support. Challenged pt's static standing tolerance needed for increased I self care tasks and functional transfers. Pt was able to tolerate aprox 2-3 minutes at a time before sitting due to fatigue. Pt had no complaints of pain while weight bearing on LLE. Pt was left sitting upright in the diane chair with BLE's elevated in the dining becker under [facility] staff supervision. Continue with rec D/C plan to SNF. HENRI Harden
--- NOTE | 2020-02-15 07:28 | NUR ---
DR YANG CALLED IN AND WAS UPDATED ON PTS LABS, PER DR YANG HE WILL BE HERE IN A LITTLE BIT, NO FURTHER ORDERS AT THIS TIME.
[2020-02-15 07:32] VITALS: BP 122/60; BP 133/52
--- NOTE | 2020-02-15 07:48 | NUR ---
Patient eating breakfast in dining room with peers. Respirations easy and regular. Vital signs stable, pox 95% 2l via NC. No overt distress. Update given to ABRAM Mensah
--- NOTE | 2020-02-15 08:10 | NUR ---
Treatment Plan meeting held with Dr. Rowe, RN, EMPLOYMENT EVALUATOR/CASE MANAGER-S and Wage And Salary Administrator. Plan for discharge at the end of the week, possible next week. PASRR completed and pending. Daughter is still undecided on discharge plan.
--- NOTE | 2020-02-15 09:18 | NUR ---
WITH PODIATRY ON UNIT TO SEE PT AT THIS TIME, ASSESSED PT RE: LLE EDEMA, REDNESS/WARMTH. MADE AWARE PT HAD ULTRASOUND 02/07 WHICH WAS NEGATIVE FOR LLE DVT. REQUESTS PT KEEP LEGS ELEVATED ABOVE HEART LEVEL MUCH POSSIBLE X NEXT 24 HOURS AND WEARS HEEL PROTECTOR BOOTS. PT STATED TO DOCTOR SHE DID NOT WANT TO WEAR THEM. PT HAS BEEN REFUSING BOOTS. PROVIDED PT EDUCATION RE: IMPORTANCE OF WEARING BOOTS TO PROTECT HEELS. PT AGREED TO TRY THEM AGAIN AT THIS TIME. [facility], HEEL PROTECTOR BOOTS APPLIED. ADVISED NURSING TO OFF LOAD HEELS WITH PILLOWS IF PT REFUSES BOOTS.
--- NOTE | 2020-02-15 10:05 | NUR ---
PT OFF THE UNIT FROM [phone] FOR ULTRASOUND, ESCORTED BY RN AND TRASNPORT STAFF.
--- NOTE | 2020-02-15 10:25 | NUR ---
DR YANG ON UNIT TO ASSESS PT, UPDATE PROVIDED. NO FURTHER ORDERS AT THIS TIME.
--- NOTE | 2020-02-15 12:04 | NUR ---
Referral to [facility] attn: Fina [phone].
--- NOTE | 2020-02-15 12:36 | NUR ---
DR HENRY AND DR YANG ON UNIT TO ASSESS PT, UPDATE PROVIDED. DR RIVERA QUESTIONING PT XIFAXAN BEING DC, ADVISED THAT IT LOOKS LIKE XIFAXAN FELL OFF MAR AFTER 7 DAYS ALSO ADVISED THAT PT IS CURRENTLY ON NEOMYCIN PER DR ROMERO ORDERS FOR ELEVATED AMMONIA LEVEL. PER DR YANG PLEASE CALL DR BUCKNER AND CLARIFY IF HE WISHES TO CONTINUE NEOMYCIN OR CAN SWITCH TO XIFAXAN. SPOKE WITH DR BUCKNER AND HE DOES NOT HAVE A PREFERENCE. SPOKE WITH DR YANG AND NEW ORDERS RECEIVED TO DC NEOMYCIN AND RESTART XIFAXAN.
--- NOTE | 2020-02-15 12:53 | NUR ---
DR BULL ON UNIT TO ASSESS PT, UPDATE PROVIDED.
--- NOTE | 2020-02-15 15:50 | NUR ---
SPOKE WITH KIMBERLEE MOTA, ADVSIED OF PT NEEDING A BREATHING TX DUE TO SOB, COUGH AND PER PT REQUEST. PER KIMBERLEE SHE WILL BE UP SHORTLY.
--- NOTE | 2020-02-15 15:57 | NUR ---
NO ADVERSE MOODS OR BEHAVIORS NOTED AT THIS TIME. PT ALERT TO PERSON, AND PLACE, AND SOMETIMES TIME, CONFUSION AND SHORT TERM MEMORY DEFICITS NOTED. PT CALM, MOOD IS STABLE. PT MED COMPLIANT WITHOUT DIFFICULTY, MED EDUCATION PROVIDED. PT DENIES ANY SUICIDAL THOUGHTS. PT UP TO A GERICHAIR D/T INABILITY TO AMBUALTE INDEPENDENTLY AND NEEDING TO ELEVATE LOWER EXTRMITIES. PT CONTINENT OF BOWEL AND BLADDER, EPISODES OF INCONTINENCE NOTED, CARE PROVIDED NEEDED. PT REQUIRES 1-2 STAFF ASSIST FOR TRANSFERS AND CARE. PLAN IS TO MONITOR PT BEHAVIORS ON Q15 MIN SAFETY CHECKS, ENCOURAGE MED COMPLIANCE AND PROVIDE MED EDUCATION, PROVIDE EMOTIONAL SUPPORT AND 1:1 FOR PT TO VOICE FEELINGS.
--- NOTE | 2020-02-15 17:21 | NUR ---
SPOKE WITH DR BARBOZA AT [phone] RE: CLARIFICATION NEEDED FOR TUBIGRIP ORDER TO PT BLE. ORDER CLARIFIED AND PT IS TO GET 2 TUBIGRIP ON LEFT LEG, IF PT WILL TOELRATE, AND 1 TO THE RIGHT LEG. PER THIS MAY REMAIN ON FOR AT LEAST THE FIRST 24 HOURS WITHOUT REMOVING AND HE WILL BE IN IN THE MORNING TO SEE THE PT. NO FURTHER ORDERS AT THIS TIME.
--- NOTE | 2020-02-15 17:45 | NUR ---
DR BARBOZA CALLED IN AND ADVISED NOT TO APPLY TUBIGRIP AT THIS TIME, NEW ORDERS RECEIVED FOR BLE ARTERIAL ULTRSOUND, ONCE ULTRASOUND IS COMPLETED HE WILL DECIDE IF THE TUBIGRIP NEEDED, IN THE MEANTIME CONTINUE TO ELEVATE LOWER EXTREMITIES. NO ADDITIONAL ORDERS AT THIS TIME.
[2020-02-15 20:00] VITALS: BP 130/62
--- NOTE | 2020-02-15 23:39 | NUR ---
P-CONFUSION I-REDIRECTION WITH 1:1 THERAPEUTIC INTERVENTIONS AND PRESENT REALITY. EDUCATE AND ENCOURAGE MEDICATION COMPLIANCE R-PATIENT MEDICATION COMPLIANT AT HS. PATIENT SHOWERED THIS SHIFT PER PATIENT REQUEST. PATIENT UP IN GERICHAIR WITH SEAT CUSHION AND BILATERAL HEEL PROTECTORS. BILATERAL HEELS ELEVATED WITH PILLOWS. LEFT LOWER EXTREMITY WITH +3 EDEMA, REDDENED, AND WARM TO TOUCH. PATIENT CONTINUES ON 2L O2 VIA NASAL CANNULA AND TOLERATING WITHOUT DIFFICULTY. RIGHT UPPER EXTREMITY MIDLINE INTACT WITH NO REDNESS, EDEMA, OR ELEVATED TEMPERATURE AT SITE. P-CONTINUE TO ENCOURAGE MEDICATION COMPLIANCE, CONTINUE TO PRESENT REALITY, ENCOURAGE GROUP THERAPY WHILE AWAKE
--- NOTE | 2020-02-16 06:19 | NUR ---
PATIENT SLEPT 6 HOURS OF INTERRUPTED SLEEP THROUGHOUT SHIFT. Q 15 MINUTE CHECKS MAINTAINED. 24 HR chart check completed.
[2020-02-16 06:56] LABS: BASO % 0.4 % (0.0-1.0); EOS # 0.9 10*3/uL (0.0-0.4); EOS % 8.3 % (1.0-4.0); HEMATOCRIT 25.9 % (37.0-47.0); HEMOGLOBIN 7.9 g/dl (12.0-16.0); LYMPH # 3.3 10*3/uL (1.3-4.4); LYMPH % 29.6 % (27.0-41.0); MEAN CELL VOLUME 90.6 fl (81.0-99.0); MEAN CORPUSCULAR HGB 27.6 pg (27.0-31.0); MEAN CORPUSCULAR HGB CONC 30.5 g/dl (33.0-37.0); MEAN PLATELET VOLUME 11.4 fl (9.6-12.3); MONO # 1.3 10*3/uL (0.1-1.0); MONO % 11.4 % (3.0-9.0); NEUT # 5.6 10*3/uL (2.3-7.9); NEUT % 49.9 % (47.0-73.0); PLATELET COUNT AUTOMATED 233 10*3/uL (130-400); RED BLOOD COUNT 2.86 10*6/uL (4.10-5.10); RED CELL DISTRI WIDTH 21.4 % (0-14.5); WHITE BLOOD COUNT 11.1 10*3/uL (4.8-10.8)
[2020-02-16 07:08] LABS: INTERNATIONAL NORM RATIO 4.4 (2.0-3.5)
[2020-02-16 07:11] LABS: ALBUMIN 2.5 gm/dl (3.1-4.5); CREATININE 2.84 mg/dL (0.55-1.02); PHOSPHOROUS 5.4 mg/dL (2.5-4.9); POTASSIUM 5.4 mmol/L (3.5-5.1); TOTAL PROTEIN 7.4 gm/dL (6.4-8.2)
--- NOTE | 2020-02-16 07:15 | NUR ---
PHYSICAL THERAPY Patient seen this am for therapy visit and was sitting semi reclined in activity room Ambar chair upon therapist arrival. Patient identified by name / and presented with continuos O2-2L via NC. OT event marketing assistant was also present for observation only this session as patient voices no new c/o's at this time. Patient transfers sit to stand MIN/CGA at rail, demonstratieng improved upright posture. Patient ambulates with use of wh walker, CGA, 35'x 1, demonstrating very slow amber, decreased stride and needed v/c to keep her head up to improve stride / safety. Patient returned to her Ambar chair with mild fatigue and reamined in semi reclined position with her B LE's elevated on pillow for edema control / comfort, under [facility] staff Supervision. Will continue per POC as tolerated, total treatment time 14 minutes. Michael Peterson, PUBLIC TRANSIT SPECIALIST
--- NOTE | 2020-02-16 07:30 | NUR ---
OT NOTE Prior to coming to the floor spoke to charge nurse Laurie and reported that therapy was coming to the floor to treat this pt. Pt was seen this A.M. 1:1 for 15 minute OT session with AVIATION MANAGER and nursing staff present for observation only. Upon arrival pt was sitting reclined in the diane chair with BLE's elevated in the dining becker. Pt identified by name and and had no complaints at this time. Pt presented to therapy with continuous 2L-O2 via NC which she remained on throughout the entire session. Pt was taken out into the hallway where she completed multiple sit to stand transfers from chair level with CGA and use of hand rail for UE support. Challenged pt's static standing tolerance needed for increased I in self care tasks and functional transfers, pt was able to tolerate aprox 3 minutes at a time before sitting due to fatigue. Functional mobility was then completed to her room with CGA and use of w/w for UE support. Pt was left sitting reclined in the diane chair in the dining becker under [facility] staff supervision with BLE's elevated. Continue with rec D/C plan to SNF. TATI Harden/Evelio
[2020-02-16 07:44] VITALS: BP 124/62
--- NOTE | 2020-02-16 07:47 | NUR ---
Patient eating breakfast in dining room with peers. Respirations easy and regular, POX 98% 2l via NC. Vital signs stable. No overt distress. [facility]
--- NOTE | 2020-02-16 09:15 | NUR ---
PT OFF FLOOR WITH A NURSE TO GO TO RADIOLOGY
--- NOTE | 2020-02-16 09:45 | NUR ---
DR SCHAFER ON UNIT TO ASSESS PT. UPDATED DR PT IS IN RADIOLOGY AT THIS TIME. UPDATED DR ON ALL RECENT BLOODWORK. STATED SHE IS WAITING TO HEAR BACK FROM DR HENRY ON IF THE PATIENT IS A CANIDATE FOR DIALYSIS. STATED SHE WILL BE BACK TO CHECK ON PT.
--- NOTE | 2020-02-16 09:50 | NUR ---
PT BACK FROM RADIOLOGY
--- NOTE | 2020-02-16 11:48 | NUR ---
Spoke with pt's daughter Evelyn who stated that she had decided that pt will return to Evelyn's home upon [facility] discharge. Will discuss with the treatment team the possibility of hospice consult vs home health agency.
--- NOTE | 2020-02-16 13:45 | NUR ---
DR HENRY AND DR SCHAFER ON UNIT TO ASSESS PT. PT STATED SHE FELT NAUSEATED AND DR HENRY TO PLACE NEW ORDERS FOR PATIENT.
--- NOTE | 2020-02-16 14:47 | NUR ---
OCCUPATIONAL THERAPY CO-SIGN I approve of the Occupational Therapy notes written above. LISA TAYLOR, OTR/L
--- NOTE | 2020-02-16 14:59 | NUR ---
PHYSICAL THERAPY CO-SIGN I approve of the Physical Therapy notes written above. NURYS SULLIVAN PT, DPT
--- NOTE | 2020-02-16 18:10 | NUR ---
PODIATRY ON UNIT APPLYING TUBI BRICKLAYER'S ASSISTANT TO PATIENTS LEGS.
[2020-02-16 20:00] VITALS: BP 120/58
--- NOTE | 2020-02-16 22:06 | NUR ---
PATIENT ALERT WITH PERIODS OF CONFUSION. 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 PATIENT PROVIDED REDIRECTION WITH 1:1 THERAPEUTIC INTERVENTIONS AND PRESENTED REALITY. PATIENT EDUCATED AND ENCOURAGED WITH MEDICATION COMPLIANCE. PATIENT MEDICATION COMPLIANT AT HS. PATIENT UP IN GERICHAIR WITH SEAT CUSHION AND BILATERAL HEEL PROTECTORS. BILATERAL HEELS ELEVATED WITH PILLOWS. PATIENT WITH TUBIGRIPS ON TO BILATERAL LOWER EXTREMITIES AND TOLERATING WITHOUT DISCOMFORT AT THIS TIME. PATIENT CONTINUES ON 2L O2 VIA NASAL CANNULA AND TOLERATING WITHOUT DIFFICULTY. RIGHT UPPER EXTREMITY MIDLINE INTACT WITH NO REDNESS, EDEMA, OR ELEVATED TEMPERATURE AT SITE. PATIENT PROVIDED NOURISHMENT AND FLUIDS AT HS. PATIENT TOILETED PRIOR TO GOING TO BED.
[2020-02-17 06:05] LABS: BASO % 0.4 % (0.0-1.0); EOS % 9.3 % (1.0-4.0); HEMATOCRIT 24.9 % (37.0-47.0); HEMOGLOBIN 7.8 g/dl (12.0-16.0); LYMPH # 2.8 10*3/uL (1.3-4.4); LYMPH % 26.5 % (27.0-41.0); MEAN CELL VOLUME 89.6 fl (81.0-99.0); MEAN CORPUSCULAR HGB 28.1 pg (27.0-31.0); MEAN CORPUSCULAR HGB CONC 31.3 g/dl (33.0-37.0); MEAN PLATELET VOLUME 11.4 fl (9.6-12.3); MONO # 1.1 10*3/uL (0.1-1.0); MONO % 10.3 % (3.0-9.0); NEUT # 5.6 10*3/uL (2.3-7.9); NEUT % 53.1 % (47.0-73.0); PLATELET COUNT AUTOMATED 228 10*3/uL (130-400); RED BLOOD COUNT 2.78 10*6/uL (4.10-5.10); RED CELL DISTRI WIDTH 21.5 % (0-14.5); WHITE BLOOD COUNT 10.6 10*3/uL (4.8-10.8)
[2020-02-17 06:13] LABS: ALBUMIN 2.3 gm/dl (3.1-4.5); CREATININE 3.01 mg/dL (0.55-1.02); PHOSPHOROUS 5.9 mg/dL (2.5-4.9); POTASSIUM 5.6 mmol/L (3.5-5.1)
[2020-02-17 06:14] LABS: INTERNATIONAL NORM RATIO 4.1 (2.0-3.5)
--- NOTE | 2020-02-17 06:21 | NUR ---
DR BALES UPDATED ON [phone]. PATIENT RIGHT UPPER EXTREMITY AROUND MIDLINE SITE REDDENED, HOT TO TOUCH, AND PATIENT WITH COMPLAINT OF DISCOMFORT AND GRIMACING WHENN ASSESSING SITE. ORDER TO REMOVE MIDLINE. THIS NURSE LET DR BALES KNOW PATIENT WAS A DR HENRY PATIENT AND DR BALES STATED "THAT'S FINE". REVIEWED RECENT LABS AND IV ANTIBIOTIC THERAPEY COMPLETION WITH DR BALES.
--- NOTE | 2020-02-17 06:50 | NUR ---
RIGHT UPPER EXTREMITY MIDLINE AND TEGADERM REMOVED. PRESSURE DRESSING APPLIED. MIDLINE CATHETER INTACT ON REMOVAL. COOL COMPRESS APPLIED AT SITE. RIGHT HAND WITH +2 PITTING EDEMA. RIGHT UPPER EXTREMITY ELEVATED ON PILLOW. ABDOMINAL GIRTH ON 02/16/20 IN AM 48INCHES AND WEIGHT 189.7. ABDOMINAL GIRTH ON 02/16 IN AM 50 INCHES AND WEIGHT 189.5. PATIENT TOLERATING TUBIGRIP TO BILATERAL LOWER EXTREMITIES AND BILATERAL LOWER EXTREMITIES ELEVATED. PATIENT TOLERATING SEAT CUSHION WHILE UP IN [facility]. PATIENT RIGHT LATERAL ABDOMEN TAUNT, FIRM, AND WITH +1-+2 EDEMA. PATIENT NOTED WITH INTERMITTENT JERKY MOVEMENTS IN BILATERAL UPPER AND LOWER EXTREMITIES THIS AM
--- NOTE | 2020-02-17 07:30 | NUR ---
AKASH ANDERSEN CORRECTIONS IDENTIFICATION TECHNICIAN ON UNIT TO ASSESS PT, UPDATE PROVIDED.
[2020-02-17 07:49] VITALS: BP 120/56
--- NOTE | 2020-02-17 10:14 | NUR ---
DR BARBOZA-PODIATRY ON UNIT TO ASSESS PT. TUBIGRIPS REMOVED AT THIS TIME. PER HE WILL BE BACK IN AN HOUR OR SO TO REASSESS.
--- NOTE | 2020-02-17 10:27 | NUR ---
dr patel updated on pt condition and dr waldrop to update dr quiñones.
--- NOTE | 2020-02-17 10:59 | NUR ---
CALL PLACED TO DR BULL. UPDATED ON PT CONDITION. NEW ORDERS RECEIVED.
--- NOTE | 2020-02-17 12:35 | NUR ---
ESTEE FROM THE 4TH FLOOR CAME TO UNIT TO USE ULTRASOUND MACHINE TO INSERT AN IV INTO THE PATIENTS LEFT ARM. PROCEDURE TOOK APPROXIMATELY 10 MINUTES. PATEIENT TOLERATED WELL. IV FLUSHED WELL, HOWEVER NO BLOOD RETURN WAS NOTED. PER ESTEE IV WAS IN THE CORRECT SPACE PER IMAGING. PATIENT REPORTS SHE HAS NO DISCOMFORT.
--- NOTE | 2020-02-17 14:15 | NUR ---
PT TOLERATED D50 AND INSULIN WELL. WILL CONTINUE TO MONITOR BLOOD SUGAR LEVELS.
--- NOTE | 2020-02-17 14:56 | NUR ---
SPOKE WITH DR BULL AT [phone], ADVISED THAT PT IS UNABLE TO TOLERATE THE KAYEXELATE, SHE TOOK 2 DRINKS AND THEN BEGAN VOMITING. PER DR BULL THATS OK SHE DOES NOT HAVE TO DRINK ANYMORE. NO FURTHER ORDERS AT THIS TIME.
--- NOTE | 2020-02-17 17:10 | NUR ---
PT CONSUMED 1/2 OF HER CONTAINER OF APPLESAUCE ON HER DINNER TRAY AND THEN BEGAN COMPLAINING OF NAUSEA AND HAD 1 MEDIUM EMESIS. PT MEDICATED WITH PO PRN ZOFRAN PER ORDERS.
--- NOTE | 2020-02-17 17:52 | NUR ---
ZOFRAN EFFECTIVE NO FURTHER EMESIS NOTED.
--- NOTE | 2020-02-17 17:54 | NUR ---
DR HENRY ON UNIT TO ASSESS PT, UPDATE PROVIDED.
--- NOTE | 2020-02-17 18:02 | NUR ---
DR BULL ON UNIT TO ASSESS PT, UPDATE PROVIDED. DR BULL SPOKE TO PT RE: PT STARTING DIALYSIS AND HAVING A DIALYSIS CATHETER PLACED ON WEDNESDAY. NEW ORDERS RECEIVED FOR FLUIDS.
[2020-02-17 20:00] VITALS: BP 105/79
--- NOTE | 2020-02-17 21:52 | NUR ---
Patient alert with periods of confusion. Nemory deficits noted. Mood calm,pleasant,and cooperative. Patient compliant with HS medications without any difficulty. Provided 1:1 for emotional support. Redirected/reoriented when needed. Plan to continue to encourage medication compliance. Also continue to provide emotional support and redirect/reorient when needed/appropriate. Will continue to monitor moods/behaviors. Q 15 minute safety checks continued and maintained. See [facility] flowsheet for further documentation.
--- NOTE | 2020-02-18 06:01 | NUR ---
Patient slept approx. 6.5 hours throughout shift with a few interruptions. Q 15 minute safety checks continued and maintained.
[2020-02-18 06:08] LABS: BASO # 0.1 10*3/uL (0.0-0.1); BASO % 0.4 % (0.0-1.0); EOS % 8.8 % (1.0-4.0); HEMATOCRIT 25.7 % (37.0-47.0); HEMOGLOBIN 7.8 g/dl (12.0-16.0); LYMPH # 2.9 10*3/uL (1.3-4.4); LYMPH % 25.2 % (27.0-41.0); MEAN CORPUSCULAR HGB 26.7 pg (27.0-31.0); MEAN CORPUSCULAR HGB CONC 30.4 g/dl (33.0-37.0); MEAN PLATELET VOLUME 11.5 fl (9.6-12.3); MONO # 1.3 10*3/uL (0.1-1.0); MONO % 11.2 % (3.0-9.0); NEUT # 6.3 10*3/uL (2.3-7.9); NEUT % 54.1 % (47.0-73.0); PLATELET COUNT AUTOMATED 228 10*3/uL (130-400); RED BLOOD COUNT 2.92 10*6/uL (4.10-5.10); RED CELL DISTRI WIDTH 21.4 % (0-14.5); WHITE BLOOD COUNT 11.6 10*3/uL (4.8-10.8)
[2020-02-18 06:18] LABS: CREATININE 3.29 mg/dL (0.55-1.02); PHOSPHOROUS 5.9 mg/dL (2.5-4.9); POTASSIUM 5.3 mmol/L (3.5-5.1)
[2020-02-18 06:25] LABS: INTERNATIONAL NORM RATIO 3.8 (2.0-3.5)
--- NOTE | 2020-02-18 07:34 | NUR ---
SPOKE TO DR HENRY RE: PT FENTANYL PATCH BEING DISCONTINUED AFTER 7 DAYS AND PT COMPLAINING OF PAIN AT THIS TIME. PER DR HENRY RE-ORDER FENTANYL PATCH. NO FURTHER ORDERS AT THIS TIME. CONBERSATION WITNESSED BY 2ND RN BRANDON SCHMITT.
[2020-02-18 07:35] VITALS: BP 116/64
--- NOTE | 2020-02-18 08:47 | NUR ---
FENTANYL PATCH APPLIED TO LEFT UPPER SHOULDER, OLD PATCHED WASTED PER ORDERS, WITNESSED BY JAYDA SCHMITT.
--- NOTE | 2020-02-18 09:07 | NUR ---
DR BARBOZA-PODIATRY ON UNIT TO ASSESS PT, UPDATE PROVIDED.
--- NOTE | 2020-02-18 11:31 | NUR ---
PT C/O LEG PAIN, MEDICATED WITH TYLENOL 650 MG PO PRN PER ORDERS. WILL CONTINUE TO MONITOR.
--- NOTE | 2020-02-18 12:31 | NUR ---
PT ALERT TO PERSON, PLACE AND TIME WITH INTERMITTENT CONFUSION AND SHORT TERM MEMORY DEFICITS NOTED. PT MED COMPLIANT WITHOUT DIFFICULTY. NO FURTHER C/O PAIN NOTED AT THIS TIME, PT RESTING IN GERICHAIR WITH EYES CLOSED. PT HAS POOR APPETITE, CONSUMED 1 HARD BOILED EGG FOR BREAKFAST AND 30 CC FLUID, PT REFUSED LUNCH. STAFF ENCOURAGED PO INTAKE, PT STATED "I JUST DON'T WANT ANYTHING." ABDOMINAL GIRTH MEASURING 46 INCHES AT THIS TIME. IV SITE REMAINS INTACT TO LEFT UPPER ARM. LEFT ARM IS ALSO OBSERVED TO BE EDEMATOUS, NO REDNESS OR WARMTH NOTED. PT VOIDED X1 THIS SHIFT, PT CONTINENT OF BOWEL AND BLADDER. TUBIGRIPS REMAIN IN TACT TO BLE, PT TOLERATING WITHOUT ISSUE. NO HALLUCINATIONS OR DELUSIONS NOTED. NO SUICIDAL THOUGHTS OR BEAHVIORS NOTED. PT CONTINUES TO SLEEP ON AND OFF THROUGHOUT THE SHIFT, EASILY AROUSABLE.
--- NOTE | 2020-02-18 14:07 | NUR ---
DR HENRY UPDATED ON PT LABS, NO FURTHER ORDERS AT THIS TIME. ATTEMPTED TO UPDATE DR BULL, NO ANSWER AT THIS TIME.
--- NOTE | 2020-02-18 18:18 | NUR ---
DR. BULL ON UNIT TO ASSESS PT, UPDATE PROVIDED. ADVISED OF PT LAB RESULTS FROM THIS MORNING. PLAN REMAINS TO HAVE A DIALYSIS PORT INSERTED TOMORROW AND TO START DIALYSIS. ADVISED DR BULL THAT PT WILL NEED TO BE ADMITTED TO THE MEDICAL UNIT TO RECEIVE DIALYSIS AND HAVE PORT INSERTED. NO FURTHER ORDERS AT THIS TIME.
[2020-02-18 19:46] VITALS: BP 100/50
--- NOTE | 2020-02-18 21:51 | NUR ---
Dr. Zepeda called and said to keep patient NPO until nurse talks to Dr. Zepeda in am.
--- NOTE | 2020-02-18 21:52 | NUR ---
Patient alert with periods of confusion. Nemory deficits noted. Mood calm,pleasant,and cooperative. Patient compliant with HS medications without any difficulty. Provided 1:1 for emotional support. Redirected/reoriented when needed. Plan to continue to encourage medication compliance. Also continue to provide emotional support and redirect/reorient when needed/appropriate. Will continue to monitor moods/behaviors. Q 15 minute safety checks continued and maintained. See [facility] flowsheet for further documentation.
--- NOTE | 2020-02-19 05:47 | NUR ---
Patient slept approx. 9.5 hours throughout shift. Q 15 minute safety checks continued and maintained.
[2020-02-19 06:43] LABS: CREATININE 3.67 mg/dL (0.55-1.02); POTASSIUM 5.8 mmol/L (3.5-5.1)
--- NOTE | 2020-02-19 07:15 | NUR ---
OT NOTE Prior to coming to the floor spoke with charge nurse Leona and reported that therapy was coming to the floor to treat this pt. Pt was seen this A.M. 1:1 for 15 minute OT session with nursing staff present for observation only. Upon arrival pt was sitting semi reclined in the diane chair in the dining becker. Pt identified by name and and had no complaints at this time. Pt presented to therapy with continuous 2L-O2 via NC which she remained on throughout the entire session. Pt was taken out into the hallway where she completed multiple sit to stand transfers from chair level with Wilbur and use of hand rail for UE support. Throughout static standing pt was able to maintain aprox 3 minutes at a time with CGA, however had multiple bouts of B knees buckling that required Wilbur to correct. Throughout pt was very unsteady and continued with B knee buckle. No theraputic exercise completed this date to BUE's due to LUE midline. Pt was positioned back into her chair with maxA X 2. Pt was left sitting semi reclined in the dining becker with BLE's elevated, heel protectors donned, tray table in place, and under [facility] staff supervision. Continue with POC as indicated. HENRI Harden
[2020-02-19 07:30] VITALS: BP 110/60
--- NOTE | 2020-02-19 08:30 | NUR ---
TREATMENT PLAN MEETING WAS HELD WITH DR. BUCKNER, LUIS THAKKAR, RN, MID LEVEL PRACTITIONER-S AND EQUIPMENT PLANNER. PLAN FOR DISCHARGE OF WEDNESDAY WAS FOR DAUGHTER TO TAKE PATIENT HOME. REFERRAL IS PENDING TO [facility] BACK UP FOR SNF. PT. IS HAVING SOME MEDICAL ISSUES PER THE RN THIS A.M. AND MAY TRANSFER TO MEDICAL FLOOR.
[2020-02-19 08:40] LABS: INTERNATIONAL NORM RATIO 3.4 (2.0-3.5)
--- NOTE | 2020-02-19 08:40 | NUR ---
Patient resting quietly with no c/o discomfort. Respirations easy and regular. Vital signs stable. Pt has had small emesis this am due to excessive coughing, yellow mucous expelled. JIM MARTINEZ
--- NOTE | 2020-02-19 08:55 | NUR ---
DR. HENRY NOTIFIED AND REVIEWED LABS. ADMIT TO MEDICAL WITH WORSENING RENAL FAILURE, NEED FOR DIAYLSIS.
[2020-02-19 09:19] VITALS: BP 129/89
[2020-02-19] MEDS ORDERED: NAMENDA10 MG PO (09:21)
[2020-02-19] MEDS ORDERED: ARICEPT10 M1 PO (09:23)
[2020-02-19] MEDS ORDERED: CYMBALTA60 MG PO (09:23)
[2020-02-19] MEDS ORDERED: VITAMIN D3125 MC1 PO (09:52)
--- NOTE | 2020-02-19 10:14 | NUR ---
ALL BELONGING GATHERED, DISCHARGE INSTRUCTION AND NURSE TO NURSE REPORT GIVEN. PATIENT ASSISTED INTO [facility] CHAIR. OFF UNIT WITH DISCHARGE INSTRUCTIONS WITH NURSE AND MENTAL HEALTH WORKER TO 427-1. ALL BELONGING SENT WITH PATIENT.
--- NOTE | 2020-02-19 10:17 | NUR ---
DR. BULL CALLED REGARDING LABS, INFORMED OF PATIENT BEING ADMITTED TO [facility].1
--- NOTE | 2020-02-19 10:35 | NUR ---
NURSE TO NURSE REPORT GIVEN TO SINAN FELIX
--- NOTE | 2020-02-19 11:57 | NUR ---
Patient discharged to [facility]. Will continue to follow.
--- NOTE | 2020-02-20 07:57 | NUR ---
OCCUPATIONAL THERAPY CO-SIGN I approve of the Occupational Therapy notes written above. LISA TAYLOR, OTR/L
== END 2020-02-19 10:14 | disposition short-term general hospital (02) | DRG 885 ==
LOC: 3N 12:57
PROVIDERS: Counselor Professional; Internal Medicine; Internal Medicine Nephrology; Nurse Practitioner Women's Health; Student in an Organized Health Care Education/Training Program; ADMIT Psychiatry & Neurology Psychiatry
DX: F33.2 Major depressive disorder, recurrent severe without psychotic features (principal); N17.0 Acute kidney failure with tubular necrosis; N18.4 Chronic kidney disease, stage 4 (severe); N04.9 Nephrotic syndrome with unspecified morphologic changes; L03.116 Cellulitis of left lower limb; E44.0 Moderate protein-calorie malnutrition; E72.20 Disorder of urea cycle metabolism, unspecified; N17.9 Acute kidney failure, unspecified; Z16.21 Resistance to vancomycin; N39.0 Urinary tract infection, site not specified; I13.0 Hypertensive heart and chronic kidney disease with heart failure and stage 1 through stage 4 chronic kidney disease, or unspecified chronic kidney disease; Z16.12 Extended spectrum beta lactamase (ESBL) resistance; D64.9 Anemia, unspecified; Z66 Do not resuscitate; Z51.5 Encounter for palliative care; E11.51 Type 2 diabetes mellitus with diabetic peripheral angiopathy without gangrene; E87.5 Hyperkalemia; I50.810 Right heart failure, unspecified; K70.31 Alcoholic cirrhosis of liver with ascites; E11.69 Type 2 diabetes mellitus with other specified complication; K72.90 Hepatic failure, unspecified without coma; F41.9 Anxiety disorder, unspecified; B96.89 Other specified bacterial agents as the cause of diseases classified elsewhere; E78.5 Hyperlipidemia, unspecified; E03.9 Hypothyroidism, unspecified; E11.22 Type 2 diabetes mellitus with diabetic chronic kidney disease; R35.0 Frequency of micturition; L30.4 Erythema intertrigo; I87.2 Venous insufficiency (chronic) (peripheral); Z95.0 Presence of cardiac pacemaker; Z82.49 Family history of ischemic heart disease and other diseases of the circulatory system; Z88.1 Allergy status to other antibiotic agents; Z88.8 Allergy status to other drugs, medicaments and biological substances; Z82.3 Family history of stroke; Z79.899 Other long term (current) drug therapy; Z79.01 Long term (current) use of anticoagulants; Z68.31 Body mass index [BMI] 31.0-31.9, adult

== ENCOUNTER 2020-02-19 10:28 | Inpatient (IN) | payer MEDICARE ==
[~2020-02-19] VITALS: Ht 152.4 cm; Wt 75.9 kg
[2020-02-19] VITALS (9 sets, daily range): BP systolic 80–128; BP diastolic 38–64
[~2020-02-19 10:28] MED LIST changes: +ARICEPT10 M1 PO; +NAMENDA10 MG PO; +VISTARIL25 MG PO; +VITAMIN D3125 MC1 PO; +ZYPREXA5 M1 PO
--- NOTE | 2020-02-19 10:43 | NUR ---
Time: 1029 A 84 year old FEMALE admitted to under services of DR. ELAINE BELTRÁN,PHI. Pt. arrived via wheel chair from [place]. Chief complaint: RENAL FAILURE. UNRULY MOORE
--- NOTE | 2020-02-19 12:10 | NUR ---
PODIATRY RESIDENT NOTIFIED OF CONSULT.
--- NOTE | 2020-02-19 12:12 | NUR ---
[facility] NOTIFIED OF CONSULT
--- NOTE | 2020-02-19 13:32 | NUR ---
PHYSICAL THERAPY Screen and PT eval received will follow thank you Edith Lilly PT
--- NOTE | 2020-02-19 14:39 | NUR ---
Patient not available for occupational therapy evaluation this date as nursing is preparing to hang platelets at this time. OTR will recheck at a later date. Petty Taylor OTR/L
--- NOTE | 2020-02-19 14:43 | NUR ---
PHYSICAL THERAPY Attempted to see pt for evaluation however nursing in the process of preparing pt for blood transfusion, will follow in the AM. Edith Lilly PT
--- NOTE | 2020-02-19 15:02 | NUR ---
FIRST UNIT OF FFP INITIATED PER ORDER. VERIFIED BY 2 RN'S. VSS. WILL MONITOR.
--- NOTE | 2020-02-19 15:41 | NUR ---
Clinical Updates faxed to [facility] Attn: Fina [phone]. [facility] has not accepted at this time. Referral pending.
--- NOTE | 2020-02-19 19:15 | NUR ---
PER. DR BULL ORDER 1MG BUMEX IV FOR NOW.
--- NOTE | 2020-02-19 20:00 | NUR ---
ORDERED STAT EKG DUE TO EKGS CHANGES. NOTIFIED DR. BALES. DR. BALES TO FLOOR. PATIENT ASYMPTOMATIC. DENIES CP/SOB. BP 80/40. SEE NEW ORDERS.
--- NOTE | 2020-02-19 20:11 | NUR ---
BUMEX NOT GIVEN DUE TO LOW BLOOD PRESSURE. 80/40. NOTIFIED DR. BALES.
[2020-02-19 20:37] LABS: ALBUMIN 2.3 gm/dl (3.1-4.5); CREATININE 4.02 mg/dL (0.55-1.02); POTASSIUM 5.3 mmol/L (3.5-5.1); TOTAL PROTEIN 7.7 gm/dL (6.4-8.2)
[2020-02-20] VITALS: BP 117/88
--- NOTE | 2020-02-20 06:09 | NUR ---
ROMELIA GERBER Kathy [id number] Please refer to the physician's history and physical for past medical history, comorbid conditions, and allergies. Diagnosis: WORSENING KIDNEY FAILURE,NEED FOR DIALYSIS Karthik Score: 16,AT RISK WOUND DESCRIPTIONS: Wound Number: 1 Location of the wound: left arm proximal Type of wound: skin tear Thickness: Partial Size: 1.1cm x 0.9cm x 0.1cm Tunneling: none Undermining: none Sinus Tract: none Presence of Exudate: Serosanguineous Amount: Light Color: Red Odor: None Periwound Skin Appearance: Normal Wound edges: approximated Pain (associated with wound): none at time of assessment How does patient state this happened? pt is unsure how this happened Wound Number:2 Right forearm distal skin intact at time of assessment Wound Number:3 Bilateral feet have several areas that are discolored at time of assessment all areas at time of assessment are blanchable. No open areas noted at time of assessment no drainage noted at time of assessment to bilateral feet. Wound Number: 4 Location of the wound: Right upper arm Type of wound: scab Thickness: Partial Size: 0.6cm x 0.3cm x <0.1cm Tunneling: none Undermining: none Sinus Tract: none Presence of Exudate: none Amount: none Color: Red Odor: None Periwound Skin Appearance: Normal Wound edges: approximated Pain (associated with wound): none at time of assessment How does patient state this happened? pt is unsure how this happened Wound Number: 5 Location of the wound: left buttocks Type of wound: stage 2 Thickness: Partial Size: 0.5cm x 0.7cm x 0.1cm Tunneling: none Undermining: none Sinus Tract: none Presence of Exudate: Serosanguineous Amount: Light Color: Red Odor: None Periwound Skin Appearance: Normal Wound edges: approximated Pain (associated with wound): none at time of assessment How does patient state this happened? pt is unsure how this happened Wound Number:6 Left upper buttocks/hip skin intact at time of assessment. Wound Number: 7 Location of the wound: left heel proximal Type of wound: DTI Size: 0.7cm x 1.5cm x <0.1cm Tunneling: none Undermining: none Sinus Tract: none Presence of Exudate: none Amount: None Color: dark red, purple Odor: None Periwound Skin Appearance: Normal Wound edges: approximated Pain (associated with wound): none at time of assessment How does patient state this happened? pt unsure how this happened Wound Number:8 Right upper buttocks/hip skin intact at time of assessment. Wound Number:9 Left forearm distal skin intact at time of assessment. Wound Number: 10 Location of the wound: left heel distal Type of wound: DTI Size: 1.2cm x 2.5cm x <0.1cm Tunneling: none Undermining: none Sinus Tract: none Presence of Exudate: none Amount: None Color: dark red, purple Odor: None Periwound Skin Appearance: Normal Wound edges: approximated Pain (associated with wound): none at time of assessment How does patient state this happened? pt unsure how this happened Surface the patient is resting on: Position Pro SKIN PREVENTION RECOMMENDATION: 1. Pressure redistribution support surface as appropriate 2. Elevate heels 3. Remove boots/TEDS every shift and reapply 4. Head of bed 30 degrees as tolerated 5. Assess nutrition and hydration 6. Manage moisture 7. Avoid the use of containment devices while in bed 8. Use absorptive products on surfaces limit layers of linens on bed 9. Turn and reposition every 1-2 hours in bed and every 1 hour in chair as tolerated 10. Weight shifts every 15 minutes while up in chair 11. Offloading with pillows or device to keep heels elevated off bed 12. Monitor skin at least every shift 13. Inspect under medical devices twice a day WOUND TREATMENT RECOMMENDATIONS: Wheelchair cushion when oob. Heel raiser pro boots to bilateral feet. Stage 2 guidelines: Cleanse Left buttocks with nss and apply sureprep around the wound hydrogel to wound bed and cover with optifoam gentle every 2 days and prn for soiling. Partial thickness guidelines: Cleanse left arm proximal, right upper arm with nss and apply sureprep around the wound hydrogel to wound bed and cover with optifoam gentle every 2 days and prn for soiling. DTI guidelines: Apply sureprep to left heel proximal and left heel distal allow time to dry and then apply optifoam gentle.
[2020-02-20 06:15] LABS: BASO # 0.2 10*3/uL (0.0-0.1); BASO % 1.2 % (0.0-1.0); EOS # 1.1 10*3/uL (0.0-0.4); EOS % 8.2 % (1.0-4.0); HEMOGLOBIN 8.3 g/dl (12.0-16.0); MEAN CELL VOLUME 89.4 fl (81.0-99.0); MEAN CORPUSCULAR HGB 27.5 pg (27.0-31.0); MEAN CORPUSCULAR HGB CONC 30.7 g/dl (33.0-37.0); MEAN PLATELET VOLUME 11.5 fl (9.6-12.3); MONO # 1.2 10*3/uL (0.1-1.0); NEUT # 6.8 10*3/uL (2.3-7.9); NEUT % 51.1 % (47.0-73.0); PLATELET COUNT AUTOMATED 240 10*3/uL (130-400); RED BLOOD COUNT 3.02 10*6/uL (4.10-5.10); RED CELL DISTRI WIDTH 21.3 % (0-14.5); WHITE BLOOD COUNT 13.3 10*3/uL (4.8-10.8)
[2020-02-20 06:28] LABS: ALBUMIN 2.3 gm/dl (3.1-4.5); CREATININE 4.09 mg/dL (0.55-1.02); PHOSPHOROUS 6.6 mg/dL (2.5-4.9); POTASSIUM 5.3 mmol/L (3.5-5.1); TOTAL PROTEIN 7.6 gm/dL (6.4-8.2)
[2020-02-20 08:00] VITALS: BP 106/50; BP 122/50
--- NOTE | 2020-02-20 08:48 | NUR ---
PHYSICAL THERAPY Attempted to see pt for evaluation, pt agreeable but would like to eat breakfast first. Will follow later in the AM after patient has eaten. Edith Lilly PT
--- NOTE | 2020-02-20 08:57 | NUR ---
Assistant Branch Operations Manager in to talk to patient. Patient states lives at home with her daughter. There are 3 steps in the home. Physician: Dr. Cory Mccabe Pharmacy: [facility] Home health services: possible [facility] on discharge Patient's level of ADLs: MINIMAL ASSIST Patient has working utilities: yes DME: wheeled walker Follow-up physician's appointment after d/c: she prefers to make her own follow up appt after discharge Does patient want to access PORTAL?: no Discharge plan discussed with patient. She lives at home with her daughter. She needs minimal assistance with her ADLs and ambulates with a wheeled walker. Discussed short term SNF and she refuses. Discussed home health care services and she is agreeable. Previous discussions when patient was on U was with [facility]. When medically stable she will be discharged to home with her daughter and [facility]. She states her daughter will provide transportation on discharge. [facility] city planner following for discharge needs. NURYS FLORES
[2020-02-20 12:00] VITALS: BP 110/73
--- NOTE | 2020-02-20 13:28 | NUR ---
Physical Therapy evaluation completed onthe 4th floor with full evaluation to follow. Recommend physical therapy per plan of care and SNF upon discharge. Thank you for this referral. Edith Lilly PT
--- NOTE | 2020-02-20 14:52 | NUR ---
PATIENT ASSISTED UP TO CHAIR WITH WALKER AND TWO ASSIST, HEEL PROTECTORS REAPPLIED, LEGS ELEVATED.
[2020-02-20 16:00] VITALS: BP 118/64
--- NOTE | 2020-02-20 18:37 | NUR ---
PATIENT HAD SCANT NOSE BLEED, THEN EPISODE OF NAUSEA, VOMITED SCANT AMOUNT OF FOOD SUBSTANCE AND MUCOUS. MEDICATED WITH PRN PO ZOFRAN FOR NAUSEA, O2 IS HUMIDIFIED 2L NC.
--- NOTE | 2020-02-20 19:00 | NUR ---
ASSUMED CARE FOR THIS PT AT THIS TIME. PT AWAKE SITTING IN RECLINER WATCHING TV. NO C/O VOICED. CALL LIGHT IN REACH.
[2020-02-20 20:00] VITALS: BP 122/41
[2020-02-21] VITALS (11 sets, daily range): BP systolic 98–112; BP diastolic 40–82
--- NOTE | 2020-02-21 03:58 | NUR ---
24 HR chart check completed.
--- NOTE | 2020-02-21 04:15 | NUR ---
Upon discharge recommend patient to follow up for wound care in outpatient setting continue current wound care orders at discharging facility.
[2020-02-21 06:15] LABS: ALBUMIN 2.3 gm/dl (3.1-4.5); CREATININE 4.46 mg/dL (0.55-1.02); PHOSPHOROUS 6.5 mg/dL (2.5-4.9); POTASSIUM 5.1 mmol/L (3.5-5.1); TOTAL PROTEIN 7.4 gm/dL (6.4-8.2)
[2020-02-21 06:33] LABS: BASO # 0.1 10*3/uL (0.0-0.1); BASO % 0.9 % (0.0-1.0); EOS # 1.3 10*3/uL (0.0-0.4); EOS % 9.9 % (1.0-4.0); HEMATOCRIT 25.6 % (37.0-47.0); LYMPH # 2.9 10*3/uL (1.3-4.4); LYMPH % 21.8 % (27.0-41.0); MEAN CORPUSCULAR HGB 27.5 pg (27.0-31.0); MEAN CORPUSCULAR HGB CONC 31.3 g/dl (33.0-37.0); MEAN PLATELET VOLUME 11.5 fl (9.6-12.3); MONO # 1.2 10*3/uL (0.1-1.0); MONO % 9.2 % (3.0-9.0); NEUT # 7.7 10*3/uL (2.3-7.9); NUCLEATED RED BLOOD CELL 0.2 % (0.0-0.0); PLATELET COUNT AUTOMATED 212 10*3/uL (130-400); RED BLOOD COUNT 2.91 10*6/uL (4.10-5.10); RED CELL DISTRI WIDTH 21.2 % (0-14.5); WHITE BLOOD COUNT 13.2 10*3/uL (4.8-10.8)
[2020-02-21 07:12] LABS: INTERNATIONAL NORM RATIO 1.9 (2.0-3.5)
--- NOTE | 2020-02-21 11:05 | NUR ---
PHYSICAL THERAPY TREATMENT TIME: IN 10:00 AM 21 MINUTES TOTAL Patient presented to therapy in supine in bed with head of bed elevated and bed alarm activated with report of feeling better and no other complaints. Patient gives informed consent for treatment. Patient was identified by name and on wristband. Patient performed supine to sitting on EOB with MOD A X 2. Patient was scooted to EOB with MAX A X 2. Patient sat on EOB with SBA. Patient completed sit to stand from EOB with MIN A X 2. Patient performed ambulation with Wh Walker and CGA x 2 for 23' x 1 and no LOB and 2 minor episodes of knee buckling and tremor of the UE that seemed to be the R side of body. Patient transferred <> from commode in bathroom with CGA-MIN A X 1. Patient ambulated another 23' x 1 with Wh Walker and CGA back to bedside chair where she sat with CGA-MIN A X 1 and verbal cues for putting hands back on armrests of chair. Patient was left in bedside chair with call light within reach, chair alarm tested and attached to patient and LEs in low position. Patient was 1:1 with this SOFTWARE TEAM LEADER for 25 minutes total. QIANA KEARNS SOFTWARE TEAM LEADER
--- NOTE | 2020-02-21 11:31 | NUR ---
Spoke to daughter, Evelyn, regarding discharge planning. Plan is to take her mother home with [facility]. If patient needs O2 at home daughter would like [employer] to be used. When medically stable she will be discharged to home with [facility]. [facility] remains as secondary option.
--- NOTE | 2020-02-21 14:00 | NUR ---
PLASMA INITIATED AT THIS TIME.
--- NOTE | 2020-02-21 14:21 | NUR ---
Occupational Therapy evaluation completed on four with full evaluation to follow. Recommend occupational therapy per plan of care and SNF upon discharge. Thank you for this referral. Sharonda Echeverria OTR/L
--- NOTE | 2020-02-21 16:00 | NUR ---
PATIENT C/O PAIN/SWELLING TO LEFT UPPER ARM DURING PLASMA. LEFT UPPER ARM ACCUCATH NOTED TO BE INFILTRATED. NOTIFIED . WARM COMPRESS APPLIED. NEW IV SITE OBTAINED TO RIGHT AC.
--- NOTE | 2020-02-21 23:23 | NUR ---
DR. BALES NOTIFIED OF MANUAL BP READING OF 98/60.
[2020-02-22] VITALS (21 sets, daily range): BP systolic 96–173; BP diastolic 42–89
--- NOTE | 2020-02-22 02:18 | NUR ---
24 HOUR CHART CHECK COMPLETE.
--- NOTE | 2020-02-22 06:09 | NUR ---
CRITICAL AMMONIA OF [address] BALES.
[2020-02-22 06:11] LABS: BASO # 0.1 10*3/uL (0.0-0.1); BASO % 0.9 % (0.0-1.0); EOS % 10.6 % (1.0-4.0); HEMATOCRIT 23.6 % (37.0-47.0); HEMOGLOBIN 7.5 g/dl (12.0-16.0); LYMPH % 30.1 % (27.0-41.0); MEAN CELL VOLUME 87.1 fl (81.0-99.0); MEAN CORPUSCULAR HGB 27.7 pg (27.0-31.0); MEAN CORPUSCULAR HGB CONC 31.8 g/dl (33.0-37.0); MEAN PLATELET VOLUME 11.4 fl (9.6-12.3); MONO # 0.9 10*3/uL (0.1-1.0); MONO % 9.6 % (3.0-9.0); NEUT # 4.8 10*3/uL (2.3-7.9); NEUT % 48.5 % (47.0-73.0); PLATELET COUNT AUTOMATED 190 10*3/uL (130-400); RED BLOOD COUNT 2.71 10*6/uL (4.10-5.10); RED CELL DISTRI WIDTH 20.9 % (0-14.5); WHITE BLOOD COUNT 9.8 10*3/uL (4.8-10.8)
[2020-02-22 06:43] LABS: ALBUMIN 2.3 gm/dl (3.1-4.5); CREATININE 4.72 mg/dL (0.55-1.02); PHOSPHOROUS 6.1 mg/dL (2.5-4.9); TOTAL PROTEIN 7.4 gm/dL (6.4-8.2)
[2020-02-22 06:51] LABS: ACT PARTIAL THROMBO TIME 34.8 SECONDS (20.0-32.1); INTERNATIONAL NORM RATIO 1.4 (2.0-3.5)
--- NOTE | 2020-02-22 08:40 | NUR ---
OT NOTE Pt was seen this A.M. 1:1 for 20 minute OT session. Upon arrival pt was supine in bed. Pt identified by name and and had complaints of increased fatigue and BLE's being "sore to touch." Pt presented to therapy with continuous 2L-O2 via NC which she remained on throughout entire session and SpO2 96% at rest and also presented with edema to BLE's, BUE's, and B hands. Pt transferred supine to sit EOB with modA X 2 for assist with both UB and LB. Sit to stand completed from bed level with Wilbur X 2 and use of w/w for UE support. Functional mobility was then completed into the bathroom with Wilbur and use of w/w. Throughout pt had multiple episodes of B knees buckling that required modA to correct. Pt transferred on to standard commode with CGA. While sitting on commode pt required SBA-CGA due to "jerky" movements over her whole body increasing risk of fall. Clothing management completed with maxA due to being unable to stand without UE support due to B knee buckling and transferred off standard commode with Wilbur X 2. Functional mobility was then completed to the recliner with Wilbur and use of w/w with continued episodes of B knees buckling and BUE's presenting with "jerky" movements. Pt was left sitting reclined in the recliner with BLE's elevated for edema control, body alarm activated for safety, and call light in reach. Continue with rec D/C plan to SNF. HENRI Harden
--- NOTE | 2020-02-22 08:53 | NUR ---
TREATMENT TIME: IN 08:22 AM Patient presented to therapy in supine with head of bed elevated and bed alarm activated. Patient is on 2 liters of spO2 VIA NASAL CANULA. Patient gives informed consent for treatment. Patient was identifieed by name and on wristband. Patient intial VITALS were recorded as B/P 129/40 in L LE, O2 SAT= 96% and pulse at 60. Patient transferred from supine to sitting at EOB with MOD-MAX A X 1. Patient sat on EOB with CGA. Patient completed sit to stand from EOB with MIN A X 1. Patient ambulated with Walker and CGA 15' x 1 to commode where she sat with CGA-MIN A X 1 and verbal cues for hand placement. Patient sit to stand from commode with MIN A X 1. Patient ambulated with Walker and CGA for 23' x 1 to bedside chair. Patient sat in bedside chair with MIN A X 1. Patient was left in bedside chair with call light within reach, chair alarm tested and attached ot patient and LEs elevated. Patient demonstrated increased EDEMA in the bilateral LEs and UEs. Patient was 1:1 with this MASTIC WORKER for 23 minutes total. QIANA KEARNS MASTIC WORKER
--- NOTE | 2020-02-22 10:10 | NUR ---
Taken off floor to OR for dialysis cath placement.
--- NOTE | 2020-02-22 10:24 | NUR ---
Daughter's plan remains to take the patient home with [facility].
--- NOTE | 2020-02-22 11:23 | NUR ---
Clinical updates faxed to [facility] Attn: Fina [phone].
--- NOTE | 2020-02-22 13:04 | NUR ---
Medicated with dilaudid iv per order for c/o bl lower leg pain.
--- NOTE | 2020-02-22 13:19 | NUR ---
Dr. Zepeda called and states that Dr. Black will be calling for pt to take her down for tunneling dialysis cath now. Notified dialysis nurse.
--- NOTE | 2020-02-22 13:32 | NUR ---
Surgery here to take pt for tunneling dialysis cath.
--- NOTE | 2020-02-22 15:16 | NUR ---
Pt has returned from OR. Called dialysis. States she in on 5e in the dialysis room. I had heard that they were supposed to do dialysis in [facility]. Dialysis nurse states she has not heard that. I spoke with Demetria Quijano nursing security shift supervisor and she states the pt on 4e need to go to [facility] for dialysis treatment. I notified dialysis nurse of this. She states she just got off phone from her security shift supervisor and they stated that is not the process. She requested that out nursing security shift supervisor call hers. I passed on this number to Demetria Quijano, who states she is going to give this information to Willian who was standing beside her. Number given was [phone]. Awaiting further direction for this pt to receive needed treatment.
[2020-02-22 15:32] LABS: BASO # 0.1 10*3/uL (0.0-0.1); EOS % 9.5 % (1.0-4.0); HEMATOCRIT 25.3 % (37.0-47.0); LYMPH # 2.9 10*3/uL (1.3-4.4); LYMPH % 26.1 % (27.0-41.0); MEAN CELL VOLUME 87.8 fl (81.0-99.0); MEAN CORPUSCULAR HGB 27.8 pg (27.0-31.0); MEAN CORPUSCULAR HGB CONC 31.6 g/dl (33.0-37.0); MEAN PLATELET VOLUME 11.2 fl (9.6-12.3); MONO # 0.8 10*3/uL (0.1-1.0); MONO % 7.2 % (3.0-9.0); NEUT # 6.1 10*3/uL (2.3-7.9); NEUT % 55.9 % (47.0-73.0); PLATELET COUNT AUTOMATED 206 10*3/uL (130-400); RED BLOOD COUNT 2.88 10*6/uL (4.10-5.10); WHITE BLOOD COUNT 10.9 10*3/uL (4.8-10.8)
[2020-02-22 15:43] LABS: ALBUMIN 2.4 gm/dl (3.1-4.5); CREATININE 4.8 mg/dL (0.55-1.02); PHOSPHOROUS 5.9 mg/dL (2.5-4.9); POTASSIUM 5.1 mmol/L (3.5-5.1)
--- NOTE | 2020-02-22 16:22 | NUR ---
Pt taken back to dialysis via bed. Roselia Ortiz from surgery had went to obtain blood for pt from blood bank for administration with dialysis treatment.
--- NOTE | 2020-02-22 17:55 | NUR ---
Report received from dialysis nurse. States treatment is completed. States pt clotted off and this ended treatment. States she notified Dr. Zepeda and pt had her 1 unit of blood.
--- NOTE | 2020-02-22 18:16 | NUR ---
PT RETURNED TO ROOM FROM HAVING DIALYSIS. DIALYSIS RNS HAD VITALS FOR BLOOD ASSESSMENT FOR ME TO DOCUMENT ON TAR.
--- NOTE | 2020-02-22 23:23 | NUR ---
24 HOUR CHART CHECK COMPLETE.
[2020-02-23] VITALS: BP 111/48
--- NOTE | 2020-02-23 06:05 | NUR ---
CRITICAL AMMONIA OF [address] SCHAFER.
[2020-02-23 06:12] LABS: HEMATOCRIT 24.8 % (37.0-47.0); MEAN CELL VOLUME 86.1 fl (81.0-99.0); MEAN CORPUSCULAR HGB 27.8 pg (27.0-31.0); MEAN CORPUSCULAR HGB CONC 32.3 g/dl (33.0-37.0); MEAN PLATELET VOLUME 11.7 fl (9.6-12.3); NUCLEATED RED BLOOD CELL 0.2 % (0.0-0.0); RED BLOOD COUNT 2.88 10*6/uL (4.10-5.10); RED CELL DISTRI WIDTH 19.9 % (0-14.5); WHITE BLOOD COUNT 9.6 10*3/uL (4.8-10.8)
[2020-02-23 06:19] LABS: INTERNATIONAL NORM RATIO 1.4 (2.0-3.5)
[2020-02-23 06:44] LABS: ALBUMIN 2.2 gm/dl (3.1-4.5); CREATININE 4.61 mg/dL (0.55-1.02); PHOSPHOROUS 5.6 mg/dL (2.5-4.9); POTASSIUM 4.7 mmol/L (3.5-5.1)
[2020-02-23 07:04] LABS: PLATELET COUNT AUTOMATED 122 10*3/uL (130-400)
[2020-02-23 07:07] LABS: BASOPHILS 2 % (0-1); TOTAL CELLS COUNTED 100 #CELLS
[2020-02-23 07:08] LABS: PLATELET SUFFICIENCY LOW (NORMAL); POLYCHROMASIA SLIGHT; TARGET CELLS MODERATE
[2020-02-23 08:00] VITALS: BP 92/46
--- NOTE | 2020-02-23 08:25 | NUR ---
OT NOTE Pt was seen this A.M. 1:1 for 15 minute OT session. Upon arrival pt was supine in bed. Pt identified by name and and had no complaints of L foot pain which she did not rate on 0-10 pain scale when asked . Pt presented to therapy with continuous 2L-O2 via NC which she remained on throughout the entire session. Pt transferred supine to sit EOB with modA X 2. Sit to stand completed from bed level with Wilbur X 2 and use of w/w for UE support. Functional mobility was then completed to the bathroom with min-maxA and use of w/w. Throughout pt presented with multiple B knee gabi that required maxA X 2 to correct. Pt transferred on to standard commode with maxA due to B knees buckling. Clothing management completed with maxA and toilet hygiene completed with maxA. Pt then transferred off standard commode with Wilbur X 2 and began to instantly present with multiple B knee gabi that required maxA x 2 to correct. Pt was left sitting upright in the recliner with call light in hand, tray table in place, and body alarm activated for safety. Continue with rec D/C plan to SNF. Throughout session pt's L arm was seeping, notified pt's nurse Sena. TATI Harden/Evelio
[2020-02-23 12:00] VITALS: BP 129/71
--- NOTE | 2020-02-23 12:35 | NUR ---
OCCUPATIONAL THERAPY CO-SIGN I approve of the Occupational Therapy notes written above. Sharonda Echeverria, OTR/L
--- NOTE | 2020-02-23 12:53 | NUR ---
PHYSICAL THERAPY TREATMENT TIME: OUT 08:25 AM Patient presented to therapy in supine with head of bed elevated and 2 liters of spO2 VIA [employer] LC[employer]A and edema in the bilateral LEs and UEs. Patient has no complaints. Patient is willing to participate in therapy at this time. Patient gives informed consent for treatment. Patient was identified by name and on wristband. Patient transferred supine to sitting at EOB with MOD A X 2. Patient sat on EOB with SBA-CGA. Patient scooted to EOB with CGA. Patient completed sit to stand from EOB with MIN A X 2 and verbal cues for pushing off bed with hands. Patient performed ambulation with Wh Walker and MIN A X 2- MOD A X 2- MAX A X 2 for 15' x 1 to commode in bathroom with multiple episodes of knees buckling and LOB requiring MOD A X 2- MAX A X 2 to correct to upright postion. Patient is very weak and is at an increased fall risk! Patient had dialysis for the first time recently. Patient performed sit to stand from commode with MOD A X 1. Patient ambulated with Wh Walker 10' and MIN A X 1-MOD A X 2-MAX A X 2 due to multiple episode of knees buckling and LOB and had to be bodily lifted into a chair by two therapists and a EMERGENCY MEDICAL SERVICE COORDINATOR. Patient was left sitting in bedside chair with call light within reach, chair alarm tested and attached to patient and LEs in elevated position. Patient is very weak and has increased knee buckling and LOB increasing fall risk!!!!!! Patient was 1:1 with this SECURITIES COUNSELOR for 20 minutes total. QIANA KEARNS PTA this SECURITIES COUNSELOR
[2020-02-23 20:00] VITALS: BP 100/46
--- NOTE | 2020-02-23 20:00 | NUR ---
RESTING IN BED WITH EYES CLOSED. RESPIRATIONS EASY & UNLABORED ON ROOM AIR. CALL LIGHT WITHIN REACH.
--- NOTE | 2020-02-23 22:00 | NUR ---
TOOK MEDICATION WITHOUT DIFFICULTY; VOICES NO C/O AT THIS TIME. CALL LIGHT WITHIN REACH.
[2020-02-24] VITALS: BP 100/60
--- NOTE | 2020-02-24 03:00 | NUR ---
BATHED BY PA'S AT THIS TIME.
[2020-02-24 06:07] LABS: BASO # 0.1 10*3/uL (0.0-0.1); EOS # 0.6 10*3/uL (0.0-0.4); EOS % 6.8 % (1.0-4.0); HEMATOCRIT 25.2 % (37.0-47.0); HEMOGLOBIN 8.2 g/dl (12.0-16.0); LYMPH # 2.6 10*3/uL (1.3-4.4); LYMPH % 26.9 % (27.0-41.0); MEAN CELL VOLUME 85.7 fl (81.0-99.0); MEAN CORPUSCULAR HGB 27.9 pg (27.0-31.0); MEAN CORPUSCULAR HGB CONC 32.5 g/dl (33.0-37.0); MEAN PLATELET VOLUME 12.4 fl (9.6-12.3); MONO # 0.9 10*3/uL (0.1-1.0); MONO % 9.7 % (3.0-9.0); NEUT # 5.2 10*3/uL (2.3-7.9); NEUT % 55.3 % (47.0-73.0); PLATELET COUNT AUTOMATED 98 10*3/uL (130-400); RED BLOOD COUNT 2.94 10*6/uL (4.10-5.10); RED CELL DISTRI WIDTH 20.5 % (0-14.5); WHITE BLOOD COUNT 9.5 10*3/uL (4.8-10.8)
[2020-02-24 06:22] LABS: INTERNATIONAL NORM RATIO 1.4 (2.0-3.5)
[2020-02-24 07:08] LABS: ALBUMIN 2.2 gm/dl (3.1-4.5); CREATININE 3.79 mg/dL (0.55-1.02); PHOSPHOROUS 4.5 mg/dL (2.5-4.9); POTASSIUM 5.2 mmol/L (3.5-5.1)
[2020-02-24 07:14] LABS: ALBUMIN 2.2 gm/dl (3.1-4.5); CREATININE 3.71 mg/dL (0.55-1.02); PHOSPHOROUS 4.4 mg/dL (2.5-4.9); POTASSIUM 5.1 mmol/L (3.5-5.1); TOTAL PROTEIN 7.1 gm/dL (6.4-8.2)
[2020-02-24 08:00] VITALS: BP 100/55
--- NOTE | 2020-02-24 10:35 | NUR ---
Discussed discharge planning with Dr. Zepeda. Dr. Zepeda and daughter, Evelyn, would like a referral sent to [facility]. Will notify naval surface fire support planner/criminal justice social worker.
[2020-02-24 12:00] VITALS: BP 108/95
[2020-02-24 16:00] VITALS: BP 106/43
--- NOTE | 2020-02-24 17:35 | NUR ---
ZOFRRAN GIVEN FOR C/O NAUSEA. WILL MONITOR.
[2020-02-24 20:00] VITALS: BP 96/44
[2020-02-25] VITALS: BP 119/62
[2020-02-25 06:28] LABS: INTERNATIONAL NORM RATIO 1.4 (2.0-3.5)
[2020-02-25 08:00] VITALS: BP 128/50
[2020-02-25 08:13] VITALS: BP 114/40; BP 150/80
--- NOTE | 2020-02-25 08:21 | NUR ---
24 HR chart check completed.
--- NOTE | 2020-02-25 09:00 | NUR ---
SLEEPING, AWAKENS EASILY. RESPIRATIONS EASY. LUNGS DIMINISHED, CLEAR. PULSE OX 96% 2L HUMIDIFIED. TESIO INTACT TO LEFT CHEST, DRESSING CHANGED D/T SOILING. TRACE EDEMA LLE WITH BILATERAL TUBI-WASTEWATER TREATMENT OPERATOR AND HEEL PROTECTORS IN PLACE. CALL LIGHT WITHIN REACH. NO VOICED COMPLAINTS. BED ALARM MAINTAINED FOR SAFETY
[2020-02-25 11:06] LABS: HEP B CORE AB, IGM Negative (Negative); HEPATITIS B SURFACE AG Negative (Negative); HEPATITIS C VIRUS ANTIBODY 0.1 s/co (0.0-0.9)
[2020-02-25 12:00] VITALS: BP 122/42
[2020-02-25 16:00] VITALS: BP 122/44
[2020-02-25 20:00] VITALS: BP 109/46
[2020-02-26] VITALS: BP 98/48
[2020-02-26 06:31] LABS: INTERNATIONAL NORM RATIO 1.5 (2.0-3.5)
--- NOTE | 2020-02-26 07:30 | NUR ---
OT NOTE Pt was seen this A.M. 1:1 for 20 minute OT session. Upon arrival pt was supine in bed. Pt identified by name and and had no complaints at this time other than generalized weakness. Pt presented to therapy with continuous 2L-O2 via NC which she remained on throughout the entire session. Pt transferred supine to sit EOB with modA X 2. Pt was educated on bed mobility techniques for increased I, pt presented with fair carry over. While sitting EOB pt donned B socks with maxA due to F- sitting balance. Sit to stand completed from bed level with Wilbur x 2 and use of w/w for UE support. Functional mobility was completed to the bedside commode with Wilbur and use of w/w. Throughout pt presented with one episode of B knees buckling that required maxA X 2 to correct. Pt transferred on to the bedside commode with Wilbur for safety with alignment and off with Wilbur X 1. Clothing management completed with modA and toilet hygiene completed with maxA due to being unsteady without UE support. Functional mobility was then completed to the recliner with Wilbur X 1 and use of w/w, Pt had bouts of B knees buckling however was able to self correct these times. Pt was left sitting reclined in the recliner with call light in hand, tray table in place, and bed alarm activated for safety. Continue with rec D/C plan to SNF. HENRI Harden
--- NOTE | 2020-02-26 07:30 | NUR ---
PHYSICAL THERAPY PT SUPINE IN BED UPON ARRIVAL. PT IDENTIFIED BY NAME AND ON NAME BAND. PT AGREED TO ALL PT TREATMENT THIS VISIT. PT HAD BED ALARM ON. PT PERFORMED BED MOBILITY WITH MODA X2 WITH VC'S FOR SAFETY AND TECHNIQUE. PT REQUIRED VC'S CONSTANT TO FOLLOW TASKS. PT PERFORMED STS FROM EOB TO FWW WITH LAURA X2 WITH VC'S FOR SAFETY. PT PERFORMED STAND PIVOT TRANSFER TO [facility] WITH LAURA AND VC'S TO PERFORMED TASK AND FOR SAFETY. PT PERFORMED STS TO AND FROM BS WITH LAURA AND VC'S FOR SAFETY. PT GAIT TRAINED 10FT X 1 WITH FWW AND LAURA X1 WITH VC'S FOR POSTURE AND SAFETY WITH WALKER. PT HAD ONE TIME WHERE PT KNEES BUCKLED AND PT WAS ABLE TO BRING SELF BACK TO FULL STANDING WITH LAURA. PT PERFORMES STS TO RECLINER FROM WALKER WITH VC'S FOR SAFETY AND PROPER TECHNIQUE. PT IN RELCINER WITH BODY ALARM ON, LE ELEVATED AND CALL LIGHT IN HAND. PT SEEN 1:1 FOR 25MINS. PT STATED NO OTHER NEEDED AT THIS TIME. VONDA BUSTOS PTA
--- NOTE | 2020-02-26 08:58 | NUR ---
[facility] faxed clinical inforamtion for new patient referral on this date. Pending acceptance at this time.
--- NOTE | 2020-02-26 08:59 | NUR ---
New patient referral was faxed to [facility]. Pending acceptance.
--- NOTE | 2020-02-26 12:46 | NUR ---
PROGRESS NOTES, HISTORY AND PHYSICAL AND LABS FAXED TO [facility] TO SET UP FOR OP DIALYSIS.
--- NOTE | 2020-02-26 12:53 | NUR ---
OT NOTE Attempted to see pt this P.M. for second OT session and upon arrival pt was out of the room for dialysis. Will check back at a later time/date and continue with POC as able. TATI Harden/Evelio
--- NOTE | 2020-02-26 13:45 | NUR ---
PHYSICAL THERAPY On MEAT SELECTOR arrival to room for afternoon session, pt is in dialysis. Treatment will be attempted at a later date according to DAYNE. Rachele Knott MEAT SELECTOR
--- NOTE | 2020-02-26 14:18 | NUR ---
Patient denied at [facility] on this date because they feel she is more appropriate for an LTACH.
--- NOTE | 2020-02-26 14:35 | NUR ---
SPOKE WITH PT DAUGHTER JUAQUIN AND INFORMED HER THAT PT HAS BEEN DENIED AT [facility]. SHE WANTS PT REFERRED TO [facility]. TALKED WITH QUYNH AND HE WILL SEND REFERRAL.
--- NOTE | 2020-02-26 14:58 | NUR ---
Updates faxed to [facility] on this date. New Patient referral faxed to [facility].
--- NOTE | 2020-02-26 15:51 | NUR ---
PHYSICAL THERAPY CO-SIGN I approve of the Physical Therapy notes written above. NURYS SULLIVAN PT, DPT
[2020-02-26 16:00] VITALS: BP 128/42
--- NOTE | 2020-02-26 17:22 | NUR ---
PT RESTING IN BED, EATING DINNER/ NO DISTRESS NOTED. WILL MONITOR
--- NOTE | 2020-02-26 18:00 | NUR ---
[facility] ALARMING V TACH WHILE PT UP ON BEDSIDE COMMODE. . NO COMPLAINS FROM PT. NO SYMPTOMS NOTED EXCEPT JERKINESS DR YANG CALLED AND NOTIFIED OF RHYTHM NO NEW ORDERS RECIEVED
--- NOTE | 2020-02-26 19:17 | NUR ---
24 HR chart check completed.
[2020-02-26 20:00] VITALS: BP 101/43
--- NOTE | 2020-02-26 21:00 | NUR ---
RESTING WITH EYES CLOSED. PLEASANTLY CONFUSED. RESPIRATIONS EASY. LUNGS DIMINISHED, CLEAR. PULSE OX 100% 2L HUMIDIFIED. +1 BLE EDEMA L>R WITH TUBI-ZOOGLER AND HEEL PROTECTORS IN PLACE. CALL LIGHT WITHIN REACH. NO VOICED COMPLAINTS. BED ALARM IN PLACE FOR SAFETY
[2020-02-27] VITALS: BP 110/42
--- NOTE | 2020-02-27 | NUR ---
SLEEPING. RESPIRATIONS EASY. VSS. CALL LIGHT WITHIN REACH. BED ALARM MAINTAINED FOR SAFETY
--- NOTE | 2020-02-27 05:18 | NUR ---
ZABRINAROMELIA Kathy [id number] Please refer to the physician's history and physical for past medical history, comorbid conditions, and allergies. Diagnosis: WORSENING KIDNEY FAILURE,NEED FOR DIALYSIS Karthik Score: 12,HIGH RISK WOUND DESCRIPTIONS: Wound Number: 1 Location of the wound: left arm proximal Type of wound: skin tear Thickness: Partial Size: 0.9cm x 0.7cm x 0.1cm Tunneling: none Undermining: none Sinus Tract: none Presence of Exudate: Serosanguineous Amount: Light Color: Red Odor: None Periwound Skin Appearance: Normal Wound edges: approximated Pain (associated with wound): none at time of assessment How does patient state this happened? pt is unsure how this happened Wound Number:2 Right forearm distal skin intact at time of assessment Wound Number:3 Bilateral feet have several areas that are discolored at time of assessment all areas at time of assessment are blanchable. No open areas noted at time of assessment no drainage noted at time of assessment to bilateral feet. Wound Number: 4 Location of the wound: Right upper arm Type of wound: scab Thickness: Partial Size: 0.6cm x 0.3cm x <0.1cm Tunneling: none Undermining: none Sinus Tract: none Presence of Exudate: none Amount: none Color: Red Odor: None Periwound Skin Appearance: Normal Wound edges: approximated Pain (associated with wound): none at time of assessment How does patient state this happened? pt is unsure how this happened Wound Number: 5 Location of the wound: left buttocks Type of wound: stage 2 Thickness: Partial Size: 0.7cm x 1.3cm x 0.1cm Tunneling: none Undermining: none Sinus Tract: none Presence of Exudate: Serosanguineous Amount: Light Color: Red Odor: None Periwound Skin Appearance: Normal Wound edges: approximated Pain (associated with wound): none at time of assessment How does patient state this happened? pt is unsure how this happened Wound Number:6 Left upper buttocks/hip skin intact at time of assessment. Wound Number: 7 & 10 Location of the wound: left heel Type of wound: unstageable Size: 2.2cm x 4.4cm x <0.1cm Tunneling: none Undermining: none Sinus Tract: none Presence of Exudate: none Amount: None Color: black, yellow, brown Odor: None Periwound Skin Appearance: Normal Wound edges: approximated Pain (associated with wound): none at time of assessment How does patient state this happened? pt unsure how this happened Wound Number: 8 Location of the wound: right buttocks extends to coccyx Type of wound: stage 2 Thickness: Partial Size: 4.3cm x 5.0cm x 0.1cm Tunneling: none Undermining: none Sinus Tract: none Presence of Exudate: Serosanguineous Amount: Light Color: Red Odor: None Periwound Skin Appearance: Normal Wound edges: approximated Pain (associated with wound): none at time of assessment How does patient state this happened? pt is unsure how this happened Wound Number:9 Left forearm distal skin intact at time of assessment. Wound Number: 7 & 10 Location of the wound: left heel Type of wound: unstageable Size: 2.2cm x 4.4cm x <0.1cm Tunneling: none Undermining: none Sinus Tract: none Presence of Exudate: none Amount: None Color: black, yellow, brown Odor: None Periwound Skin Appearance: Normal Wound edges: approximated Pain (associated with wound): none at time of assessment How does patient state this happened? pt unsure how this happened Surface the patient is resting on: Position Pro SKIN PREVENTION RECOMMENDATION: 1. Pressure redistribution support surface as appropriate 2. Elevate heels 3. Remove boots/TEDS every shift and reapply 4. Head of bed 30 degrees as tolerated 5. Assess nutrition and hydration 6. Manage moisture 7. Avoid the use of containment devices while in bed 8. Use absorptive products on surfaces limit layers of linens on bed 9. Turn and reposition every 1-2 hours in bed and every 1 hour in chair as tolerated 10. Weight shifts every 15 minutes while up in chair 11. Offloading with pillows or device to keep heels elevated off bed 12. Monitor skin at least every shift 13. Inspect under medical devices twice a day WOUND TREATMENT RECOMMENDATIONS: Continue wheelchair cushion when oob. Continue heel raiser pro boots to bilateral feet. D/C stage 2 guidelines: Cleanse Left buttocks with nss and apply sureprep around the wound hydrogel to wound bed and cover with optifoam gentle every 2 days and prn for soiling. Continue calazime ointment every shift. Continue partial thickness guidelines: Cleanse left arm proximal, right upper arm with nss and apply sureprep around the wound hydrogel to wound bed and cover with optifoam gentle every 2 days and prn for soiling. DTI guidelines: Apply sureprep to left heel proximal and left heel distal allow time to dry and then apply optifoam gentle.
[2020-02-27 05:56] LABS: ALBUMIN 2.3 gm/dl (3.1-4.5); CREATININE 3.47 mg/dL (0.55-1.02); POTASSIUM 4.6 mmol/L (3.5-5.1); TOTAL PROTEIN 7.3 gm/dL (6.4-8.2)
--- NOTE | 2020-02-27 06:00 | NUR ---
SLEPT THROUGHOUT NIGHT WITH NO DISTRESS NOTED. RESPIRATIONS EASY. CALL LIGHT WITHIN REACH. BED ALARM MAINTAINED FOR SAFETY
[2020-02-27 06:18] LABS: BASO # 0.1 10*3/uL (0.0-0.1); BASO % 0.9 % (0.0-1.0); EOS # 0.8 10*3/uL (0.0-0.4); EOS % 7.8 % (1.0-4.0); HEMATOCRIT 26.7 % (37.0-47.0); HEMOGLOBIN 8.4 g/dl (12.0-16.0); LYMPH # 3.1 10*3/uL (1.3-4.4); LYMPH % 31.1 % (27.0-41.0); MEAN CELL VOLUME 89.6 fl (81.0-99.0); MEAN CORPUSCULAR HGB 28.2 pg (27.0-31.0); MEAN CORPUSCULAR HGB CONC 31.5 g/dl (33.0-37.0); MEAN PLATELET VOLUME 12.6 fl (9.6-12.3); MONO # 0.9 10*3/uL (0.1-1.0); MONO % 9.1 % (3.0-9.0); NEUT % 50.6 % (47.0-73.0); PLATELET COUNT AUTOMATED 69 10*3/uL (130-400); RED BLOOD COUNT 2.98 10*6/uL (4.10-5.10); RED CELL DISTRI WIDTH 21.4 % (0-14.5)
[2020-02-27 06:31] LABS: INTERNATIONAL NORM RATIO 1.8 (2.0-3.5)
[2020-02-27 07:42] LABS: VITAMIN D, 25-HYDROXY 33.6 ng/mL (30-100)
[2020-02-27 07:43] LABS: FERRITIN 853.8 ng/mL (10.0-291.0)
--- NOTE | 2020-02-27 07:50 | NUR ---
PHYSICAL THERAPY PT SUPINE IN BED UPON ARRIVAL WITH BED ALARM ON. PT AGREED TO ALL PHYSCIAL THERAPY TREATMENT THIS VISIT. PT PERFORMED BED MOBILITY WITH MODA X2 AND VC'S TO USE BED RAIL. PT PERFORMED STS FROM EOB WITH MODA X2 AND VC'S FOR SAFETY. PT PERFORMED STAND PIVOT TRANSFER FROM EOB TO RECLINER WITH MODA X2. PT PERFORMED THE FOLLOWING SEATED EXERCISES WITH TACTILE CUES TO INCREASE LE STRENGTH LAQ AND MARCHING. PT PERFORMED STS TO AND FROM RECLINER WITH MODA X2 WITH ONE STANDING TOLERANCE FOR 60SEC WITH 8 KNEE KERRY AND ONCE FOR 120SEC WITH 2 KNEE KERRY. PT REQUIRED MAXA X2 TO GET BACK TO NEUTRAL FROM KNEE KERRY. PT SITTING IN RECLINER WITH BODY ALARM ON AND CALL LIGHT IN HAND. PT HAS REPROTED NO OTHER NEEDS AT THIS TIME. PT SEEN 1:1 FOR 20 MINS. VONDA BUSTOS PTA
[2020-02-27 08:00] VITALS: BP 130/54
--- NOTE | 2020-02-27 08:00 | NUR ---
PT RESTING IN BED NO DISTRESS NOTED. WILL MONITOR
--- NOTE | 2020-02-27 08:10 | NUR ---
OT NOTE Pt was seen this A.M. 1:1 for 24 minute OT session. Upon arrival pt was supine in bed. Pt identified by name and and had complaints of "I am just so jerky and I don't know why." Pt presented to therapy with continuous 2L-O2 via NC which she remained on throughout the entire session. Pt transferred supine to sit EOB with modA X 2 and use of bed rail for UE support. While sitting EOB pt presented with multiple LOB due to "jerky" movements in BLE's, BUE's, and torso resulting in min-modA to correct. Sit to stand completed from the bed level with modA X 2 followed by standing pivot from the EOB to the recliner with modA X 2. While sitting in the recliner requested for pt to tung B socks and pt was unable to due to "jerky" movements. Pt then completed two other sit to stand transfers from chair level with modA X 2 and use of w/w for UE support. Challenged pt's static standing tolerance needed for increased I and enhanced safety. Pt was able to tolerate first attempt for aprox 60 seconds, throughout pt's B knees buckled 8 times all requiring maxA X 2 to correct. Second attempt pt tolerated aprox 2 minutes with 2 B knee buckling episodes that again required maxA X 2 to correct. Due to level of fatigue and B knees buckling functional mobility was not completed at this time. Pt was left sitting reclined in the recliner with call light in hand, tray table in place, and body alarm activated for safety. Continue with rec D/C plan to SNF. HENRI Harden
--- NOTE | 2020-02-27 09:59 | NUR ---
Spoke to daughter, Evelyn, regarding [facility] vs [facility]. Evelyn would prefer [facility] but if [facility] is unable to take the patient [facility] would be fine. Spoke to Alfonzo at [facility] regarding dialysis. Patient would be scheduled TTS with a chair time of 6am. Notified socially responsible investment adviser who is following for SNF referrals.
[2020-02-27 12:00] VITALS: BP 128/58
--- NOTE | 2020-02-27 13:45 | NUR ---
Notified Dr. Thorne that patient can be discharged to [facility] when medically stable as [facility] is not able to accept patient. foster care worker following.
--- NOTE | 2020-02-27 15:23 | NUR ---
Received call from patient's daughter regarding daughter only wanting patient to go to [facility] or [facility] due to Dr. Mccabe and Dr. Zepeda not being able to follow her anywhere else. She states she wants her mother to continue the care she has received here at the hospital, that they know everything that is going on. Asked daughter to reach out to Demetria Mello at [facility] as [facility] was not accepting patient. She stated she will call and see. telephone lineworker notified.
[2020-02-27 16:00] VITALS: BP 107/49
[2020-02-27 20:00] VITALS: BP 123/80
--- NOTE | 2020-02-27 20:02 | NUR ---
24 HR chart check completed.
--- NOTE | 2020-02-27 20:30 | NUR ---
SITTING IN RECLINER WITH NO DISTRESS NOTED. RESPIRATIONS EASY. LUNGS DIMINISHED, CLEAR. PULSE OX 100% 2L HUMIDIFIED. TESIO LEFT CHEST INTACT. +2 BLE EDEMA L>R WITH BILATERAL TUBI-SECRETARY ADMINISTRATIVE ASSISTANT AND HEEL PROTECTORS IN PLACE. CALL LIGHT WITHIN REACH. BODY ALARM IN PLACE FOR SAFETY
[2020-02-28] VITALS: BP 121/46
--- NOTE | 2020-02-28 | NUR ---
SLEEPING. RESPIRATIONS EASY. VSS. CALL LIGHT WITHIN REACH. BED ALARM MAINTAINED
[2020-02-28 05:31] LABS: ALBUMIN 2.3 gm/dl (3.1-4.5); CREATININE 4.35 mg/dL (0.55-1.02); PHOSPHOROUS 3.5 mg/dL (2.5-4.9); POTASSIUM 4.1 mmol/L (3.5-5.1); TOTAL PROTEIN 7.5 gm/dL (6.4-8.2)
[2020-02-28 05:32] LABS: INTERNATIONAL NORM RATIO 2.6 (2.0-3.5)
--- NOTE | 2020-02-28 06:00 | NUR ---
SLEPT THROUGHOUT NIGHT WITH NO DISTRESS NOTED. RESPIRATIONS EASY. CALL LIGHT WITHIN REACH. BED ALARM MAINTAINED FOR SAFETY
[2020-02-28 06:03] LABS: BASO # 0.1 10*3/uL (0.0-0.1); BASO % 0.8 % (0.0-1.0); EOS % 9.9 % (1.0-4.0); HEMATOCRIT 27.4 % (37.0-47.0); HEMOGLOBIN 8.4 g/dl (12.0-16.0); LYMPH # 2.4 10*3/uL (1.3-4.4); LYMPH % 23.9 % (27.0-41.0); MEAN CELL VOLUME 91.3 fl (81.0-99.0); MEAN CORPUSCULAR HGB CONC 30.7 g/dl (33.0-37.0); MEAN PLATELET VOLUME 12.3 fl (9.6-12.3); MONO % 9.9 % (3.0-9.0); NEUT # 5.5 10*3/uL (2.3-7.9); NEUT % 55.2 % (47.0-73.0); PLATELET COUNT AUTOMATED 82 10*3/uL (130-400); RED CELL DISTRI WIDTH 22.3 % (0-14.5); WHITE BLOOD COUNT 9.9 10*3/uL (4.8-10.8)
--- NOTE | 2020-02-28 07:50 | NUR ---
PATIENT TAKEN TO DIALYSIS PER SCHEDULE.
[2020-02-28 08:00] VITALS: BP 121/40
--- NOTE | 2020-02-28 08:42 | NUR ---
OT NOTE Attempted to see pt this A.M. for OT session and upon arrival pt was out of the room for dialysis. Will check back at a later time/date and continue with POC as able. TATI Harden/Evelio
--- NOTE | 2020-02-28 09:11 | NUR ---
Spoke to daughter, Evelyn, regarding discharge planning. She did speak to [facility] yesterday and they are not able to meet her needs. She would like to talk to hospice and get back to later today as she had spoken to one of her friend's whose mother had hospice and it worked great. Awaiting return call. community worker continuing to work on [employer] [place].
--- NOTE | 2020-02-28 10:21 | NUR ---
ZOFRAN GIVEN PER PRN ORDER FOR C/O NAUSEA. WILL MONITOR EFFECTIVENESS.
--- NOTE | 2020-02-28 11:02 | NUR ---
PHYSICAL THERAPY Patient was out of her room for dialysis this am not available for treatment at this time. Will continue per POC this pm as able. Michael Peterson, CREWMAN ARMOURED PERSONNEL CARRIER [id number]
--- NOTE | 2020-02-28 12:41 | NUR ---
PHYSICAL THERAPY Patient supine in bed upon entry to room and agreeable to skilled physical therapy session. Patient A&Ox2 and identified via wristband. Patient uncovered from blankets and started to assist with bed mobility. Patient transferred from supine position to EOB with MinAx2. Patient sat EOB for ~2minutes with mild complaint of dizziness. Education on deep breathing and relaxation techniques, as well as focusing on one spot to reduce dizziness. Patient assisted from sitting EOB to standing at FWW with MinAx2. Patient gait trained 5'x1 with FWW and MinAx2 from bed to recliner chair. Verbal and tactile cueing needed for safety. Education on walker safety and sequence of foot placement with gait. No knee buckling noted this session. Patient returned to seated position in chair. Comfortable, call bledsoe within reach. Total treatment time: Gait 15 minutes. Recommend SNF at discharge. Thank you. Jessica Desir,PT,DPT.
--- NOTE | 2020-02-28 12:41 | NUR ---
OT NOTE Patient was seen this date for OT treatment to maximize independence and safety with ADLs. Nursing gave approval to see patient. Patient was supine in bed upon arrival and was agreeable to OT treatment. Patient identified by name and birthdate by her wrist band. Patient was A&Ox2 and was re-oriented to time. Patient had bouts of confusion, stating her daughter was at the hospital. Patient had a large BM at start of treatment and required Max Ax2 to complete toileting hygiene and clothing management while supine. Patient transferred to EOB with Min Ax2 with verbal cues for safe hand placement on the handrails. Patient sat EOB for approximately 2 minutes and reported "dizziness", cued for visual fixation technique and deep breathing. Patient completed a functional sit/stand Min Ax2 with verbal cues for hand placement on the ww. Patient completed functional mobility to the chair, no knee buckling noted this session. Patient demonstrated bilateral UE "jerky" movements while completing a handwashing task seated in the recliner. Patient concluded her treatment in the chair, alarm on, call bledsoe in hand, and all needs within reach. Nursing notified of patient's location, functional status, and bouts of confusion. Patient to continue with POC as able, recommend discharge to SNF. Thank you. Sharonda Echeverria Time In- 12:41 Time Out- 13:08
--- NOTE | 2020-02-28 12:56 | NUR ---
Received call from daughter, Evelyn, regarding discharge planning. She is agreeable to [facility]. She has spoke to Gretchen. She states Dr. Zepeda said patient may only need dialysis 2 days a week. Confirmed with Dr. Zepeda. She states if she is needed to transport patient to dialysis she can do that before her work. Spoke to Alfonzo at [facility] regarding 2 days of dialysis. He is going to call Dr. Zepeda and return call to . Alfonzo has spoke to Francois at [facility]. reinforcing iron worker helper notified. Daughter said Dr. Mccabe is trying to get privileges at [facility] to be able to see patient. Awaiting return call from Alfonzo.
--- NOTE | 2020-02-28 13:13 | NUR ---
Received call back from Alfonzo at [facility]. He spoke to Dr. Zepeda. Patient's dialysis days will be Wednesday and . Explained patient had dialysis today and he states they would do a shortened dialysis tomorrow and then resume next Wednesday. Notified Dr. Thorne. Will notify Alfonzo when patient is being discharged.
[2020-02-28] MEDS ORDERED: XIFAXAN550 MG PO (13:30)
--- NOTE | 2020-02-28 13:31 | NUR ---
Spoke to Dr. Zepeda and Dr. Mccabe regarding discharging patient today to [facility]. Both are agreeable. Notified Dr. Thorne.
--- NOTE | 2020-02-28 13:33 | NUR ---
PHYSICAL THERAPY CO-SIGN I approve of the Physical Therapy notes written above. NURYS SULLIVAN PT, DPT
--- NOTE | 2020-02-28 13:35 | NUR ---
OCCUPATIONAL THERAPY CO-SIGN I approve of the Occupational Therapy notes written above. LISA TAYLOR, OTR/L
--- NOTE | 2020-02-28 13:43 | NUR ---
Patient is now discharged to [facility] via [facility] @ [id number]. Dc information faxed, NH, nursing/war film library clerk all notified. CARMEN Pimentel to contact family about time. Nessa completed.
--- NOTE | 2020-02-28 13:43 | NUR ---
completed hospital exemption online for [facility] for [facility].
--- NOTE | 2020-02-28 13:45 | NUR ---
Notified daughter, Evelyn, of patient discharge via [facility] at 1530. Daughter concerned about personal belongings patient has with her. Spoke to nurse regarding personal belongings and the daughter's concern.
--- NOTE | 2020-02-28 14:35 | NUR ---
Notified Alfonzo at [facility] of patient discharge today.
--- NOTE | 2020-02-28 15:30 | NUR ---
Discharge instructions reviewed with patient/family. Patient receptive and verbalizes understanding. Follow-up care arranged. Written instructions given to patient/family. MARCO HYDE.
--- NOTE | 2020-02-28 15:34 | NUR ---
PT REFUSED DISCHARGE PHOTOS.
--- NOTE | 2020-02-28 16:06 | NUR ---
REPORT GIVEN TO NURSE AT [facility].
== END 2020-02-28 16:06 | disposition other institution (70) | DRG 441 ==
LOC: 4E 10:28
PROVIDERS: Internal Medicine; Internal Medicine Nephrology; Student in an Organized Health Care Education/Training Program; ADMIT Internal Medicine
PROC: 30233K1 Transfusion of Nonautologous Frozen Plasma into Peripheral Vein, Percutaneous Approach (ICD-10-PCS; principal; 2020-02-19)
PROC: 30233N1 Transfusion of Nonautologous Red Blood Cells into Peripheral Vein, Percutaneous Approach (ICD-10-PCS; 2020-02-22)
PROC: 5A1D70Z Performance of Urinary Filtration, Intermittent, Less than 6 Hours Per Day (ICD-10-PCS; 2020-02-22)
PROC: 02HV33Z Insertion of Infusion Device into Superior Vena Cava, Percutaneous Approach (ICD-10-PCS; 2020-02-22)
PROC: 5A1D70Z Performance of Urinary Filtration, Intermittent, Less than 6 Hours Per Day (ICD-10-PCS; 2020-02-23)
PROC: 5A1D70Z Performance of Urinary Filtration, Intermittent, Less than 6 Hours Per Day (ICD-10-PCS; 2020-02-24)
PROC: 5A1D70Z Performance of Urinary Filtration, Intermittent, Less than 6 Hours Per Day (ICD-10-PCS; 2020-02-28)
DX: K72.00 Acute and subacute hepatic failure without coma (principal); N17.0 Acute kidney failure with tubular necrosis; E43 Unspecified severe protein-calorie malnutrition; I13.0 Hypertensive heart and chronic kidney disease with heart failure and stage 1 through stage 4 chronic kidney disease, or unspecified chronic kidney disease; L03.116 Cellulitis of left lower limb; R18.8 Other ascites; E72.20 Disorder of urea cycle metabolism, unspecified; F33.2 Major depressive disorder, recurrent severe without psychotic features; Z16.21 Resistance to vancomycin; N04.9 Nephrotic syndrome with unspecified morphologic changes; N18.4 Chronic kidney disease, stage 4 (severe); K72.90 Hepatic failure, unspecified without coma; I50.813 Acute on chronic right heart failure; K74.60 Unspecified cirrhosis of liver; L30.4 Erythema intertrigo; E87.5 Hyperkalemia; K21.9 Gastro-esophageal reflux disease without esophagitis; E78.5 Hyperlipidemia, unspecified; E11.22 Type 2 diabetes mellitus with diabetic chronic kidney disease; E11.51 Type 2 diabetes mellitus with diabetic peripheral angiopathy without gangrene; M81.0 Age-related osteoporosis without current pathological fracture; I35.0 Nonrheumatic aortic (valve) stenosis; R91.1 Solitary pulmonary nodule; E11.40 Type 2 diabetes mellitus with diabetic neuropathy, unspecified; E03.9 Hypothyroidism, unspecified; F41.9 Anxiety disorder, unspecified; X58.XXXA Exposure to other specified factors, initial encounter; S91.302A Unspecified open wound, left foot, initial encounter; D64.9 Anemia, unspecified; A49.1 Streptococcal infection, unspecified site; Z95.0 Presence of cardiac pacemaker; Z79.4 Long term (current) use of insulin; Z86.14 Personal history of Methicillin resistant Staphylococcus aureus infection; Y93.89 Activity, other specified; Y92.89 Other specified places as the place of occurrence of the external cause; Y99.8 Other external cause status; Z82.49 Family history of ischemic heart disease and other diseases of the circulatory system; Z82.3 Family history of stroke; Z88.1 Allergy status to other antibiotic agents; Z88.8 Allergy status to other drugs, medicaments and biological substances; Z79.899 Other long term (current) drug therapy; Z79.01 Long term (current) use of anticoagulants

== ENCOUNTER → 2020-03-07 | Outpatient (CLI) | payer MEDICARE ==
[2020-03-07] VITALS (7 sets, daily range): BP systolic 117–126; BP diastolic 63–74
[~2020-03-07] MED LIST changes: +KEFLEX500 M1 PO; +XIFAXAN550 MG PO
== END | disposition home or self-care (01) ==
LOC: TRNFUSION 06:27
DX: D64.9 Anemia, unspecified (principal); N17.9 Acute kidney failure, unspecified; K72.90 Hepatic failure, unspecified without coma

== ENCOUNTER 2020-03-20 06:44 | Emergency (ER) | payer MEDICARE ==
[~2020-03-20 06:44] MED LIST changes: -KEFLEX500 M1 PO
[2020-03-20 07:17] LABS: HEMATOCRIT 30.8 % (37.0-47.0); MEAN CELL VOLUME 94.5 fl (81.0-99.0); MEAN CORPUSCULAR HGB 29.8 pg (27.0-31.0); MEAN CORPUSCULAR HGB CONC 31.5 g/dl (33.0-37.0); MEAN PLATELET VOLUME 11.6 fl (9.6-12.3); PLATELET COUNT AUTOMATED 117 10*3/uL (130-400); RED BLOOD COUNT 3.26 10*6/uL (4.10-5.10); RED CELL DISTRI WIDTH 19.6 % (0-14.5); WHITE BLOOD COUNT 13.9 10*3/uL (4.8-10.8)
[2020-03-20 07:33] LABS: ALBUMIN 1.9 gm/dl (3.1-4.5); ALKALINE PHOSPHATASE 203 U/L (45-117); BUN 22 mg/dl (7-24); CHLORIDE 108 mmol/L (98-107); CREATININE 4.46 mg/dL (0.55-1.02); POTASSIUM 5.3 mmol/L (3.5-5.1); SGOT/AST 89 IU/L (3-35); SGPT/ALT 36 U/L (12-78); SODIUM 139 mmol/L (136-145); TOTAL PROTEIN 7.6 gm/dL (6.4-8.2)
[2020-03-20 07:35] LABS: TROPONIN I < 0.015 ng/ml (<0.045)
[2020-03-20 07:38] LABS: BASOPHILS 1 % (0-1); PLATELET SUFFICIENCY LOW (NORMAL); TARGET CELLS FEW; TOTAL CELLS COUNTED 100 #CELLS
[2020-03-20 08:46] VITALS: BP 118/40
[2020-03-20 08:59] LABS: COLOR YELLOW (YELLOW)
[2020-03-20 09:00] LABS: BILIRUBIN 1+ (NEGATIVE); BLOOD 3+ (NEGATIVE); CLARITY CLOUDY (CLEAR); GLUCOSE NEGATIVE (NEGATIVE); KETONE 1+ (NEGATIVE); LEUKO ESTERASE 3+ (NEGATIVE); NITRITE NEGATIVE (NEGATIVE); UROBILINOGEN 0.2 E.U./dl (0.2-1.0); WBC TNTC wbc/hpf (0-5)
[2020-03-20] MEDS ORDERED: KEFLEX500 M1 PO (09:23)
== END 2020-03-20 09:55 | disposition home or self-care (01) ==
LOC: ED 06:44
PROVIDERS: Emergency Medicine
DX: N39.0 Urinary tract infection, site not specified (principal); R25.9 Unspecified abnormal involuntary movements; R41.82 Altered mental status, unspecified; E11.9 Type 2 diabetes mellitus without complications; K21.9 Gastro-esophageal reflux disease without esophagitis; I10 Essential (primary) hypertension; E78.00 Pure hypercholesterolemia, unspecified; M81.0 Age-related osteoporosis without current pathological fracture; Z91.048 Other nonmedicinal substance allergy status; Z88.8 Allergy status to other drugs, medicaments and biological substances; Z88.1 Allergy status to other antibiotic agents; Z79.899 Other long term (current) drug therapy; Z79.01 Long term (current) use of anticoagulants; Z98.890 Other specified postprocedural states; Z95.0 Presence of cardiac pacemaker; Z90.49 Acquired absence of other specified parts of digestive tract; Z90.711 Acquired absence of uterus with remaining cervical stump; Z86.14 Personal history of Methicillin resistant Staphylococcus aureus infection

== ENCOUNTER 2020-03-27 10:01 | Inpatient (IN) | payer MEDICARE ==
[~2020-03-27] VITALS: Ht 157.4 cm; Wt 67.8 kg
[2020-03-27 10:01] VITALS: BP 111/55
[~2020-03-27 10:01] MED LIST changes: +KEFLEX500 M1 PO; +MERREM IV500 MG IV
[2020-03-27 11:00] LABS: HEMATOCRIT 30.8 % (37.0-47.0); MEAN CELL VOLUME 93.1 fl (81.0-99.0); MEAN CORPUSCULAR HGB 29.6 pg (27.0-31.0); MEAN CORPUSCULAR HGB CONC 31.8 g/dl (33.0-37.0); MEAN PLATELET VOLUME 10.8 fl (9.6-12.3); NUCLEATED RED BLOOD CELL 0.1 10*3/uL (0.0-0.0); NUCLEATED RED BLOOD CELL 0.3 % (0.0-0.0); PLATELET COUNT AUTOMATED 98 10*3/uL (130-400); RED BLOOD COUNT 3.31 10*6/uL (4.10-5.10); RED CELL DISTRI WIDTH 18.6 % (0-14.5); WHITE BLOOD COUNT 14.3 10*3/uL (4.8-10.8)
[2020-03-27 11:19] LABS: CREATININE 4.77 mg/dL (0.55-1.02); POTASSIUM 4.9 mmol/L (3.5-5.1); TOTAL PROTEIN 7.5 gm/dL (6.4-8.2)
[2020-03-27 11:20] LABS: TROPONIN I 0.029 ng/ml (<0.045)
[2020-03-27 11:28] LABS: BASOPHILS 2 % (0-1); TOTAL CELLS COUNTED 100 #CELLS
[2020-03-27 11:29] LABS: PLATELET SUFFICIENCY LOW (NORMAL); POLYCHROMASIA SLIGHT; TARGET CELLS FEW
[2020-03-27 11:35] LABS: BILIRUBIN 3+ (NEGATIVE); CLARITY CLOUDY (CLEAR); GLUCOSE NEGATIVE (NEGATIVE); KETONE NEGATIVE (NEGATIVE)
[2020-03-27 11:36] LABS: BLOOD 3+ (NEGATIVE); LEUKO ESTERASE TRACE (NEGATIVE); NITRITE NEGATIVE (NEGATIVE); UROBILINOGEN 0.2 E.U./dl (0.2-1.0)
[2020-03-27 11:37] VITALS: BP 126/32
[2020-03-27 11:40] LABS: BACTERIA 4+; COLOR STRAW (YELLOW); EPITHELIAL CELLS 16-20; MUCOUS 2+; RBC TNTC rbc/hpf (0-2); WBC TNTC wbc/hpf (0-5)
[2020-03-27 12:10] VITALS: BP 121/44
[2020-03-27 12:55] VITALS: BP 133/43
--- NOTE | 2020-03-27 13:18 | NUR ---
RESTING IN BED WITH EYES CLOSED. RESPS ARE EASY AND NON LABORED.
[2020-03-27] MEDS ORDERED: EMOLLIENT500 GM T (15:33)
[2020-03-27] MEDS ORDERED: LACTULOSE10 GM/151 PO (15:36)
[2020-03-27] MEDS ORDERED: NORCO 5-325 TA1 EACH PO (15:41)
[2020-03-27] MEDS ORDERED: RENAL VITAMIN0.8 MG PO (15:43)
[2020-03-27] MEDS ORDERED: PROVENTIL HFA6.7 GM INH (15:43)
[2020-03-27] MEDS ORDERED: ZOFRAN4 MG PO (15:44)
[2020-03-27] MEDS ORDERED: VISTARIL25 MG PO (15:44)
[2020-03-27] MEDS ORDERED: ZYPREXA5 M1 PO (15:45)
--- NOTE | 2020-03-27 15:48 | NUR ---
MED REC UPDATED. NOTIFIED.
[2020-03-27 16:00] VITALS: BP 131/50
--- NOTE | 2020-03-27 16:00 | NUR ---
[facility] MADE AWARE OF PT ADMISSION.
--- NOTE | 2020-03-27 16:07 | NUR ---
CONSULT CALLED TO ANSWERING SERVICE. AWAITING CALL BACK.
--- NOTE | 2020-03-27 16:09 | NUR ---
ANA MARIA FROM [facility] CALLED BACK TO CONFIRM DIALYSIS DAYS. SAID SOMEONE WOULD BE HERE TOMORROW FOR HER TREATMENT.
--- NOTE | 2020-03-27 16:34 | NUR ---
SPOKE WITH REGARDING CONSULT. NO NEW ORDERS AT THIS TIME.
--- NOTE | 2020-03-27 17:25 | NUR ---
WOUND DRSGS APPLIED. WILL CONTACT PRIMARY TEAM FOR LEFT ARM WOUND ORDERS. PT SAT UP FOR DINNER AND SET UP. NO COMPLAINTS VOICED. HEEL PROTECTORS ON. DUREGESIC PATCH APPLIED TO RT BACK SHOULDER. CALL LIGHT IN REACH.
[2020-03-27 20:00] VITALS: BP 122/43
--- NOTE | 2020-03-27 20:00 | NUR ---
PATIENT RESTING IN BED. VOICES NO COMPLAINTS. STATES SHE FEELS GREAT. RESPIRATIONS EASY, NON LABORED ON 3L NC. BED IN LOWEST POSITION,CALL LIGHT WITHIN REACH. WILL CONTINUE TO MONITOR.
[2020-03-28] VITALS: BP 129/39
--- NOTE | 2020-03-28 04:00 | NUR ---
PATIENT SLEEPING, AROUSES EASILY. RESPIRATIONS EASY, NON LABORED. NO SIGNS OF DISTRESS. BED IN LOWEST POSITION,CALL LIGHT WITIIN REACH. BED ALARM ON. WILL CONTINUE TO MONITOR/
--- NOTE | 2020-03-28 05:32 | NUR ---
PATIENT COVID SWAB NOT DONE. PATIENT SWABBED AT THIS TIME.
[2020-03-28 06:07] LABS: CREATININE 5.37 mg/dL (0.55-1.02); POTASSIUM 5.1 mmol/L (3.5-5.1); TOTAL PROTEIN 7.3 gm/dL (6.4-8.2)
[2020-03-28 06:28] LABS: HEMATOCRIT 28.8 % (37.0-47.0); MEAN CELL VOLUME 90.9 fl (81.0-99.0); MEAN CORPUSCULAR HGB 29.3 pg (27.0-31.0); MEAN CORPUSCULAR HGB CONC 32.3 g/dl (33.0-37.0); MEAN PLATELET VOLUME 11.6 fl (9.6-12.3); NUCLEATED RED BLOOD CELL 0.1 10*3/uL (0.0-0.0); NUCLEATED RED BLOOD CELL 0.3 % (0.0-0.0); PLATELET COUNT AUTOMATED 107 10*3/uL (130-400); RED BLOOD COUNT 3.17 10*6/uL (4.10-5.10); WHITE BLOOD COUNT 15.9 10*3/uL (4.8-10.8)
[2020-03-28 06:43] LABS: INTERNATIONAL NORM RATIO 1.2 (2.0-3.5)
--- NOTE | 2020-03-28 06:47 | NUR ---
ZABRINAROMELIA Kathy [id number] Please refer to the physician's history and physical for past medical history, comorbid conditions, and allergies. Diagnosis: UTI ESRD NEEDING DIALYSIS LEFT LEG CELLULITIS Karthik Score: 16,AT RISK WOUND DESCRIPTIONS: Wound Number: 1 Location of the wound: Coccyx Type of wound: unstageable Thickness: Full Size: 5.0cm x 4.5cm x 0.1cm Tunneling: none Undermining: none Sinus Tract: none Presence of Exudate: Serosanguineous Amount: Moderate Color: Red, yellow, black Odor: None Periwound Skin Appearance: Erythema Wound edges: approximated Pain (associated with wound): none at time of assessment How does patient state this happened? pt unsure how this happened Wound Number: 2 Location of the wound: Right buttocks Type of wound: Stage 2 Thickness: Partial Size: 1.0cm x 0.5cm x 0.1cm Tunneling: none Undermining: none Sinus Tract: none Presence of Exudate: Serosanguineous Amount: Light Color: Red Odor: None Periwound Skin Appearance: Erythema Wound edges: approximated Pain (associated with wound): none at time of assessment How does patient state this happened? pt unsure how this happened Wound Number: 3 Location of the wound: Left buttocks Type of wound: stage 3 Thickness: Full Size: 2.0cm x 1.4cm x 0.1cm Tunneling: none Undermining: none Sinus Tract: none Presence of Exudate: Serosanguineous Amount: Light Color: Red, yellow, purple Odor: None Periwound Skin Appearance: Erythema Wound edges: approximated Pain (associated with wound): none at time of assessment How does patient state this happened? pt unsure how this happened Wound Number: 4 Location of the wound: Right anterior ankle Type of wound: DTI Size: 1.5cm x 3.0cm x <0.1cm Tunneling: none Undermining: none Sinus Tract: none Presence of Exudate: none Amount: none Color: dark red, purple Odor: None Periwound Skin Appearance: none Wound edges: approximated Pain (associated with wound): none at time of assessment How does patient state this happened? pt unsure how this happened Wound Number: 5 Location of the wound: Right achilles Type of wound: DTI Size: 1.4cm x 1.0cm x <0.1cm Tunneling: none Undermining: none Sinus Tract: none Presence of Exudate: none Amount: none Color: Red, purple Odor: None Periwound Skin Appearance: Normal Wound edges: approximated Pain (associated with wound): none at time of assessment How does patient state this happened? pt unsure how this happened Wound Number: 6 Location of the wound: Right heel Type of wound: unstageable Thickness: Full Size: 4.5cm x 5.5cm x 0.1cm Tunneling: none Undermining: none Sinus Tract: none Presence of Exudate: none Amount: none Color: Red, black, purple Odor: None Periwound Skin Appearance: Erythema Wound edges: approximated Pain (associated with wound): none at time of assessment How does patient state this happened? pt unsure how this happened Wound Number: 7 Location of the wound: Left forearm Type of wound: skin tear Thickness: Partial Size: 4.2cm x 4.0cm x 0.1cm Tunneling: none Undermining: none Sinus Tract: none Presence of Exudate: Serosanguineous Amount: Moderate Color: Red Odor: None Periwound Skin Appearance: Normal Wound edges: approximated Pain (associated with wound): none at time of assessment How does patient state this happened? pt unsure how this happened Wound Number: 8 Location of the wound: left lower leg proximal Type of wound: DTI Size: 1.0cm x 6.5cm x <0.1cm Tunneling: none Undermining: none Sinus Tract: none Presence of Exudate: none Amount: none Color: Red, purple Odor: None Periwound Skin Appearance: Normal Wound edges: approximated Pain (associated with wound): none at time of assessment How does patient state this happened? pt unsure how this happened Wound Number: 9 Location of the wound: Left lower leg distal Type of wound: DTI Size: 1.2cm x 14.5cm x <0.1cm Tunneling: none Undermining: none Sinus Tract: none Presence of Exudate: none Amount: none Color: Red, purple Odor: None Periwound Skin Appearance: none Wound edges: approximated Pain (associated with wound): none at time of assessment How does patient state this happened? pt unsure how this happened Wound Number: 10 Location of the wound: Distal top of foot Type of wound: Stage 1 Size: 2.2cm x 2.0cm x <0.1cm Tunneling: none Undermining: none Sinus Tract: none Presence of Exudate: none Amount: none Color: Red Odor: None Periwound Skin Appearance: none Wound edges: approximated Pain (associated with wound): none at time of assessment How does patient state this happened? pt unsure how this happened Wound Number: 11 Location of the wound: Proximal left side top of foot Type of wound: DTI Size: 1.0cm x 2.5cm x <0.1cm Tunneling: none Undermining: none Sinus Tract: none Presence of Exudate: none Amount: none Color: dark red, purple Odor: None Periwound Skin Appearance: Normal Wound edges: approximated Pain (associated with wound): none at time of assessment How does patient state this happened? pt unsure how this happened Wound Number: 12 Location of the wound: Proximal middle top of foot Type of wound: DTI Size: 1.5cm x 2.0cm x <0.1cm Tunneling: none Undermining: none Sinus Tract: none Presence of Exudate: none Amount: none Color: dark red, purple Odor: None Periwound Skin Appearance: Erythema Wound edges: approximated Pain (associated with wound): none at time of assessment How does patient state this happened? pt unsure how this happened Wound Number: 13 Location of the wound: Left achilles Type of wound: DTI Size: 1.2cm x 1.5cm x <0.1cm Tunneling: none Undermining: none Sinus Tract: none Presence of Exudate: none Amount: none Color: Red, purple Odor: None Periwound Skin Appearance: Erythema Wound edges: approximated Pain (associated with wound): none at time of assessment How does patient state this happened? pt unsure how this happened Surface the patient is resting on: Isoflex SKIN PREVENTION RECOMMENDATION: 1. Pressure redistribution support surface as appropriate 2. Elevate heels 3. Remove boots/TEDS every shift and reapply 4. Head of bed 30 degrees as tolerated 5. Assess nutrition and hydration 6. Manage moisture 7. Avoid the use of containment devices while in bed 8. Use absorptive products on surfaces limit layers of linens on bed 9. Turn and reposition every 1-2 hours in bed and every 1 hour in chair as tolerated 10. Weight shifts every 15 minutes while up in chair 11. Offloading with pillows or device to keep heels elevated off bed 12. Monitor skin at least every shift 13. Inspect under medical devices twice a day WOUND TREATMENT RECOMMENDATIONS: Wheelchair cushion when oob. Heel raiser pro boots to bilateral feet while in bed. Float bilateral lower extremities on pillows at all times. Consult Dr. Preciado for possible debridement of coccyx. Consult podiatry for areas to bilateral lower extremities. Venous and arterial studies due to non-healing wounds. Imaging stuides to bilateral heels due non-healing wounds. Unstageable guidelines: Cleanse coccyx with nss and apply sureprep around the wound therahoney to wound bed and cover with optifoam sacral gentle daily and prn for soiling Stage 1 guidelines: Apply sureprep to distal top of right foot allow time to dry then cover with optifoam gentle Full thickness guidelines: Cleanse left buttocks with nss and apply sureprep around the wound therahoney to wound bed and cover with optifoam sacral gentle daily and prn for soiling Partial thickness guidelines: Cleanse right buttocks with nss and apply sureprep around the wound therahoney to wound bed and cover with optifoam sacral gentle daily and prn for soiling. Unstageable: guidelines: Salmon right heel with betadine apply dry sterile dressing daily and prn for soiling DTI guidelines: Apply sureprep to left achilles, right achilles, Proximal middle top of foot, Proximal left side top of foot of right, right anterior ankle, left lower leg proximal, left lower leg distal, with and apply dry sterile dressing daily and prn for soiling. Skin tear guidelines: Cleanse left forearm with nss and apply sureprep around the wound hydrogel to wound bed versatel to wound bed and cover with optifoam gentle every 2 days and prn for soiling.
[2020-03-28 07:04] LABS: BASOPHILS 1 % (0-1); OVALOCYTES FEW; PLATELET SUFFICIENCY LOW (NORMAL); TARGET CELLS FEW; TOTAL CELLS COUNTED 100 #CELLS
[2020-03-28 07:05] LABS: POLYCHROMASIA SLIGHT
--- NOTE | 2020-03-28 09:09 | NUR ---
Dr. Griffiths notified of wound care recommendations.
--- NOTE | 2020-03-28 14:37 | NUR ---
INFORMED DR HENRY THAT PT WAS BEING MOVED TO 4TH FLOOR AND TRANFERRED TO HIS SERVICES.
--- NOTE | 2020-03-28 15:38 | NUR ---
Pt. is Short Term at [facility] and Can return to facility at discharge once medically Stable. Clinical Updates faxed to Facility [phone] Attn: Gretchen.
[2020-03-28 15:45] VITALS: BP 110/50
[2020-03-28 20:00] VITALS: BP 92/40
--- NOTE | 2020-03-28 20:58 | NUR ---
24 HR chart check completed.
--- NOTE | 2020-03-28 21:00 | NUR ---
SLEEPING, AWAKENS EASILY. RESPIRATIONS EASY. LUNGS DIMINISHED, CLEAR. PULSE OX 96% RA. TESIO INTACT LEFT CHEST. MIDLINE INTACT RIGHT ARM. BLE EDEMA NOTED WITH HEEL PROTECTORS IN PLACE. CALL LIGHT WITHIN REACH. NO VOICED COMPLAINTS
[2020-03-29] VITALS: BP 81/35; BP 90/52
--- NOTE | 2020-03-29 | NUR ---
SLEEPING. NO DISTRESS NOTED. RESPIRATIONS EASY. VSS. CALL LIGHT WITHIN REACH. BED ALARM MAINTAINED
--- NOTE | 2020-03-29 03:11 | NUR ---
Upon discharge recommend patient to follow up for wound care in outpatient setting continue current wound care orders at discharging facility.
--- NOTE | 2020-03-29 06:00 | NUR ---
SLEPT THROUGHOUT NIGHT WITH NO DISTRESS NOTED. RESPIRATIONS EASY. CALL LIGHT WITHIN REACH. NO VOICED COMPLAINTS THIS SHIFT
[2020-03-29 06:33] LABS: HEMATOCRIT 30.3 % (37.0-47.0); MEAN CELL VOLUME 92.4 fl (81.0-99.0); MEAN CORPUSCULAR HGB 29.6 pg (27.0-31.0); MEAN PLATELET VOLUME 11.3 fl (9.6-12.3); NUCLEATED RED BLOOD CELL 0.1 % (0.0-0.0); PLATELET COUNT AUTOMATED 93 10*3/uL (130-400); RED BLOOD COUNT 3.28 10*6/uL (4.10-5.10); RED CELL DISTRI WIDTH 17.9 % (0-14.5); WHITE BLOOD COUNT 14.6 10*3/uL (4.8-10.8)
[2020-03-29 06:48] LABS: POTASSIUM 4.4 mmol/L (3.5-5.1)
[2020-03-29 06:55] LABS: ALBUMIN 1.7 gm/dl (3.1-4.5); CREATININE 3.7 mg/dL (0.55-1.02); FREE T4 1.86 ng/dl (0.76-1.46); TOTAL PROTEIN 7.1 gm/dL (6.4-8.2)
[2020-03-29 07:00] LABS: THYROID STIM HORMONE (HS) 1.7 uIU/ml (0.358-4.75)
[2020-03-29 07:51] LABS: PLATELET SUFFICIENCY LOW (NORMAL); TARGET CELLS FEW; TOTAL CELLS COUNTED 100 #CELLS
[2020-03-29 08:00] VITALS: BP 94/37
--- NOTE | 2020-03-29 08:08 | NUR ---
Nursing screen received and chart reviewed. Patient admitted for acute respiratory failure with hypoxia. Patient from [facility]. If patient has a decline in ADLs, transfers, or mobility, please send OT orders. Thank you. Sharonda Echeverria OTR/L
--- NOTE | 2020-03-29 08:21 | NUR ---
PHYSICAL THERAPY Screen received pt is admitted from [facility] with respiratory failure and anemia. Pt may benfit from PT if decline in fucntional status from baseline, thank you. Edith Lilly PT
[2020-03-29 12:00] VITALS: BP 100/48
--- NOTE | 2020-03-29 12:00 | NUR ---
U NOTIFIED OF CONSULT.
--- NOTE | 2020-03-29 13:15 | NUR ---
Updates faxed to [facility] on this date. Patient can return to [facility] once medically stable.
--- NOTE | 2020-03-29 14:10 | NUR ---
PHYSICAL THERAPY Attempted to see pt at the bedside, per nsg BP has been low but receiving fluids can try activity as pt is able to tolerate. Pt c/o pain in bottom due to ulcers and stating "I just want to eat" due to low BP and pt's lunch just arriving repositioned in bed for comfort set up with meal and prepped food/drinks. Pt using utensils and eating meal w occasional cues to slow down and take smaller bites. Spoke with [facility] hospital nursing assistant reg above and will monitor pt. Will follow at a later date. Edith Lilly PT
[2020-03-29 16:00] VITALS: BP 100/34
[2020-03-29 20:00] VITALS: BP 86/48
--- NOTE | 2020-03-29 20:40 | NUR ---
24 HR chart check completed.
--- NOTE | 2020-03-29 21:00 | NUR ---
RESTING WITH EYES CLOSED, NO ACUTE DISTRESS NOTED. RESPIRATIONS EASY. LUNGS DIMINISHED, CLEAR. PULSE OX 94% RA. TESIO TO LEFT CHEST. MIDLINE RIGHT ARM. TRACE BLE EDEMA WITH HEEL PROTECTORS IN PLACE. CALL LIGHT WITHIN REACH. NO VOICED COMPLAINTS. BED ALARM MAINTAINED FOR SAFETY
[2020-03-30] VITALS: BP 97/41
--- NOTE | 2020-03-30 | NUR ---
SLEEPING. NO DISTRESS NOTED. RESPIRATIONS EASY. VSS. CALL LIGHT WITHIN REACH. NO VOICED COMPLAINTS. BED ALARM MAINTAINED FOR SAFETY
[2020-03-30 04:00] VITALS: BP 94/50
--- NOTE | 2020-03-30 06:00 | NUR ---
SLEPT THROUGHOUT NIGHT WITH NO DISTRESS NOTED. RESPIRATIONS EASY. CALL LIGHT WITHIN REACH. NO VOICED COMPLAINTS THIS SHIFT. BED ALARM MAINTAINED FOR SAFETY
[2020-03-30 06:14] LABS: MEAN CELL VOLUME 91.8 fl (81.0-99.0); MEAN CORPUSCULAR HGB 28.8 pg (27.0-31.0); MEAN CORPUSCULAR HGB CONC 31.4 g/dl (33.0-37.0); MEAN PLATELET VOLUME 11.5 fl (9.6-12.3); NUCLEATED RED BLOOD CELL 0.2 % (0.0-0.0); PLATELET COUNT AUTOMATED 116 10*3/uL (130-400); RED BLOOD COUNT 3.16 10*6/uL (4.10-5.10); RED CELL DISTRI WIDTH 17.8 % (0-14.5); WHITE BLOOD COUNT 13.8 10*3/uL (4.8-10.8)
[2020-03-30 06:26] LABS: ALBUMIN 2.1 gm/dl (3.1-4.5); CREATININE 4.66 mg/dL (0.55-1.02); POTASSIUM 4.3 mmol/L (3.5-5.1); TOTAL PROTEIN 7.3 gm/dL (6.4-8.2)
[2020-03-30 06:43] LABS: INTERNATIONAL NORM RATIO 1.2 (2.0-3.5)
[2020-03-30 06:45] LABS: BASOPHILS 2 % (0-1); BURR CELLS MODERATE; SCHISTOCYTES FEW; TOTAL CELLS COUNTED 100 #CELLS
[2020-03-30 06:46] LABS: PLATELET SUFFICIENCY LOW (NORMAL); TARGET CELLS MODERATE
[2020-03-30 08:00] VITALS: BP 84/46; BP 86/42
--- NOTE | 2020-03-30 10:00 | NUR ---
DRESSING CHANGES COMPLETE AT THIS TIME; PT TOLERATED WELL.
[2020-03-30 12:00] VITALS: BP 90/45
--- NOTE | 2020-03-30 12:42 | NUR ---
SPOKE WITH AT THIS TIME. ORDERED TO HOLD METOPROLOL AND AMNIODORONE.
--- NOTE | 2020-03-30 14:00 | NUR ---
NEW FENTANYL PATCH APPLIED TO LEFT BACK AT THIS TIME; COVERED WITH LARGE BANDAID.
[2020-03-30 16:00] VITALS: BP 95/54
[2020-03-30 20:00] VITALS: BP 102/48
--- NOTE | 2020-03-30 23:43 | NUR ---
PATIENT RESTING IN BED WITH NO S/S OF DISTRESS. DENIES NEEDS. BED IN LOWEST POSITION, BED ALARM ON, CALL LIGHT IN REACH
[2020-03-31] VITALS: BP 98/52
[2020-03-31 04:00] VITALS: BP 103/53
[2020-03-31 06:32] LABS: INTERNATIONAL NORM RATIO 1.2 (2.0-3.5)
[2020-03-31 08:00] VITALS: BP 116/90; BP 98/50
--- NOTE | 2020-03-31 10:00 | NUR ---
PT DENIES ANY NEEDS AT THIS TIME. DRESSINGS STILL DRY & IN PLACE. DENIES ANY PAIN. NO DISTRESS NOTED. CALL LIGHT IN REACH.
[2020-03-31 12:00] VITALS: BP 92/52
[2020-03-31 16:00] VITALS: BP 98/50
--- NOTE | 2020-03-31 19:42 | NUR ---
patient resting in bed with no needs made. resps easy and regular. bed in lowest position, call light in reach
[2020-03-31 20:00] VITALS: BP 93/49
--- NOTE | 2020-03-31 20:36 | NUR ---
medicated with prn tylenol for elevated rectal temp. will reassess
[2020-04-01] VITALS: BP 100/52
[2020-04-01 07:01] LABS: INTERNATIONAL NORM RATIO 1.6 (2.0-3.5)
[2020-04-01 08:45] VITALS: BP 111/41
--- NOTE | 2020-04-01 09:24 | NUR ---
Clinical updates faxed to [facility] on htis date. Once medically stable can return.
[2020-04-01 12:00] VITALS: BP 100/56
--- NOTE | 2020-04-01 14:30 | NUR ---
Physical Therapy evaluation completed on fourth floor with full evaluation to follow. Recommend physical therapy per plan of care and return to facility with follow PT/OT upon discharge. Thank you for this referral. Edith Lilly PT
[2020-04-01] MEDS ORDERED: METOPROLOL25 MG PO (14:36)
--- NOTE | 2020-04-01 14:58 | NUR ---
Patient is discharged at this time to return to [facility] via [place] @ [phone]. Dc information faxed, NH, nursing/park warden notified as well as the family.
[2020-04-01 16:00] VITALS: BP 123/55; BP 90/56
[2020-04-01 16:57] VITALS: BP 104/53
--- NOTE | 2020-04-01 17:59 | NUR ---
REPORT CALLED TO RECEIVING NURSE AT [facility]. PATIENT DISCHARGED TO [facility] BY [facility] AT THIS TIME.
== END 2020-04-01 14:58 | disposition other institution (70) | DRG 189 ==
LOC: ED 10:01 → EDHOLD 12:40 → 4E 12:40 → 5E 12:40 → 4E 03-28 13:05
PROVIDERS: Hospitalist; Internal Medicine Nephrology; Nurse Practitioner; Student in an Organized Health Care Education/Training Program; ADMIT Internal Medicine
PROC: 5A1D70Z Performance of Urinary Filtration, Intermittent, Less than 6 Hours Per Day (ICD-10-PCS; principal; 2020-03-28)
DX: J96.01 Acute respiratory failure with hypoxia (principal); E43 Unspecified severe protein-calorie malnutrition; N18.6 End stage renal disease; E87.1 Hypo-osmolality and hyponatremia; I12.0 Hypertensive chronic kidney disease with stage 5 chronic kidney disease or end stage renal disease; N39.0 Urinary tract infection, site not specified; F33.2 Major depressive disorder, recurrent severe without psychotic features; N17.9 Acute kidney failure, unspecified; E83.39 Other disorders of phosphorus metabolism; D64.9 Anemia, unspecified; D69.6 Thrombocytopenia, unspecified; D72.829 Elevated white blood cell count, unspecified; E87.8 Other disorders of electrolyte and fluid balance, not elsewhere classified; E83.41 Hypermagnesemia; K21.9 Gastro-esophageal reflux disease without esophagitis; E53.8 Deficiency of other specified B group vitamins; E11.40 Type 2 diabetes mellitus with diabetic neuropathy, unspecified; E11.51 Type 2 diabetes mellitus with diabetic peripheral angiopathy without gangrene; R00.1 Bradycardia, unspecified; R74.0 Nonspecific elevation of levels of transaminase and lactic acid dehydrogenase [LDH]; E78.5 Hyperlipidemia, unspecified; E11.22 Type 2 diabetes mellitus with diabetic chronic kidney disease; M81.0 Age-related osteoporosis without current pathological fracture; K74.60 Unspecified cirrhosis of liver; M19.90 Unspecified osteoarthritis, unspecified site; F41.9 Anxiety disorder, unspecified; Z66 Do not resuscitate; Z51.5 Encounter for palliative care; Z20.828 Contact with and (suspected) exposure to other viral communicable diseases; E03.9 Hypothyroidism, unspecified; I95.9 Hypotension, unspecified; Z99.2 Dependence on renal dialysis; Z86.14 Personal history of Methicillin resistant Staphylococcus aureus infection; Z87.440 Personal history of urinary (tract) infections; Z90.49 Acquired absence of other specified parts of digestive tract; Z82.49 Family history of ischemic heart disease and other diseases of the circulatory system; Z82.3 Family history of stroke; Z91.09 Other allergy status, other than to drugs and biological substances; Z88.1 Allergy status to other antibiotic agents; Z88.8 Allergy status to other drugs, medicaments and biological substances; Z79.899 Other long term (current) drug therapy; Z79.01 Long term (current) use of anticoagulants; Z95.2 Presence of prosthetic heart valve; Z68.26 Body mass index [BMI] 26.0-26.9, adult

== ENCOUNTER 2020-04-08 18:25 | Emergency (ER) | payer MEDICARE ==
[~2020-04-08] VITALS: Ht 167.6 cm; Wt 68.5 kg
[~2020-04-08 18:25] MED LIST changes: +EMOLLIENT500 GM T; +LACTULOSE10 GM/151 PO; +NORCO 5-325 TA1 EACH PO; +PROVENTIL HFA6.7 GM INH; +RENAL VITAMIN0.8 MG PO
[2020-04-08 18:43] VITALS: BP 166/95
== END 2020-04-08 21:50 | disposition expired ==
LOC: ED 18:25
DX: I46.9 Cardiac arrest, cause unspecified (principal); J96.01 Acute respiratory failure with hypoxia; E11.649 Type 2 diabetes mellitus with hypoglycemia without coma; I12.0 Hypertensive chronic kidney disease with stage 5 chronic kidney disease or end stage renal disease; E13.22 Other specified diabetes mellitus with diabetic chronic kidney disease; N18.6 End stage renal disease; E78.5 Hyperlipidemia, unspecified; K21.9 Gastro-esophageal reflux disease without esophagitis; E11.40 Type 2 diabetes mellitus with diabetic neuropathy, unspecified; M19.90 Unspecified osteoarthritis, unspecified site; M81.0 Age-related osteoporosis without current pathological fracture; Z88.8 Allergy status to other drugs, medicaments and biological substances; Z88.1 Allergy status to other antibiotic agents; Z79.899 Other long term (current) drug therapy; Z79.01 Long term (current) use of anticoagulants; Z79.4 Long term (current) use of insulin